=== PATIENT | male | born 1955 | race African-American/Black ===

== ENCOUNTER 2019-09-08 14:12 | Inpatient (IN) ==
--- NOTE | 2019-09-08 14:56 | PROVIDER DOCUMENTATION ---
HPI-Abdominal Pain/GI Problem - General Chief Complaint: Abdominal Pain Stated Complaint: STOMACH PAIN Time Seen by Provider: 09/08/19 14:37 Source: patient Allergies/Adverse Reactions: Patient Allergies Allergy/AdvReac Type Severity Reaction Status Date / Time morphine AdvReac Unknown Verified 09/02/19 05:43 Home Medications: Home Medication List Medication Instructions Recorded Confirmed Last Taken Type Amiodarone [Cordarone] 200 mg PO QHS 03/15/15 09/08/19 09/02/19 04:30 History 200 mg Famotidine 20 mg PO QHS 03/15/15 09/08/19 09/01/19 History 20 mg Hydralazine [Apresoline] 10 mg PO TID 03/15/15 09/08/19 09/02/19 04:30 History 50 mg Levothyroxine [Synthroid] 50 microgm PO QHS 03/15/15 09/08/19 09/01/19 History Furosemide [Lasix] 40 mg PO BID 07/04/16 09/08/19 09/01/19 History 40 mg Allopurinol 300 mg PO QHS 04/04/17 09/08/19 09/01/19 History 300 mg Calcitriol 0.25 mcg PO DIRECTED PRN 04/04/17 09/08/19 09/01/19 History Carvedilol 12.5 mg PO BID 04/04/17 09/08/19 09/02/19 04:30 History Metolazone 2.5 mg PO DIRECTED 04/04/17 09/08/19 09/01/19 History Apixaban [Eliquis] 5 mg PO BID 08/26/19 09/08/19 08/29/19 History Aspirin 81 mg PO QAM 08/26/19 09/08/19 08/29/19 History Exenatide Microspheres [Bydureon 2 mg SQ Q7D 08/26/19 09/08/19 08/30/19 History Bcise] Iron Fum,Ps Cmp/Vit C/Niacin 1 ea PO QHS 08/26/19 09/08/19 09/01/19 History [Integra Capsule] - History of Present Illness-ABD Nature of Presenting Problems: 63 YOM with PMH of CAD s/p bypass, HTN, Cholecystectomy on 09/02/19 presents with c/o worsening abdominal pain since surgery in the RLQ with associated n/v, weakness, single dark stool that occured today. Denies fever, chills, CP, SOB, diarrhea Abdominal Pain Onset Location: reports: RLQ Pain Radiation: reports: no radiation Quality of Pain: reports: aching, cramping Severity in ED: reports: severe Onset/Duration: reports: 2 days ago Timing: reports: still present Activities at Onset: reports: none, other (recent surgery) Exposure to sick contacts?: No Modifying Factors: improves with: nothing Associated Symptoms: reports: nausea, vomiting, weakness Last BM: this morning Dark Stools Present?: reports: black Rectal Bleeding: reports: none Rectal Pain: reports: none Emesis Description: reports: clear Bruising or Bleeding Gums?: No Similar Symptoms Previously?: No Recently seen or treated by another doctor?: Yes (recent castro by Dr. Bee) Review of Systems - Adult - REVIEW OF SYSTEMS - ADULT Constitutional: reports: no symptoms reported. denies: see HPI, chills, fever, fatique, night sweats, weight gain, weight loss, other Eyes: reports: no symptoms reported. denies: see HPI, discharge, dry eyes, decreased vision, blurred vision, double vision, eye pain, redness, other Ears, Nose, Mouth & Throat: reports: no symptoms reported. denies: see HPI, ear discharge, ear pain, hearing loss, tinnitus, epistaxis, sinus problem, nose pain, loose teeth, mouth/dental pain, mouth swelling, hoarseness, throat pain, throat swelling, other Cardiovascular: reports: no symptoms reported. denies: see HPI, chest pain, edema, heart murmur, irregular heart rate, orthopnea, palpitations, poor circulation, PND, syncope, other Respiratory: reports: no symptoms reported. denies: see HPI, chronic cough, cough, dyspnea on exertion, excessive sputum production, hemoptysis, pleurisy, shortness of breath, wheezing, other Gastrointestinal: reports: see HPI, abdominal pain, nausea, vomiting. denies: no symptoms reported, hematemesis, constipation, diarrhea, difficulty swallowing, frequent heartburn, poor appetite, rectal bleeding, other Genitourinary: reports: no symptoms reported. denies: see HPI, dysuria, discharge, frequency, flank pain, frequent UTI's, hematuria, hesitency, inc ontinence, urinary retention, urgency, other Musculoskeletal: reports: no symptoms reported. denies: see HPI, bone pain, back pain, frequent leg cramps, joint pain, joint swelling, muscle aches, muscle weakness, neck pain, other Integumentary: reports: no symptoms reported. denies: see HPI, hives, hair loss, itching, mole changes, nail changes, rash, skin sores/ulcer, skin thickening, other Neurological: reports: no symptoms reported. denies: see HPI, ataxia, dizziness/vertigo, headache/migraines, loss of balance, numbness, paresthesia, seizure, slurred speech, syncope, tremors, other Psychiatric: reports: no symptoms reported. denies: see HPI, anxiety, anti- depressant use, alcohol/drug dependence, depression, emotional problems, insomnia, panic attacks, suicidal thoughts, other Endocrine: reports: no symptoms reported. denies: see HPI, change in skin pigment, excessive sweating, goiter, cold intolerance, heat intolerance, increased hunger, increased thirst, polyuria, other Hematologic/Lymphatic: reports: no symptoms reported. denies: see HPI, blood clots, easy bruising, low blood count, lymphedema, prolonged bleeding, swollen lymph nodes, transfusions, other Allergic/Immunologic: reports: no symptoms reported. denies: see HPI, allergic reactions, allergic rhinitis, asthma, eczema, food allergy, frequent infections, hay fever, hives, positive PPD, urticaria, other Past History - Adult - PAST MEDICAL HISTORY-ADULT Review of Records: reports: Old Records Reviewed, Nursing Assessment Review, Social history reviewed & non-contributory. Major Childhood Illnesses: reports: denies history Cardiovascular: reports: CAD, HTN, hyperlipidemia Respiratory: reports: denies history Gastrointestinal: reports: denies history Obstetrical/Gynecological: reports: denies history Genitourinary: reports: kidney disease, prostate cancer Musculoskeletal: reports: denies history Neurological: reports: denies history Psychiatric: reports: denies history Endocrine/Immune: reports: Diabetes, thyroid disorder Other Conditions: reports: denies history - PRIOR SURGERIES/PROCEDURES Surgical/Procedure History: reports: cardiac stent, back/neck, other (thyroid, prostate) - IMMUNIZATION STATUS Childhood Immunizations: See Nurse Assessment Flu Vaccine: See Nurse Assessment - FAMILY HISTORY Family History: reviewed, not pertinent Physical Exam-General - PHYSICAL EXAM-ADULT Initial Vital Signs Reviewed: Yes - CONSTITUTIONAL General Appearance: alert, no apparent distress - EYES Eyes: PERRL/EOMI, pink conjunctivae - HEAD, EARS, NOSE, MOUTH & THROAT HENMT: normocephalic/atraumatic, moist mucous membranes, normal ENT inspection - NECK Neck: non-tender, full range of motion, supple - RESPIRATORY Respiratory: chest non-tender, lungs clear, normal breath sounds, no pleuratic chest pain, no respiratory distress, no accessory muscle use - CARDIOVASCULAR Cardiovascular: normal peripheral pulses, regular rate, rhythm, no edema, no gallop, no JVD, no murmur - GASTROINTESTINAL (ABDOMEN) Abdominal Exam: soft, tenderness - LYMPHATIC Lymphatic: no adenopathy - MUSCULOSKELETAL Back Exam: normal inspection Extremity: normal range of motion, non-tender, normal gait Peripheral Pulses: radial (R): 2+, radial (L): 2+ - SKIN Integumentary: normal color, normal turgor, warm/dry - NEUROLOGIC Neurologic: grossly normal - PSYCHIATRIC Psych/Mental Status: normal mood/affect, oriented x 3 Progress - PLAN OF CARE/RESULTS Progress/Plan/Lab Results: Vital Signs - 8 hr 09/08/19 14:28 Temperature 97.5 F L Pulse Rate 95 H Respiratory Rate 16 Blood Pressure 149/77 O2 Sat by Pulse Oximetry 99 Orders Category Date Time Status Saline Loc NOW Care 09/08/19 14:[address] ABD/PELVIS W/IV CONT ONLY [CT] Stat Exams 09/08/19 14:51 Ordered CBC WITH ELECTRONIC DIFF [HEME] Stat Lab 09/08/19 14:51 Uncollected COMPREHENSIVE METABOLIC PANEL [CHEM] Stat Lab 09/08/19 14:51 Uncollected PROTIME WITH INR [COAG] Stat Lab 09/08/19 14:51 Uncollected PTT [COAG] Stat Lab 09/08/19 14:51 Uncollected 1450: reviewed initial POC in triage room, pt and family are in agreement Result Diagrams: 09/15/19 06:55 09/14/19 08:15 - REASSESSMENT Reassessment #1 Time Reassessed: 16:30 (updated) Status: unchanged Reassessment #2 Time Reassessed: 17:45 Status: unchanged Reassessment #3 Time Reassessed: 18:18 Status: other (updated patient and family on labs) - EKG 1 Time of EKG reading by physician:: 16:04 EKG Read and Signed by:: Ilia Aguilera EKG Interpretation (*Must complete 3 of following elements*): Abnormal Rate: 96 Rhythm: NSR Antigo: normal QRS: LBB (incomplete), other (prolonged QTc) AR Interval: normal ST Wave: non-specific ST changes Prior EKG Comparison: changes noted (incomplete L BBB) - CT/MRI 1 CT Study: Abdomen, Pelvis Impression: See EMR Report (EXAM: CT ABDOMEN/PELVIS W/O CONTRAST 09/08/2019 HISTORY: RECENT CASTRO, NOW WITH PAIN WORSENING TECHNIQUE: This exam was performed using automated exposure control, adjustment of mA or kV according to patient size, and/or use of iterative reconstruction technique. COMMENT: There are no previous studies available for comparison. There is some apparent atelectasis or fibrosis in the posterior costophrenic sulci bilaterally. There is some fluid in the subphrenic space on the right. This has a CT density of over 73 Hounsfield units. There has been cholecystectomy. There is some dense material inferior to the danny hepatis and gallbladder fossa medial to the lower portion of the right hepatic lobe which may represent a hematoma. This measures over 6.7 cm in diameter. There is no evidence of biliary dilatation. There is no evidence of nephrolithiasis or hydronephrosis. There is a moderate amount of stool in the colon. The small bowel is not distended. There is hyperdense material present in the pelvis above the bladder and in the rectovesical pouch. This measures over 61 Hounsfield units in density. It is likely blood. There is ankylosis of the sacroiliac joints and severe degenerative disc and facet changes are present in the lumbar spine. There is no evidence of acute bony abnormality. IMPRESSION: Hematoma formation adjacent to the gallbladder fossa with free blood in the pelvis. Fluid in the right subphrenic space which is also likely blood. Electronically signed by Howard Valenzuela 09/08/2019 5:55 PM 09/08/19 [id number] Interpreting Physician: Howard Valenzuela MD Dictated Date/Time: 09/08/19 5480 cc: Aline Bee; Silvio So MD) - CONSULTS/PCP/HOSPITALIST Notification #1 *Consult/PCP/Hospitalist*: Dr. Dang Time Discussed: 18:09 Consult Disposition: Admit (will see in ED) Departure - Departure Date of Disposition Decision: 09/08/19 Time of Disposition Decision: 18:08 DIAGNOSIS: Elevated troponin, CHERRIE (acute kidney injury), Abdominal hematoma, Anticoagulant effect Disposition: ADMITTED INPATIENT 09 Certified Medical Emergency: Emergent Condition: Fair - Critical Care Note This patient required my direct & personal management of CC.: Yes Total Time (mins): 60 Critical Care Statement: This patient required my direct personal management to treat or rule out processes, the absence of which, could potentiallly result in sudden, clinically significant life or limb threatening deterioration. Attestation - Physician/ ALEJANDRA Attestation Patient care was provided by Advanced Practice Provider:: Yes Advanced Practice Provider:: Aline Bee Advanced Practice Provider documentation review:: The Mid-level provider documentation, treatment plan and medical decision making was reviewed by the vincenzo alonzo who agrees with all treatment and medical decision making by the MLP. The physician spent face to face time with patient:: Yes (Dr. Aguilera) Advanced Practice Provider documentation review:: Supervising physician onsite and consulted in the evaluation and care of this patient. The physician did have a face to face encounter with the patient.
[2019-09-08 15:46] LABS: URINE SOURCE CLEAN CATCH
[2019-09-08 15:51] LABS: BILIRUBIN URINE NEGATIVE (NEGATIVE); BLOOD URINE TRACE (NEGATIVE); COLOR YELLOW; GLUCOSE URINE 200 mg/dL (NEGATIVE); KETONE URINE NEGATIVE (NEGATIVE); LEUKOCYTES URINE NEGATIVE (NEGATIVE); NITRITE URINE NEGATIVE (NEGATIVE); PH URINE 5.5; PROTEIN URINE TRACE mg/dL (NEGATIVE); SP GRAVITY URINE 1.014; TURBIDITY URINE CLEAR (CLEAR); UROBILINOGEN URINE NORMAL (NORMAL)
[2019-09-08 15:57] LABS: UR EPITHELIAL CELLS <10 /HPF (<10); URINE BACTERIA NEGATIVE /HPF; URINE RBC <10 /HPF (<10); URINE WBC <10 /HPF (<10)
[2019-09-08 16:15] LABS: URINE CASTS NONE SEEN; URINE CRYSTALS NONE SEEN; URINE SMALL ROUND CELLS NONE SEEN; URINE YEAST NONE SEEN
[2019-09-08] MEDS ORDERED: ASPIRIN ONE (16:42)
[2019-09-08 17:01] LABS: INR 1.2; PROTIME 15.4 Seconds (11.0-16.0)
[2019-09-08 17:02] LABS: BASO# 0.01 X1000 (0.0-0.2); BASO% 0.1 % (0.0-0.8); HEMATOCRIT 20.5 % (42.0-52.0); HEMOGLOBIN 6.8 g/dL (14.0-18.0); IMM GRAN# 0.43 X1000 (0.0-0.04); IMM GRAN% 4.4 % (0.0-0.5); LYMPH# 1.03 X1000 (1.2-3.4); LYMPH% 10.6 % (20.5-51.1); MCHC 33.2 g/dL (33-37); MCV 81.3 FL (81-99); MONO# 1.07 X1000 (0.11-0.59); MPV 10.1 FL (7.4-10.4); NEUT# 7.19 X1000 (1.4-6.5); NEUT% 73.9 % (42.2-75.2); PLT 340 X1000 (130-400); PTT 34.9 Seconds (22.3-41.8); RBC 2.52 XMIL (4.7-6.1); RDW 14.6 % (11.5-14.5); WBC 9.73 X1000 (4.8-10.8)
--- NOTE | 2019-09-08 17:12 | EKG Report ---
Test Performed on : 09/08/2019 2:36:40 PM Test Reason : STOMACH PAIN Blood Pressure : / mmHG Vent. Rate : 096 BPM Atrial Rate : 096 BPM P-R Int : 174 ms QRS Dur : 118 ms QT Int : 396 ms P-R-T Axes : 067 014 063 degrees QTc Int : 500 ms Normal sinus rhythm. Incomplete left bundle branch block Nonspecific T wave abnormality Abnormal ECG When compared with ECG of 14-AUG-2019 13:05, (Unconfirmed) No significant change was found Unconfirmed Result
[2019-09-08 17:32] LABS: ALBUMIN 3.6 g/dL (3.5-5.0); CALCIUM 8.7 mg/dL (8.8-10.2); CREATININE 5.6 mg/dL (0.7-1.2); POTASSIUM 4.9 mmol/L (3.5-5.1); TOTAL BILIRUBIN 1.13 mg/dL (0.20-1.00); TOTAL PROTEIN 7.2 g/dL (6.3-8.3)
--- NOTE | 2019-09-08 17:57 | Diag Imaging Result Doc PS360 ---
EXAM: CT ABDOMEN/PELVIS W/O CONTRAST 09/08/2019 HISTORY: RECENT CASTRO, NOW WITH PAIN WORSENING TECHNIQUE: This exam was performed using automated exposure control, adjustment of mA or kV according to patient size, and/or use of iterative reconstruction technique. COMMENT: There are no previous studies available for comparison. There is some apparent atelectasis or fibrosis in the posterior costophrenic sulci bilaterally. There is some fluid in the subphrenic space on the right. This has a CT density of over 73 Hounsfield units. There has been cholecystectomy. There is some dense material inferior to the danny hepatis and gallbladder fossa medial to the lower portion of the right hepatic lobe which may represent a hematoma. This measures over 6.7 cm in diameter. There is no evidence of biliary dilatation. There is no evidence of nephrolithiasis or hydronephrosis. There is a moderate amount of stool in the colon. The small bowel is not distended. There is hyperdense material present in the pelvis above the bladder and in the rectovesical pouch. This measures over 61 Hounsfield units in density. It is likely blood. There is ankylosis of the sacroiliac joints and severe degenerative disc and facet changes are present in the lumbar spine. There is no evidence of acute bony abnormality. IMPRESSION: Hematoma formation adjacent to the gallbladder fossa with free blood in the pelvis. Fluid in the right subphrenic space which is also likely blood. Electronically signed by Howard Valenzuela 09/08/2019 5:55 PM
[2019-09-08] MEDS ORDERED: NS 1,000 ML IV ONE (18:00)
[2019-09-08] MEDS ORDERED: NS 500 ML IV ONE ×2 (18:17)
[2019-09-08] MEDS ORDERED: [UNRECOGNIZED DRUG - REMARK] MISC SCH (18:30)
[2019-09-08] MEDS ORDERED: DILUENT IV ONE (19:00)
[2019-09-08] MEDS ORDERED: KCENTRA IV ONE (19:00)
--- NOTE | 2019-09-08 19:59 | GENERAL SURGERY CONSULTATION ---
DATE: 09/08/2019 REASON FOR CONSULTATION: Hemoperitoneum. HISTORY OF PRESENT ILLNESS: This is a 63-year-old gentleman who underwent cholecystectomy by Dr. Bee laparoscopically on 09/02/2019. He is chronically anticoagulated for a bovine valve and atrial fibrillation, I believe. He also has a history of lower extremity venous ulcers. He is on Eliquis, which was resumed yesterday. Over the course of the day, he developed right-sided abdominal pain, came the ER where CT scan was obtained that showed fluid in the gallbladder fossa extending down along the pericolic gutter and the pelvis, consistent with blood. There is no free air. He was hemodynamically stable but was found to have a hemoglobin 6.8. His renal function has worsened acutely up to 5.6. Glucose is 304. MEDICAL HISTORY: As noted in his HPI. SURGICAL HISTORY: He has had RFA of bilateral lower extremities, recent cholecystectomy, spinal surgery, rotator cuff, prostatectomy, thyroidectomy and mitral bovine valve replacement. SOCIAL HISTORY: Denies any tobacco, alcohol or drugs currently. FAMILY HISTORY: Reviewed noncontributory. REVIEW OF SYSTEMS: Ten point negative otherwise. PHYSICAL EXAMINATION: He is afebrile. Pulse is in the 80s, blood pressure 149/77, oxygen saturation 99% on room air.General: He is alert, no acute distress. HEENT: There is no scleral icterus. Cardiovascular: Normal rate. Pulmonary: No increased work of breathing. Abdomen: Soft. There is no peritonitis. Incisions are intact. There is some bruising. There is tenderness along the right side of his abdomen but no rebound or guarding. There is no flank ecchymosis. White count is 9, hematocrit 20.5, platelets 340,000. INR is 1.20. Creatinine is 5.6. Sodium is low at 127, glucose is high at 304. I reviewed his CT scan, which is noncontrast. ASSESSMENT AND PLAN: A 63-year-old gentleman with bleeding on anticoagulation, status post laparoscopic cholecystectomy 6 days ago. He is hemodynamically stable. His abdominal exam is without peritonitis. As such, I would recommend correction of his anticoagulation. He has been given Kcentra and FFP in the emergency department. He will be transfused and will follow with serial hematocrits over the course of the night. He may ultimately require abdominal washout, but this would be ideal in the in a non-anticoagulated setting. If he were to deteriorate clinically, he will need more urgent operation. We did discuss the anticipated course of this. Also talked to Dr. Bee about it, and he is in agreement. He is being admitted to the hospitalist. Will follow along. cc: Daisy Dang MD MTDKaila
[2019-09-08] MEDS: DILAUDID IV PRN (23:39)
[2019-09-09] MEDS ORDERED: TYLENOL PR PRN (00:22)
[2019-09-09 02:02] LABS: CK INDEX 2.9 (0.0-2.5); CK-MB 9.46 ng/mL (0.0-5.0)
[2019-09-09] MEDS: DILAUDID IV PRN ×4 (03:51→17:05)
[2019-09-09 04:19] LABS: BASO# 0.02 X1000 (0.0-0.2); BASO% 0.3 % (0.0-0.8); EOS# 0.01 X1000 (0.0-0.7); EOS% 0.1 % (0.0-10.0); HEMATOCRIT 24.8 % (42.0-52.0); HEMOGLOBIN 8.4 g/dL (14.0-18.0); IMM GRAN# 0.27 X1000 (0.0-0.04); IMM GRAN% 3.6 % (0.0-0.5); LYMPH# 1.31 X1000 (1.2-3.4); LYMPH% 17.2 % (20.5-51.1); MCH 27.5 PG (27-31); MCHC 33.9 g/dL (33-37); MCV 81.3 FL (81-99); MONO# 0.81 X1000 (0.11-0.59); MONO% 10.7 % (1.7-9.3); MPV 9.7 FL (7.4-10.4); NEUT# 5.18 X1000 (1.4-6.5); NEUT% 68.1 % (42.2-75.2); PLT 327 X1000 (130-400); RBC 3.05 XMIL (4.7-6.1); RDW 14.1 % (11.5-14.5)
[2019-09-09 04:31] LABS: INR 1.15; PROTIME 14.9 Seconds (11.0-16.0)
[2019-09-09 04:32] LABS: PTT 36.1 Seconds (22.3-41.8)
[2019-09-09 04:35] LABS: ALB/GLOB RATIO 0.8; ALBUMIN 3.4 g/dL (3.5-5.0); CREATININE 4.9 mg/dL (0.7-1.2); MAGNESIUM 2.5 mg/dL (1.5-2.7); POTASSIUM 4.3 mmol/L (3.5-5.1); TOTAL BILIRUBIN 1.18 mg/dL (0.20-1.00); TOTAL PROTEIN 7.7 g/dL (6.3-8.3)
[2019-09-09 04:53] LABS: IRON SATURATION 8 %; TIBC 362 ug/dL; TOTAL IRON 29 ug/dL (53-167); UNBOUND IRON 333 ug/dL (112-346)
[2019-09-09 05:10] LABS: BANDS 8 % (0-1); LYMPHS 6 % (21-51); MONO 6 % (1-9); SEGS 68 % (42-75)
[2019-09-09 05:11] LABS: TSH 68.66 uIUmL (0.27-4.20)
[2019-09-09 05:33] LABS: CK INDEX 2.8 (0.0-2.5); CK-MB 9.37 ng/mL (0.0-5.0)
[2019-09-09] MEDS: PROTONIX IV SCH ×2 (06:03→20:58)
[2019-09-09] MEDS: HUMULIN R SUBQ SCH ×4 (06:28→20:58)
--- NOTE | 2019-09-09 07:05 | HISTORY AND PHYSICAL ---
PRIMARY CARE PROVIDER: Dr. Silvio So. ESTHETICIAN/OWNER: Dr. Orlando. DATE AND TIME: 09/08/2019 at 2000. CHIEF COMPLAINT: Abdominal pain. HISTORY OF PRESENT ILLNESS: Mr. Marx is a 63-year-old male who just recently did undergo a laparoscopic cholecystectomy with Dr. Bee on 09/02. From what I understand, this was performed as an outpatient surgery. The patient does take Eliquis secondary to a history of atrial fibrillation and a mitral bovine valve replacement. His Eliquis had been held for his surgery. He did start this back yesterday on 09/07. The patient has had some abdominal pain since his surgery, though he stated this became worse yesterday and did progressively get worse over the course of the day. He states this is in his right side though does radiate across his abdomen to the left, and around into his back as well. He describes it as an achy cramping type pain in nature. He has also reported that he has had some associated nausea and vomiting. He denies any diarrhea, though stated that he did have a melanotic stool this morning. He has reported that he has felt dizzy, weak, and fatigued as well. He denies any fever, body aches, or chills. He denies any chest pain, shortness of breath, or cough. He denies any dysuria or urinary frequency. The patient does report that he has some swelling in his bilateral lower extremities occasionally, though this does not appear to be worse at this time. His and niece were present at bedside during my examination. The patient's vital signs have been stable. Heart rate and blood pressure are within normal limits. He is 99 to 100 percent on room air. Upon further evaluation in the ER, I did note that he was anemic with a hemoglobin of 6.8, hematocrit 20.5, and platelet count is 340,000. PTT 15.4, INR 1.2, and PTT was 34.9. Also, noted that he does have chronic kidney disease though he does have acute kidney injury at this time. His creatinine has increased. It is currently 5.6 with GFR 13. Also, noted were his troponin TI sensitivity as well as his CK were both elevated. This could be secondary to his renal function. The patient is denying any chest pain at this time. EKG showed normal sinus rhythm with incomplete left bundle branch block and nonspecific T-wave abnormality at a rate of 96. His CT did show a hematoma formation adjacent to the gallbladder fossa with free blood in the pelvis. Fluid at the right subphrenic space, which is also likely blood. Dr. Dang with Surgery was notified. He has evaluated the patient as well as Dr. Bee. We did evaluate the patient at the time of my examination. The patient is going to be placed NPO. We are going to give blood products of packed red blood cells and FFP. He will also receive Kcentra. He will be placed in the PVC unit for close monitoring. REVIEW OF SYSTEMS: A 14 point review of systems was conducted with the patient. All were negative except for pertinent positives mentioned in the HPI. PAST MEDICAL HISTORY: 1. Atrial fibrillation, paroxysmal, proximal. The patient is currently in sinus rhythm. 2. Nonischemic cardiomyopathy. 3. Systolic congestive heart failure with a last known ejection fraction of 60 to 65 percent in February of 2018. 4. Hypertension. 5. Chronic kidney disease. 6. Hyperlipidemia with hypertriglyceridemia. 7. Diabetes mellitus type 2. 8. History of prostate cancer status post prostatectomy. 9. Coronary artery disease status post CABG and stents. 10. History of CVA. 11. Peripheral vascular disease. 12. Chronic venous stasis. 13. Hypothyroidism. 14. History of bovine mitral valve replacement. PAST SURGICAL HISTORY: 1. RFA of bilateral lower extremities. 2. Recent laparoscopic cholecystectomy with Dr. Bee on 09/02/2019. 3. Spinal surgery. 4. Rotator cuff repair. 5. Prostatectomy. 6. Thyroidectomy. 7. Mitral valve bovine valve replacement. 8. Coronary artery bypass graft. 9. Coronary stent. 10. Permanent pacemaker placement. SOCIAL HISTORY: The patient has no known history of tobacco, alcohol or illicit drug use. He does live at home with his . She was present at bedside during my examination. FAMILY HISTORY: Positive for his mother having a history of diabetes and hypertension. She secondary to a brain aneurysm. His father had a history of congestive heart failure. He did have a brother who at age 42 from myocardial infarction. ALLERGIES: Patient has allergy to morphine. It causes him to have hallucinations and confusion. HOME MEDICATIONS: 1. Allopurinol 300 mg p.o. at bedtime. 2. Amiodarone 200 mg p.o. at bedtime. 3. Eliquis 5 mg p.o. b.i.d. 4. Aspirin 81 mg p.o. daily. 5. Calcitriol 0.25 mg p.o. as directed. 6. Carvedilol 12.5 mg p.o. b.i.d. 7. Bydureon Bcise 2 mg subcu q.7 days. 8. Famotidine 20 mg p.o. at bedtime. 9. Lasix 40 mg p.o. b.i.d. 10. Apresoline 10 mg p.o. t.i.d. 11. Integra capsule 1 p.o. at bedtime. 12. Levothyroxine 50 mcg p.o. at bedtime. 13. The patient states he did previously take metolazone but he is not taking this at this time. DIAGNOSTIC DATA/LABORATORY RESULTS: White blood cell count is 9730, hemoglobin 6.8, hematocrit 20.5, and platelet count is 340,000. PT 15.4, INR 1.2, PTT is 34.9. Sodium 127, potassium 4.9, chloride 84, serum bicarb is 22, BUN 11, and creatinine 5.6, GFR 13, glucose 304, and calcium 8.7. Liver function tests within normal limits except for total bilirubin slightly elevated at 1.13. CK 328, CK index 2.9, CK-MB is 9.46. Troponin T sensitivity is 165 with a repeat of 164. Urinalysis was obtained via clean catch, and was positive for trace protein, glucose, and trace blood. This was negative for ketones, nitrites, leukocytes, white blood cells, or bacteria. EKG showed normal sinus rhythm with incomplete left bundle branch block and nonspecific T-wave abnormality at a rate of 96 with a QTc of 500. CT of the abdomen and pelvis did show a hematoma formation adjacent to the gallbladder fossa with free blood in the pelvis. There was fluid in the right subphrenic space which also is likely blood. PHYSICAL EXAMINATION: VITAL SIGNS: Temperature 97.7 degrees, heart rate 90, respirations 20, blood pressure is 133/71, and oxygen saturation is 96% on room air. GENERAL: Mr. Lim is a very pleasant 63-year-old male who was resting in the ER stretcher. He does not appear to feel well though is not in any distress. He was reporting some abdominal pain. He was awake, alert, and able to answer questions and follow commands appropriately. HEENT: Head is atraumatic, normocephalic. Pupils were equal, round, reactive to light, were 3 mm bilaterally and brisk. Sub-conjunctivae were pale. Oral mucosa is moist. Oropharynx is clear. NECK: Supple. Trachea midline. CARDIOVASCULAR: Patient has S1-S2 present. He does have a murmur noted as well. He has a regular rate and rhythm. PULMONARY: Patient has symmetrical chest expansion bilaterally. Lung sounds are clear to auscultation bilateral full bird. ABDOMEN: Soft, but is distended. He did have generalized abdominal tenderness noted. This was worse on the right. Bowel sounds were present in all 4 quadrants, and were slightly hyperactive. EXTREMITIES: No cyanosis or edema present. Pulse, motor and sensory were intact in all extremities. Radial pulses are 2+ bilaterally. Pedal pulses 1+ bilaterally. INTEGUMENTARY: The patient's skin color is slightly pale, though is dry and intact. NEUROLOGICAL: Patient is alert and oriented to person, place, time, and situation. He was able to move all extremities. There are no focal neurological deficits noted. ASSESSMENT AND PLAN: 1. Hemoperitoneum. The patient had been seen by Dr. Dang and Dr. Bee who did perform his surgery. The patient has been seen by the surgical team which included Dr. Dang and Dr. Bee who performed his surgery. He will remain NPO at this time. We are going to transfuse him with 1 unit of FFP, 1 unit of packed red blood cells. He did also already receive Kcentra 3318 units IV. The patient is Carla. The patient is hemodynamically stable at this time. We are going to provide some general IV fluid hydration as well. He will receive 1 L of normal saline at 120 mL/h. He also will receive volume with his blood products. The patient does have a history of congestive heart failure. We will monitor his fluid volume status in the morning and determine further IV hydration from there. We will await further recommendations from the surgical team. 2. Symptomatic anemia. This is likely secondary to his blood loss. Also of note, the patient did report melanotic stool today prior to arrival to the ER. He did have a positive Hemoccult stool as well. We will monitor this closely though this may likely indicate possible gastrointestinal bleeding as well. He will place the patient with IV Protonix q.24 hours. We will continue to monitor this closely. We have ordered an anemia profile. 3. Chronic anticoagulation related to history of paroxysmal atrial fibrillation and a mitral bovine valve replacement. We are holding his anticoagulation at this time given his hemoperitoneum and symptomatic anemia. The patient is in sinus rhythm at this time. 4. Coronary artery disease status post coronary artery bypass graft and stents. 5. History of mitral, bovine valve replacement. 6. Acute on chronic kidney disease. The patient does have a baseline creatinine that is anywhere from 2.5 to 3.3. Upon discharge after his surgery, his creatinine was 2.7. At this time, it has increased to 5.6. This is likely secondary to his blood loss. We are going to provide some IV hydration as well as he will receive volume with blood and FFP as well. We will avoid nephrotoxic medications and renally dose medicines as necessary. We will monitor this closely. We will recheck a CMP in the morning. 7. Diabetes mellitus type 2. We will do pattern fingerstick blood sugars, and place him with a sliding scale regular insulin with patient specific dosing due to the patient is NPO at this time. 8. Hypertension. The patient's blood pressures are within normal limits. He is NPO at this time. We will monitor closely and implement IV antihypertensives as necessary. 9. Hypothyroidism. The patient does take oral levothyroxine. He is NPO at this time. We are going to check a TSH in the morning. We will continue to follow. 10. DVT prophylaxis to be provided with sequential compression devices. The patient has been placed on the PVC unit for close monitoring. He will be on continuous cardiac telemetry. He will have vital signs q.4 hours. We will do strict intake and output, incentive spirometry. The patient's troponin and CK's are elevated though he is not reporting any chest pain at this time. This could be secondary to his acute kidney injury as well as he did have symptomatic anemia present also. We will continue to monitor this closely. We will continue with the series of cardiac enzymes. We will repeat EKG in the morning. Further orders and recommendations pending hospital course, diagnostic studies, and physician evaluation. Dictated by CECELIA Rosas for Manuel Curiel MD I have performed a face to face diagnostic evalulation. Labs/xrays- reviewed. Exam- chest- clear, CV- regular, Abd- diffuse tenderness. A/P- Hemoperitoneum, anemia- Admit, NPO, pain control, general surgery consult. Dr. Curiel cc: Manuel Curiel MD [facility]
--- NOTE | 2019-09-09 07:11 | GENERAL SURGERY PROGRESS NOTE ---
DATE: 09/09/2019 SUBJECTIVE: Mr. Marx is now a week after laparoscopic cholecystectomy that apparently has been complicated by some perioperative bleeding. He had received perioperative Lovenox due to his valve and atrial fibrillation. He is routinely on Eliquis. This morning, he is doing generally well. He is afebrile with a heart rate of 87, blood pressure 136/61. His hemoglobin is up to 8.4, hematocrit 24.8. His abdomen is mildly tender. His white count is 7600 with 68% neutrophils. His BUN yesterday upon admission was 111 with a creatinine of 5.6; that is in the setting of typical BUN around 40 and a creatinine in the mid 2s. ASSESSMENT: This gentleman no doubt had perioperative bleeding due to his anticoagulation. There is no evidence of ongoing bleeding. His hemodynamics are stable. His hemoglobin responded nicely to packed red blood cell infusion. He has suffered some intravascular volume depletion and acute kidney injury. I do recommend adequate intravenous hydration. I do not see any urgency of taking to the operating room in the setting of an absence of ongoing bleeding. I will rather feed him and allow him to recover. I will continue to follow along. cc: Lebron Bee MD
--- NOTE | 2019-09-09 08:18 | EKG Report ---
Test Performed on : 09/09/2019 05:47:23 AM Test Reason : Elevated Troponin Blood Pressure : / mmHG Vent. Rate : 085 BPM Atrial Rate : 085 BPM P-R Int : 182 ms QRS Dur : 130 ms QT Int : 460 ms P-R-T Axes : 045 -12 093 degrees QTc Int : 547 ms Normal sinus rhythm. Possible Left atrial enlargement Nonspecific intraventricular block Abnormal QRS-T angle, consider primary T wave abnormality Abnormal ECG When compared with ECG of 08-SEP-2019 14:36, (Unconfirmed) No significant change was found Confirmed by Morelia Young MD ([id number]) on 09/09/2019 8:41:26 AM
[2019-09-09] MEDS ORDERED: BLISTEX MEDICATED BERRY LIP BALM TOP PRN (10:04)
[2019-09-09] MEDS ORDERED: NON-FORMULARY MED (Exenatide Microspheres [Bydureon Bcise] 2 MG) SQ SCH (18:00)
--- NOTE | 2019-09-09 18:26 | PROGRESS NOTE ---
DATE: 09/09/2019 SUBJECTIVE: Patient has no major complaints. OBJECTIVE: Blood pressure is 156/61, heart rate of 88, respiratory rate of 18, temperature of 97.5 degrees. Cardiovascular: Regular rate and rhythm. Pulmonary: Bilateral breath sounds. Clear to auscultation. Gastrointestinal: Soft, nontender, nondistended. Bowel sounds are positive. Extremities: No clubbing or cyanosis. Lymphatic: No peripheral edema. Neurological: Nonfocal. LABORATORY DATA: White count 7, hemoglobin and hematocrit 8 and 24, platelets 327,000. Sodium is 129, creatinine 4.9, glucose 269. TSH 68.66. B12 is 897. PROBLEM LIST: 1. Hemoperitoneum after a laparoscopic cholecystectomy and patient had been on anticoagulants. His hemoglobin and hematocrit has stabilized after transfusion. His INR is normal. The only thing that concerns me a little bit is that he did report melena this week and 2 days ago he had black tarry stools, which would not be explained by the hemoperitoneum. He had a hematoma near the gallbladder wall fossa, so I am not entirely sure if possibly there is a gastrointestinal bleed issue. I will get an opinion from Gastroenterology and see if he needs endoscopy. Obviously, we are going to hold all his anticoagulants, continue his amiodarone, stop his aspirin. Patient is overall stable. We will continue to monitor closely. 2. Hypothyroidism. Does not seem to be controlled. We will continue. I will check a free T4 and then we will see what the numbers show. Adjust his Synthroid dose based on those results. DISPOSITION: Pending his clinical status. cc: Erich Carl MD
[2019-09-09] MEDS: NS 1,000 ML IV SCH (18:36)
[2019-09-09 19:35] LABS: HEMATOCRIT 22.9 % (42.0-52.0); HEMOGLOBIN 7.6 g/dL (14.0-18.0)
[2019-09-09] MEDS: SYNTHROID PO SCH (20:58)
[2019-09-09] MEDS: SODIUM CHLORIDE 0.9% INJ SCH (20:58)
[2019-09-09] MEDS: PEPCID PO SCH (20:58)
[2019-09-09] MEDS: CORDARONE PO SCH (20:58)
[2019-09-09] MEDS: COREG PO SCH (20:58)
[2019-09-10] MEDS: DILAUDID IV PRN ×4 (02:11→20:40)
[2019-09-10] MEDS: HUMULIN R SUBQ SCH ×4 (06:18→20:34)
[2019-09-10 06:22] LABS: BASO# 0.02 X1000 (0.0-0.2); BASO% 0.2 % (0.0-0.8); EOS# 0.02 X1000 (0.0-0.7); EOS% 0.2 % (0.0-10.0); HEMATOCRIT 22.6 % (42.0-52.0); HEMOGLOBIN 7.5 g/dL (14.0-18.0); IMM GRAN# 0.26 X1000 (0.0-0.04); IMM GRAN% 3.1 % (0.0-0.5); LYMPH% 9.6 % (20.5-51.1); MCH 28.1 PG (27-31); MCHC 33.2 g/dL (33-37); MCV 84.6 FL (81-99); MONO# 1.21 X1000 (0.11-0.59); MONO% 14.5 % (1.7-9.3); MPV 9.8 FL (7.4-10.4); NEUT# 6.05 X1000 (1.4-6.5); NEUT% 72.4 % (42.2-75.2); PLT 347 X1000 (130-400); RBC 2.67 XMIL (4.7-6.1); RDW 14.8 % (11.5-14.5); WBC 8.36 X1000 (4.8-10.8)
[2019-09-10 06:50] LABS: CALCIUM 8.8 mg/dL (8.8-10.2); CREATININE 4.2 mg/dL (0.7-1.2); POTASSIUM 4.5 mmol/L (3.5-5.1)
[2019-09-10] MEDS: NS 1,000 ML IV SCH ×2 (08:01→20:33)
[2019-09-10] MEDS: PROTONIX IV SCH (08:02)
[2019-09-10] MEDS: COREG PO SCH ×2 (08:02→20:34)
[2019-09-10] MEDS: SODIUM CHLORIDE 0.9% INJ SCH (08:02)
[2019-09-10] MEDS: ROCALTROL PO SCH (08:02)
[2019-09-10] MEDS: ZAROXOLYN PO SCH (08:02)
[2019-09-10] MEDS: ZOFRAN IV PRN (08:20)
[2019-09-10] MEDS ORDERED: DIPRIVAN 1% ONE (11:00)
[2019-09-10] MEDS ORDERED: BICITRA ONE (11:14)
[2019-09-10] MEDS ORDERED: PEPCID ONE (11:14)
[2019-09-10] MEDS ORDERED: REGLAN ONE (11:14)
[2019-09-10] MEDS ORDERED: AMIDATE ONE (11:22)
[2019-09-10] MEDS ORDERED: EPHEDRINE ONE (11:36)
--- NOTE | 2019-09-10 11:49 | ENDOSCOPY OPERATIVE NOTE ---
[facility] ENDOSCOPY OPERATIVE NOTE , EGD PROCEDURE REPORT PATIENT: Isaias Marx ADMISSION DATE: 09/10/2019 MR#: [id number] : 1955 PROCEDURE DATE: 09/10/2019 SURGEON: Benjamín Arthur MD STATUS: inpatient QUALITY ASSURANCE MONITOR BODY: Lissa Castaneda and Bernardo Bass PREOPERATIVE DIAGNOSIS: The patient is a 63 yr old male here for an EGD due to melena and acute post hemorrhagic anemia. PROCEDURE PERFORMED: EGD w/ snare technique MEDICATIONS: Per Anesthesia TOPICAL ANESTHETIC: none CONSENT: The patient understands the risks and benefits of the procedure and understands that these r isks include, but are not limited to: sedation, allergic reaction, infection, perforation and/or bleeding. Alternative means of evaluation and treatment include, among others: physical exam, x-rays, and/or surgical intervention. The patient elects to proceed with this endoscopic procedure. HISORY AND PHYSICAL: 09/10/2019 DESCRIPTION OF PROCEDURE: During intra-op preparation period all mechanical and medical equipment was checked for proper function. Hand hygiene and appropriate measures for infection prevention was taken. After the risks, benefits and alternatives of the procedure were thoroughly explained, Informed consent was verified, confirmed and timeout was successfully executed by the treatment team. The patient was anesthetized with topical anesthesia and the [id number] ([id number]) endoscope was introduced through the mouth and advanced to the second portion of the duoden um. Retroflexion was performed in the stomach and revealed no abnormalities. The gastroscope was then slowly withdraw n and removed. ESOPHAGUS: Mild reflux esophagitis was found in the distal esophagus. STOMACH: Two 12 mm semi-pedunculated polyps were found in the gastric body. Polypectomies were perfo rmed using snare cautery. The resection was complete, the polyp tissue was completely retrieved and sent to histology . The stomach otherwise appeared normal. DUODENUM: The duodenal mucosa showed no abnormalities. SPECIMENS REMOVED: No ADVERSE EVENTS: There were no complications. POSTOPERATIVE DIAGNOSIS: 1. Reflux esophagitis in the distal esophagus 2. Two 12 mm polyps were found in the gastric body; polypectomies were performed using snare cautery 3. The stomach otherwise appeared normal 4. The duodenal mucosa showed no abnormalities RECOMMENDATIONS: 1. Resume pre-procedure medications 2. Resume previous diet 3. Follow-up biopsy results in 2 weeks 4. Transfer to [facility] REPEAT EXAM: Benjamín Arthur MD eSigned: Benjamín Arthur MD 09/10/2019 11:48 AM cc: PATIENT NAME: Isaias Marx MR#: [id number]
--- NOTE | 2019-09-10 15:15 | PROGRESS NOTE ---
DATE: 09/10/2019 SUBJECTIVE: Patient has no major complaints. OBJECTIVE: Vital Signs: Blood pressure 120/59, heart rate 77, respiratory rate of 19, temperature 97.7 degrees. 100% on room air. Cardiovascular: Regular rate and rhythm. Pulmonary: Bilateral breath sounds clear to auscultation. Gastrointestinal: Abdomen soft, nontender, nondistended. Bowel sounds are positive. LABORATORY DATA: White count 8, hemoglobin and hematocrit 7.5 and 22, platelets 344,000. Creatinine is 4.2. Not really sure what his baseline is. This is much worse because it looks like he was 2.6, 2.7. He has been this high before but right now he is at stage 4. PROBLEM LIST: 1. Hemoperitoneum after laparoscopic cholecystectomy. The patient had been on anticoagulants which are being held. Fresh frozen plasma was given and improved overall. Hemoglobin and hematocrit has overall been stable. We will continue to monitor. 2. Potential gastrointestinal bleed. There was no gross bleeding, but he did have polypectomies. He reported melena. Dr. Arthur has graciously already done endoscopy on him and removed some polyps, but no active bleeding. 3. Atrial fibrillation. He is on amiodarone. Continue his regular medications. 4. Hypothyroidism. His TSH is 68. In any case patient is stable. We will continue to follow. I think he is probably okay to go to the floor at the discretion of surgery, but we will follow. We do need to work on bowel regimen and getting him up out of bed. I feel like he is kind of just lying in bed here with no anticoagulants at risk for deep venous thrombosis. cc: Erich Carl MD
--- NOTE | 2019-09-10 15:24 | GASTROENTEROLOGY CONSULTATION ---
DATE: 09/10/2019 REASON FOR CONSULTATION: Anemia, melena, Hemoccult-positive stool. HISTORY OF PRESENT ILLNESS: This is a 63-year-old male who was admitted on 09/08/2019 with abdominal pain. He had recent cholecystectomy on 09/02/[address] Lebron Bee. The patient had come into the emergency room for abdominal pain. CT scan had showed hematoma formation adjacent to the gallbladder fossa with free blood in the pelvis, fluid in the right subphrenic space also likely to be blood. The patient has had decrease in his hemoglobin and hematocrit. He had fresh frozen plasma on 09/08/2019 and a unit of packed red blood cells on 09/08/2019. He does have a history of mitral valve replacement, bovine. He had been on Eliquis and I believe the Eliquis was restarted the day before his admission. He had also been on Lovenox, from the records I believe all those anticoagulants have been held since admission. Today his hemoglobin and hematocrit was 7.5 and 22.6. He does have another unit of packed red blood cells ordered. PT/INR on 09/09/2019 showed PT of 14.9, INR 1.15, PTT 36.1. The patient does report continued abdominal pain. He reports weakness. He has not been able to get up much. He does report some dizziness. He had noticed a black stool about 2 days ago. He states he has not had a bowel movement over the last several days. He has not been able to eat much. A stool for Hemoccult done on 09/08 was positive. PAST MEDICAL HISTORY: History of recent cholecystectomy on 09/02/2019, history of atrial fibrillation, history of cardiomyopathy, systolic congestive heart failure, hypertension, chronic kidney disease, hyperlipidemia, hypertriglyceridemia, diabetes type 2, history of prostate cancer, coronary artery disease, history of CABG and cardiovascular stents, history of CVA, history of peripheral vascular disease, history of chronic venous stasis ulcers, hypothyroidism, history of bovine mitral valve replacement on chronic anticoagulation. PAST SURGICAL HISTORY: Recent laparoscopic cholecystectomy by Dr. Bee on 09/02/2019, bilateral lower extremity surgeries, vascular surgery, spinal surgery, rotator cuff repair, prostatectomy, thyroidectomy, mitral valve bovine valve replacement, coronary artery bypass graft, coronary artery stents, pacemaker placement. ALLERGIES: Morphine causing unknown reaction. HOME MEDICATIONS: Allopurinol 300 mg every night, Cordarone 200 mg every night, Eliquis 5 mg twice a day which has been held, aspirin 81 mg daily has been held, calcitriol 0.25 mcg as directed, carvedilol 12.5 mg twice a day, Bydureon 2 mg subcutaneous every 7 days, famotidine 20 mg every night, Lasix 40 mg twice a day, Apresoline 10 mg 3 times a day, iron plus multivitamin every night, levothyroxine 50 mcg every night, metolazone 2.5 mg as directed. SOCIAL HISTORY: No tobacco or alcohol use. He is . FAMILY HISTORY: For diabetes and hypertension in his mother of brain aneurysm. Father had congestive heart failure. Brother with myocardial infarction at age 42. REVIEW OF SYSTEMS: Per history of present illness. PHYSICAL EXAMINATION: Vital Signs: Temperature 97.8 degrees, pulse 79, respirations 12, blood pressure 100/55. General: Patient was awake and alert. His was at the bedside. He is complaining of some abdominal pain. He states he had a black tarry stool several days ago. He has had some dizziness. He is weak. HEENT: Normocephalic, atraumatic. Pupils equal, round, reactive to light. Sclerae nonicteric. Cardiovascular: Regular rate and rhythm. History of pacemaker. Respiratory: Lung sounds essentially clear. Abdomen: Healing laparoscopic incisions from cholecystectomy on 09/02/2019. Otherwise soft with some tenderness noted. Positive bowel sounds. Neurological: Cranial nerves 2-12 grossly intact. Patient is awake and alert. LABORATORY: Hematology. WBC 8.36, hemoglobin 7.5, hematocrit 22.6, MCV 84.6, platelet 347,000. Coagulation. Pro time 14.9, INR 1.15, PTT 36.1. Chemistry. Sodium 133, potassium 4.5, chloride 93, CO2 21, BUN 95, creatinine 4.2, glucose 190, calcium 8.8, magnesium 2.5. Iron 29, TIBC 362, percent saturation 8, ferritin 210, total bilirubin 1.18, AST 20, ALT 22, alkaline phosphatase 98, creatine kinase 33, creatine kinase index 2.8, MB 9.37, troponin 161, TSH 68.66, vitamin B12 897. IMAGING STUDY RESULTS: CT scan of the abdomen and pelvis on 09/08/2019 showed hematoma formation adjacent to the gallbladder fossa with free blood in the pelvis and fluid in the right subphrenic space likely blood. Patient had Hemoccult-positive stool. ASSESSMENT AND PLAN: 1. Recent cholecystectomy with hemoperitoneum after surgery. 2. Anemia. Patient has received packed red blood cells along with a unit of fresh frozen plasma. 3. Melena. 4. Hemoccult-positive stool. 5. Multiple medical problems including congestive heart failure, coronary artery disease, history of coronary artery bypass graft, mitral valve replacement with bovine valve, diabetes, hypothyroidism, history of prostate cancer, history of peripheral vascular disease, history of pacemaker placement. PLAN: Continue supportive care. Continue to monitor for active bleeding. Monitor hemoglobin and hematocrit. Transfuse packed red blood cells as needed. We will try to proceed with EGD today for GI evaluation for possible GI bleeding. The patient's anticoagulants have been held at this time. We will continue to follow and further plans to be made according to findings. I have discussed EGD procedure along with benefits and risks with the patient and his and they wish to proceed. I have discussed this case with Dr. Arthur. Thank you for this consultation. Dictated by CECELIA Serrato for Benjamín Arthur MD cc: CECELIA Pat MD
--- NOTE | 2019-09-10 15:31 | GENERAL SURGERY PROGRESS NOTE ---
DATE: 09/10/2019 SUBJECTIVE: Mr. Marx is doing generally well. OBJECTIVE: His heart rate is 75, blood pressure 118/67. LABORATORY DATA: His hemoglobin today was 7.5, hematocrit 22.6. BUN is down to 95, creatinine down to 4.2. PLAN: Transfuse 1 unit of blood. He is to undergo endoscopy today to evaluate for any possible intraluminal GI bleeding. The plan is to continue to observe him unless he shows evidence of ongoing bleeding. Also hydrate him in order to bring his BUN and creatinine back down to baseline. If at any point we feel that he is continuing to bleed intra-abdominally, we will plan laparoscopy, but this should not happen since his coagulopathy has been corrected. cc: Lebron Bee MD
[2019-09-10] MEDS: CORDARONE PO SCH (20:33)
[2019-09-10] MEDS: SYNTHROID PO SCH (20:33)
[2019-09-10] MEDS: APRESOLINE PO SCH (20:33)
[2019-09-10] MEDS: PEPCID PO SCH (20:34)
[2019-09-10] MEDS: PATIENT'S OWN MED PO SCH (20:34)
[2019-09-10] MEDS ORDERED: APRESOLINE PO SCH (21:00)
[2019-09-11] MEDS: DILAUDID IV PRN ×6 (00:43→22:49)
[2019-09-11] MEDS: APRESOLINE PO SCH ×3 (06:14→22:43)
[2019-09-11] MEDS: PRILOSEC PO SCH (06:14)
[2019-09-11] MEDS: HUMULIN R SUBQ SCH ×4 (06:15→22:39)
[2019-09-11 06:50] LABS: BASO# 0.02 X1000 (0.0-0.2); BASO% 0.2 % (0.0-0.8); EOS# 0.03 X1000 (0.0-0.7); EOS% 0.3 % (0.0-10.0); HEMATOCRIT 26.4 % (42.0-52.0); HEMOGLOBIN 8.6 g/dL (14.0-18.0); IMM GRAN# 0.16 X1000 (0.0-0.04); IMM GRAN% 1.6 % (0.0-0.5); LYMPH# 0.77 X1000 (1.2-3.4); LYMPH% 7.7 % (20.5-51.1); MCH 27.7 PG (27-31); MCHC 32.6 g/dL (33-37); MCV 84.9 FL (81-99); MONO# 0.86 X1000 (0.11-0.59); MONO% 8.6 % (1.7-9.3); MPV 9.8 FL (7.4-10.4); NEUT# 8.14 X1000 (1.4-6.5); NEUT% 81.6 % (42.2-75.2); PLT 376 X1000 (130-400); RBC 3.11 XMIL (4.7-6.1); RDW 14.7 % (11.5-14.5); WBC 9.98 X1000 (4.8-10.8)
[2019-09-11 07:24] LABS: CALCIUM 8.8 mg/dL (8.8-10.2); CREATININE 3.7 mg/dL (0.7-1.2); POTASSIUM 4.2 mmol/L (3.5-5.1)
[2019-09-11] MEDS: NS 1,000 ML IV SCH (08:19)
[2019-09-11] MEDS: COREG PO SCH ×2 (08:19→22:43)
--- NOTE | 2019-09-11 15:01 | PROGRESS NOTE ---
DATE: 09/11/2019 Mr. Isaias Marx is status post laparoscopic cholecystectomy per Dr. Bee. His postoperative convalescence has been complicated by bleeding and his anticoagulation medications have been stopped. Today he is awake. He is in bed. His abdomen is distended but not tightly so. He appears to be comfortable. His hematocrit is stable at 26%. BUN and creatinine are 86 and 3.7. That is down from 95 and 4.2. His heart rate 72, blood pressure 108/60, O2 saturation is 100%. Urine output is adequate. He is on a GI soft diet. Trocar site seems to be intact and healing well. cc: Luz Newby MD
--- NOTE | 2019-09-11 15:19 | PROGRESS NOTE ---
DATE: 09/11/2019 OBJECTIVE: Vital signs: Blood pressure is 108/60, heart rate of 72, respiratory rate of 18, 100% saturation on room air. Temperature 97.6 degrees. Cardiovascular: Regular rate and rhythm. Pulmonary: Bilateral breath sounds clear to auscultation. Gastrointestinal: Soft, nontender, nondistended. Bowel sounds are positive. LABORATORY DATA: White count 9, hemoglobin and hematocrit 8 and 26, platelets 376,000. BUN and creatinine 86 and 3.7, glucose of 226. PROBLEM LIST: 1. Hemoperitoneum due to anticoagulants after a laparoscopic cholecystectomy. That has corrected and seems better. Hemoglobin and hematocrit is stable. He has gotten 2 units of blood. 2. Coagulopathy. We have held all his anticoagulants. He is on Eliquis for atrial fibrillation, so I think it can be held for a little while. We will discuss with Cardiology about when it can be resumed. Holding aspirin. 3. Potential gastrointestinal bleed. He had some melena, heme-positive stools. Endoscopy just showed polyps but no active bleeding. 4. Atrial fibrillation is stable on amiodarone. 5. Hypothyroidism is still not controlled. His TSH is 68. I am going to repeat it with a free T4 tomorrow. May need to adjust his medications. DISPOSITION: I think he is stable for the floor postop and we will see how he does. cc: Erich Carl MD
[2019-09-11] MEDS: DULCOLAX PR SCH (15:47)
[2019-09-11] MEDS: CORDARONE PO SCH (22:43)
[2019-09-11] MEDS: SYNTHROID PO SCH (22:43)
[2019-09-11] MEDS: PEPCID PO SCH (22:43)
[2019-09-11] MEDS: PATIENT'S OWN MED PO SCH (22:46)
[2019-09-12] MEDS: NS 1,000 ML IV SCH ×2 (03:06→18:56)
[2019-09-12] MEDS: PRILOSEC PO SCH (06:10)
[2019-09-12] MEDS: APRESOLINE PO SCH ×3 (06:10→20:38)
[2019-09-12] MEDS: HUMULIN R SUBQ SCH ×4 (06:54→20:39)
[2019-09-12 07:34] LABS: CALCIUM 8.2 mg/dL (8.8-10.2); CREATININE 3.6 mg/dL (0.7-1.2); POTASSIUM 4.3 mmol/L (3.5-5.1)
[2019-09-12 07:37] LABS: BASO# 0.01 X1000 (0.0-0.2); BASO% 0.1 % (0.0-0.8); EOS# 0.02 X1000 (0.0-0.7); EOS% 0.2 % (0.0-10.0); HEMATOCRIT 27.3 % (42.0-52.0); HEMOGLOBIN 8.8 g/dL (14.0-18.0); IMM GRAN# 0.19 X1000 (0.0-0.04); IMM GRAN% 1.5 % (0.0-0.5); LYMPH# 0.74 X1000 (1.2-3.4); MCH 27.6 PG (27-31); MCHC 32.2 g/dL (33-37); MCV 85.6 FL (81-99); MONO# 1.03 X1000 (0.11-0.59); MONO% 8.3 % (1.7-9.3); MPV 9.4 FL (7.4-10.4); NEUT# 10.43 X1000 (1.4-6.5); NEUT% 83.9 % (42.2-75.2); PLT 490 X1000 (130-400); RBC 3.19 XMIL (4.7-6.1); RDW 15.2 % (11.5-14.5); WBC 12.42 X1000 (4.8-10.8)
[2019-09-12] MEDS: COREG PO SCH ×2 (10:16→20:38)
[2019-09-12] MEDS: DULCOLAX PR SCH (10:17)
--- NOTE | 2019-09-12 11:04 | PROGRESS NOTE ---
DATE: 09/12/2019 SUBJECTIVE: Mr. Marx is a 63-year-old black male, status post laparoscopic cholecystectomy per Dr. Bee, with complications of bleeding after surgery. He was on anticoagulation. His anticoagulation has been stopped. His hematocrit has been stable. He is on a GI soft diet which he is tolerating. OBJECTIVE: His heart rate is 82, blood pressure 112/54, O2 saturation 95%. He is afebrile. LABORATORY DATA: His white blood cell count is 12.4, hematocrit is 27% and stable. Electrolytes show a BUN of 78 and a creatinine of 3.6. PLAN: Continue supportive care. Dr. Bee returns tomorrow. cc: Luz Newby MD
[2019-09-12] MEDS: DILAUDID IV PRN (11:18)
--- NOTE | 2019-09-12 18:01 | PROGRESS NOTE ---
DATE: 09/12/2019 SUBJECTIVE: He looks a little better today. Pain is still present. OBJECTIVE: Vitals: Blood pressure 128/57, heart rate of 81, respiratory rate of 17. Temperature is 97.9 degrees, 96% on room air. Cardiovascular: Regular rate and rhythm. Pulmonary: Bilateral breath sounds, clear to auscultation. GI: Soft, nontender, nondistended. Bowel sounds are positive. LABORATORY DATA: White count 12, hemoglobin and hematocrit 8 and 27, platelets 490,000. BUN and creatinine of 78 and 3.6. PROBLEM LIST: 1. Hemoperitoneum after laparoscopic cholecystectomy. Seems to be doing better. He has gotten 2 units of blood. 2. Coagulopathy. He is off Eliquis and aspirin. We will discuss with Dr. Orlando tomorrow about when he would like them resumed or can we hold them for a week or two. 3. Gastrointestinal bleed. EGD has been accomplished. No gross bleeding. Hemoglobin and hematocrit are stable. 4. Atrial fibrillation. He is rate controlled on amiodarone. 5. Hypothyroidism is not controlled. His TSH is 68 now. He is also on amiodarone which may be affecting his thyroid function. I guess we will discuss with Dr. Orlando about that. 6. Disposition. He is on the floor and home per surgical recommendations. cc: Erich Carl MD [facility]ERKaila
[2019-09-12] MEDS: PEPCID PO SCH (20:38)
[2019-09-12] MEDS: CORDARONE PO SCH (20:38)
[2019-09-12] MEDS: SYNTHROID PO SCH (20:38)
[2019-09-12] MEDS: PATIENT'S OWN MED PO SCH (20:39)
[2019-09-13] MEDS: NS 1,000 ML IV SCH ×4 (04:51→23:03)
[2019-09-13] MEDS: APRESOLINE PO SCH ×3 (04:51→23:00)
[2019-09-13] MEDS: PRILOSEC PO SCH (06:02)
[2019-09-13] MEDS: HUMULIN R SUBQ SCH ×4 (06:42→22:59)
[2019-09-13 08:05] LABS: BASO# 0.01 X1000 (0.0-0.2); BASO% 0.1 % (0.0-0.8); EOS# 0.03 X1000 (0.0-0.7); EOS% 0.3 % (0.0-10.0); HEMATOCRIT 24.6 % (42.0-52.0); HEMOGLOBIN 7.9 g/dL (14.0-18.0); IMM GRAN# 0.17 X1000 (0.0-0.04); IMM GRAN% 1.4 % (0.0-0.5); LYMPH# 0.73 X1000 (1.2-3.4); LYMPH% 6.1 % (20.5-51.1); MCH 27.4 PG (27-31); MCHC 32.1 g/dL (33-37); MCV 85.4 FL (81-99); MONO# 1.14 X1000 (0.11-0.59); MONO% 9.6 % (1.7-9.3); MPV 9.2 FL (7.4-10.4); NEUT# 9.82 X1000 (1.4-6.5); NEUT% 82.5 % (42.2-75.2); PLT 484 X1000 (130-400); RBC 2.88 XMIL (4.7-6.1); RDW 15.1 % (11.5-14.5)
[2019-09-13 08:33] LABS: CALCIUM 8.5 mg/dL (8.8-10.2); CREATININE 3.7 mg/dL (0.7-1.2); MAGNESIUM 2.1 mg/dL (1.5-2.7)
[2019-09-13] MEDS: ROCALTROL PO SCH (08:49)
[2019-09-13] MEDS: ZAROXOLYN PO SCH (08:49)
[2019-09-13] MEDS: COREG PO SCH ×2 (08:49→22:59)
[2019-09-13] MEDS: DULCOLAX PR SCH (08:50)
--- NOTE | 2019-09-13 09:46 | GENERAL SURGERY PROGRESS NOTE ---
DATE: 09/13/2019 SUBJECTIVE: Mr. Marx is now 4 days after he was readmitted for intra-abdominal bleeding. He also had evidence of acute kidney injury. He remains afebrile with satisfactory hemodynamics. Heart rate 80, blood pressure 122/51. His abdomen is soft and nontender. His hemoglobin today is 7.9, hematocrit 24.6. His BUN is down to 73, creatinine is stable at 3.7. He is taking p.o. His bowels have moved. He is passing flatus. PLAN: Continued observation with hopefully complete resolution of his acute kidney injury. I do not think we should restart his anticoagulation as of yet. We will continue to monitor his hemoglobin. cc: Lebron Bee MD
--- NOTE | 2019-09-13 14:21 | GASTROENTEROLOGY PROGRESS NOTE ---
DATE: 09/13/2019 SUBJECTIVE: Patient was awake and alert. He was sitting up in a chair at the time of my visit. His family member was at the bedside. He had just gotten a bath. He had a bowel movement. Patient states he is slowly improving. He had an EGD on 09/10/2019. Findings showed reflux esophagitis in the distal esophagus, two 12 mm polyps in the gastric body with polypectomies performed. Biopsies are currently pending. Hemoglobin and hematocrit today is 7.9, 24.6. OBJECTIVE: Vital Signs: Temperature 97.9 degrees, pulse 79, respirations 18, blood pressure 105/53. General: Patient is awake and alert. He is a little winded after getting up and getting a bath. He is in a chair. Otherwise, he is in no acute distress. LABORATORY: Hematology: WBC 11.90, hemoglobin 7.9, hematocrit 24.6, MCV 85.4, platelets 484,000. Chemistry: Sodium 136, potassium 4.0, chloride 99, CO2 24, BUN 73, creatinine 3.7, glucose 251, calcium 8.5, magnesium 2.1, iron 29 on 09/09/2019. ASSESSMENT AND PLAN: 1. Status post laparoscopic cholecystectomy. 2. Hemoperitoneum status post surgery. He currently off Eliquis and aspirin. 3. Gastrointestinal bleed with esophagogastroduodenoscopy showing no evidence of active gastrointestinal bleeding. Two stomach polyps were removed and we are waiting on biopsy results. 4. Atrial fibrillation. Continue current medications. We will continue to follow with the patient while in the hospital and further plans to be made according to his progress. We will follow up on biopsy results. I have discussed this case with Dr. Arthur. Dictated by CECELIA Serrato for Benjamín Arthur MD cc: CECELIA Pat MD
--- NOTE | 2019-09-13 15:48 | CARDIOLOGY CONSULTATION ---
DATE: 09/13/2019 REASON FOR CONSULTATION: Cardiology was consulted for amiodarone related increasing TSH, paroxysmal atrial fibrillation, anemia, admitted with GI bleed and underwent laparoscopic cholecystectomy developed hemoperitoneum. 63-year-old gentleman who recently underwent a laparoscopic cholecystectomy with Dr. Bee 09/02, has been on Eliquis for paroxysmal atrial fibrillation. Had bioprosthetic mitral valve replacement as well. He started this back , patient has had abdominal pain since surgery. His CT scan showed adjacent hematoma formation adjacent to gallbladder with free blood in the pelvis and fluid at the right subphrenic place and his anticoagulation has been held. REVIEW OF SYSTEM: A 14 point review of systems was done. The patient complains of discomfort in his abdomen, no chest pain. There is no palpitations. There is no worsening shortness of breath. Genitourinary: There is no dysuria or hematuria. Respiratory: There is no history of cough, expectoration, hemoptysis. There is no history of fevers or chills. PAST MEDICAL HISTORY: 1. Paroxysmal atrial fibrillation. Non ST elevation myocardial infarction 03/09/2018. 2. Severe mitral regurgitation 02/01/2015, mitral valve replacement with 29 mm Patty- Estrada valve. 3. Nonischemic cardiomyopathy. 4. AICD placement. 5. Paroxysmal atrial fibrillation. Cardioversion 09/13/2014. 6. Anticoagulation therapy. 7. Chronic kidney disease. 8. Hypothyroidism. 9. CA prostate is status post prostatectomy 01/30/2013. 10. Last cardiac catheterization 03/09/2018, left main minor irregularities, LAD minor irregularities, diagonal patent stent with no stent in-stent stenosis. Circumflex luminal irregularities. Medical management recommended. 11. There is history of CVA. His other surgeries include laparoscopic cholecystectomy, spinal surgery, rotator cuff repair, thyroidectomy, mitral valve bovine replacement. HOME MEDICATIONS: Allopurinol 300, amiodarone 200, Eliquis 5 b.i.d., enteric- coated aspirin 81 mg a day, Coreg 12.5 mg p.o. b.i.d., Bydureon, famotidine, Apresoline 10 mg t.i.d., levothyroxine 50, patient takes metolazone as needed. PHYSICAL EXAMINATION: Blood pressure was 105/53. First and second heart sounds were heard. There was no S3 gallop. Respiratory: Normal air entry. No crepitations. Abdomen: Tender, bowel sounds heard. Central nervous system: Alert and was moving all 4 extremities. Examination of extremities revealed no pedal edema. HEENT: Atraumatic, normocephalic. Pupils were equal and reacting to light. LAB: WBC 11.9, hemoglobin 7.9 hematocrit 24.6, platelet count of 484,000. Laboratory examination BMP 136, potassium 4.0, BUN 73, creatinine 3.7. TSH was 68. ASSESSMENT AND PLAN: 1. Mr. Isaias Marx is a 63-year-old black gentleman with history of automated implantable cardioverter defibrillator placement status post mitral valve replacement with Patty- Estrada pericardial valve, history of heart failure, automated implantable cardioverter defibrillator placement, anticoagulation therapy, paroxysmal atrial fibrillation, thyroidectomy, hypothyroidism is admitted with laparoscopic cholecystectomy following which he developed abdominal hematoma, underwent an upper gastrointestinal endoscopy. He also has chronic renal insufficiency. This is likely to be acute. From a cardiac standpoint as far as his severe TSH elevation is concerned, he has also had thyroidectomy and is on thyroid supplements. He is on amiodarone currently in sinus rhythm. We will discontinue the amiodarone as it is likely to be the cause of worsening in his thyroid profile. 2. We will switch him off amiodarone to Multaq 200 mg p.o. b.i.d. when he can take p.o. medications. 3. As far as anticoagulation therapy is concerned, we will hold all anticoagulation therapy and I will see him back in the office, restart anticoagulation therapy when appropriate from all consultants. 4. He had an upper GI endoscopy. There is no bleeding in the gastrointestinal tract internally. 5. Hypo thyroxine. He is on levothyroxine, would recommend increasing the dosage of levothyroxine at the present time. 6. For left ventricular dysfunction he is on Coreg 12.5 mg p.o. b.i.d. Would recommend continuing with that. 7. He has chronic renal insufficiency. Will follow renal profiles as well. He has been taking metolazone 2.5 mg Friday, Friday and Friday. For the present I will hold that. Thank you for the consult. Will follow hospital course. cc: MD ALBA Vazquez
--- NOTE | 2019-09-13 18:49 | PROGRESS NOTE ---
DATE: 09/13/2019 SUBJECTIVE: Patient has no major complaints. He seems to be better, but he is still reporting a lot of dark stools. His hemoglobin and hematocrit though have dropped again, 8.8 to 7.9, and hematocrit is down from 27 to 24. Creatinine is up to 3.4. PROBLEM LIST: 1. Hemoperitoneum after laparoscopic cholecystectomy. Seems to be doing okay. 2. Coagulopathy. He is off Eliquis and aspirin. We are going to continue to monitor. Dr. Orlando says he is going to resume it when he follows up with him, so we are just holding everything for now. 3. Potential gastrointestinal bleed. He is still reporting melena. Hemoglobin and hematocrit have dropped a bit. I am going to check it again. 4. Atrial fibrillation. He has been changed to Multaq. If he is status post thyroidectomy, I am not sure if the amiodarone really can cause thyroid issues if he does not have a thyroid. 5. Hypothyroidism though. His TSH is still high and we have adjusted the Synthroid. DISCHARGE CONDITION: Pending multiple issues resolution. cc: Erich Carl MD
[2019-09-13] MEDS: TYLENOL PO PRN (18:53)
[2019-09-13 19:54] LABS: HEMATOCRIT 27.9 % (42.0-52.0)
[2019-09-13] MEDS ORDERED: SYNTHROID PO SCH (21:00)
[2019-09-13] MEDS: PATIENT'S OWN MED PO SCH (22:57)
[2019-09-13] MEDS: MULTAQ PO SCH (22:59)
[2019-09-13] MEDS: PEPCID PO SCH (23:00)
[2019-09-13] MEDS: SYNTHROID PO SCH (23:17)
[2019-09-14] MEDS: PRILOSEC PO SCH (06:07)
[2019-09-14] MEDS: APRESOLINE PO SCH ×4 (06:07→22:48)
[2019-09-14] MEDS: HUMULIN R SUBQ SCH ×4 (06:56→22:51)
[2019-09-14 08:50] LABS: BASO# 0.01 X1000 (0.0-0.2); BASO% 0.1 % (0.0-0.8); EOS# 0.02 X1000 (0.0-0.7); EOS% 0.1 % (0.0-10.0); HEMATOCRIT 27.1 % (42.0-52.0); HEMOGLOBIN 8.7 g/dL (14.0-18.0); IMM GRAN# 0.16 X1000 (0.0-0.04); LYMPH# 1.26 X1000 (1.2-3.4); LYMPH% 8.1 % (20.5-51.1); MCH 27.4 PG (27-31); MCHC 32.1 g/dL (33-37); MCV 85.2 FL (81-99); MONO# 0.71 X1000 (0.11-0.59); MONO% 4.6 % (1.7-9.3); MPV 8.8 FL (7.4-10.4); NEUT# 13.36 X1000 (1.4-6.5); NEUT% 86.1 % (42.2-75.2); PLT 510 X1000 (130-400); RBC 3.18 XMIL (4.7-6.1); RDW 15.2 % (11.5-14.5); WBC 15.52 X1000 (4.8-10.8)
[2019-09-14 09:07] LABS: CALCIUM 9.1 mg/dL (8.8-10.2); CREATININE 2.9 mg/dL (0.7-1.2)
[2019-09-14] MEDS: MULTAQ PO SCH ×2 (09:10→22:48)
[2019-09-14] MEDS: DULCOLAX PR SCH (09:10)
[2019-09-14] MEDS: COREG PO SCH ×2 (09:10→22:48)
[2019-09-14 09:14] LABS: ANISOCYTOSIS 1+; LYMPHS 8 % (21-51); MICROCYTOSIS 1+; MONO 5 % (1-9); POIKILOCYTOSIS 1+; SEGS 87 % (42-75)
[2019-09-14] MEDS: NS 1,000 ML IV SCH ×2 (12:17→17:12)
--- NOTE | 2019-09-14 12:30 | Diag Imaging Result Doc PS360 ---
EXAM: CHEST-2 VIEWS HISTORY: leukocytosis TECHNIQUE: Two views COMPARISON: 08/14/2019 FINDINGS: The lungs are well expanded. The heart is not enlarged. A heart valve has been replaced. There is a left-sided pacemaker. The vessels are not distended. There are no infiltrates. No pleural effusions. IMPRESSION: No pneumonia Electronically signed by Laz Caldwell 09/14/2019 12:27 PM
--- NOTE | 2019-09-14 14:59 | GASTROENTEROLOGY PROGRESS NOTE ---
DATE: 09/14/2019 SUBJECTIVE: The patient was awake and alert. He was sitting up in his chair. His brother and nephew were in the room. They were shaving him at the time of my visit. The patient does still report some abdominal pain. No evidence of active GI bleeding. The patient had an EGD on 09/10/2019, findings showing reflux esophagitis in the distal esophagus and two 12 mm polyps in the gastric body with polypectomy performed. Pathology is consistent with hyperplastic polyps. PHYSICAL EXAMINATION: Vital Signs: Temperature 98.1 degrees, pulse 79, respirations 18, blood pressure 110/67. General: Patient is awake and alert, sitting up in a chair, being shaven by his brother. LABORATORY: Hematology; WBC 15.52, hemoglobin 8.7, hematocrit 27.1, MCV 85.2, platelets 510,000. Chemistry; sodium 135, potassium 4.0, chloride 21, BUN 60, creatinine 2.9, glucose 169. ASSESSMENT AND PLAN: 1. Status post laparoscopic cholecystectomy. 2. Hemoperitoneum status post surgery. 3. Gastrointestinal bleeding with esophagogastroduodenoscopy showing evidence of esophagitis and polyps in the stomach. Biopsy is showing hyperplastic polyps. 4. Atrial fibrillation. Continue current medications. PLAN: Continue current management. EGD showed gastric polyps without evidence of bleeding. Polypectomies were performed. Biopsy showing hyperplastic polyps. Would recommend repeating EGD in 1 year. GI will sign off for now. Recommend follow up in the office. I have discussed this case with Dr. Arthur. Dictated by CECELIA Serrato for Benjamín Arthur MD cc: CECELIA Pat MD [facility]
--- NOTE | 2019-09-14 18:15 | GENERAL SURGERY PROGRESS NOTE ---
DATE: 09/14/2019 SUBJECTIVE: Mr. Marx is sitting up. He is eating some. His bowels are moving and he says they are dark. OBJECTIVE: Vital Signs: He is afebrile. Heart rate 79, blood pressure 110/67. LABS: His hematocrit has been stable at 27 over the past three days. His BUN has fallen down to 60, creatinine is down to 2.9. ASSESSMENT: He continues to improve, seems that his hemoglobin and hematocrit is stable. We will continue to monitor his stools. cc: Lebron Bee MD
--- NOTE | 2019-09-14 19:13 | PROGRESS NOTE ---
DATE: 09/14/2019 SUBJECTIVE: Patient has no major complaints. OBJECTIVE: Vital Signs: Blood pressure is 117/74, heart rate of 78, respiratory rate of 16, temperature 97.4 degrees, 100% on room air. Cardiovascular: Regular rate and rhythm. Pulmonary: Bilateral breath sounds diminished at bases. GI: Soft, nontender, nondistended. Bowel sounds were positive. LABORATORY: White count 15, hemoglobin 8 and hematocrit 27, platelets 510,000. Sodium 135, BUN 60 and creatinine 2.9. PROBLEM LIST: 1. Hemoperitoneum after laparoscopic cholecystectomy. Hemoglobin and hematocrit are stable. He is doing okay. 2. Coagulopathy related to Eliquis and aspirin which she uses for atrial fibrillation. Dr. Orlando will follow up with him and resume as an outpatient. 3. Gastrointestinal bleed. He still reports dark stools, but hemoglobin and hematocrit really have not budged. 4. Leukocytosis. Not really sure why his white count is rising. Clinically, he looks okay. He has no evidence of bleeding. We will continue to follow. GI has signed off, but he did report melena. I am not sure. We will see how he does. His hemoglobin and hematocrit are stable. cc: Erich Carl MD
[2019-09-14 21:17] LABS: URINE SOURCE CLEAN CATCH
[2019-09-14 21:26] LABS: BILIRUBIN URINE NEGATIVE (NEGATIVE); BLOOD URINE NEGATIVE (NEGATIVE); COLOR YELLOW; GLUCOSE URINE NEGATIVE (NEGATIVE); KETONE URINE NEGATIVE (NEGATIVE); LEUKOCYTES URINE NEGATIVE (NEGATIVE); NITRITE URINE NEGATIVE (NEGATIVE); PROTEIN URINE TRACE mg/dL (NEGATIVE); SP GRAVITY URINE 1.013; TURBIDITY URINE CLEAR (CLEAR); UROBILINOGEN URINE NORMAL (NORMAL)
[2019-09-14 21:27] LABS: UR EPITHELIAL CELLS <10 /HPF (<10); URINE BACTERIA NEGATIVE /HPF; URINE RBC <10 /HPF (<10); URINE WBC <10 /HPF (<10)
[2019-09-14] MEDS: SYNTHROID PO SCH (22:48)
[2019-09-14] MEDS: PEPCID PO SCH (22:48)
[2019-09-14] MEDS: PATIENT'S OWN MED PO SCH (22:51)
[2019-09-15] MEDS: PRILOSEC PO SCH (06:14)
[2019-09-15] MEDS: APRESOLINE PO SCH ×3 (06:14→21:09)
[2019-09-15] MEDS: HUMULIN R SUBQ SCH ×4 (07:02→21:11)
[2019-09-15 07:22] LABS: EOS# 0.03 X1000 (0.0-0.7); EOS% 0.2 % (0.0-10.0); HEMATOCRIT 24.1 % (42.0-52.0); HEMOGLOBIN 7.7 g/dL (14.0-18.0); IMM GRAN% 0.8 % (0.0-0.5); LYMPH# 1.46 X1000 (1.2-3.4); LYMPH% 11.3 % (20.5-51.1); MCH 27.2 PG (27-31); MCV 85.2 FL (81-99); MONO# 0.74 X1000 (0.11-0.59); MONO% 5.7 % (1.7-9.3); MPV 8.8 FL (7.4-10.4); NEUT# 10.63 X1000 (1.4-6.5); PLT 490 X1000 (130-400); RBC 2.83 XMIL (4.7-6.1); RDW 14.9 % (11.5-14.5); WBC 12.96 X1000 (4.8-10.8)
[2019-09-15] MEDS: NS 1,000 ML IV SCH ×2 (07:31→21:08)
--- NOTE | 2019-09-15 08:38 | GENERAL SURGERY PROGRESS NOTE ---
DATE: 09/15/2019 Mr. Marx feels about the same. Still has some right-sided abdominal pain. His hemoglobin today is 7.7, hematocrit 24.1. I will go ahead and get a CT scan of the abdomen with p.o. contrast only. cc: Lebron Bee MD
[2019-09-15] MEDS: DULCOLAX PR SCH (10:21)
[2019-09-15] MEDS: COREG PO SCH ×2 (10:22→21:09)
[2019-09-15] MEDS: MULTAQ PO SCH ×2 (10:22→21:09)
[2019-09-15] MEDS: ZAROXOLYN PO SCH (10:23)
[2019-09-15] MEDS: ROCALTROL PO SCH (10:23)
[2019-09-15] MEDS: ZOFRAN IV PRN (12:08)
[2019-09-15 13:22] LABS: HEMATOCRIT 25.5 % (42.0-52.0); HEMOGLOBIN 8.1 g/dL (14.0-18.0)
[2019-09-15] MEDS: DILAUDID IV PRN (13:32)
--- NOTE | 2019-09-15 15:05 | Diag Imaging Result Doc PS360 ---
EXAM: CT ABD/PELVIS W/ORAL CONT ONLY INDICATION: intra abdominal hematoma TECHNIQUE: This exam was performed using automated exposure control, adjustment of mA or kV according to patient size, and/or use of iterative reconstruction technique. COMPARISON: 09/08/2019 FINDINGS: There is minimal subsegmental atelectasis at the lung bases. There has been a prior cholecystectomy. The prominent hematoma adjacent to the gallbladder fossa seen on the previous study is again identified. It measures only slightly larger than the previous study at 14.6 x 9.7 cm (12.5 x 1.0 cm previously, remeasured). The small difference may be due to differences in slice registration. Three blood layering in the pelvis is again identified. However, the volume appears to have decreased somewhat during the interval. The liver, spleen, pancreas, adrenal glands, kidneys, and urinary bladder are essentially unremarkable and stable. There has been interval development of diffuse colonic and rectal wall thickening although some of this could be due to underdistention, it is suspicious for colitis/proctitis. Please correlate clinically. There is no evidence of bowel obstruction. The remainder of the GI tract is essentially unremarkable. IMPRESSION: 1.Persistent hematoma adjacent to the gallbladder fossa that has increased markedly in size during the interval. However, there appears to be a decrease in the volume of free blood in the pelvis. 2.Interval development of rectal and colonic wall diffuse thickening. Consider colitis. Electronically signed by William Leach 09/15/2019 3:03 PM
--- NOTE | 2019-09-15 19:44 | GENERAL SURGERY PROGRESS NOTE ---
DATE: 09/15/[address] showed increase in size of the hematoma in the abdomen, so we will plan a laparoscopy tomorrow to evacuate the hematoma. I have discussed this with him. He understands and agrees to proceed. cc: Lebron Bee MD
--- NOTE | 2019-09-15 20:40 | PROGRESS NOTE ---
DATE: 09/15/2019 SUBJECTIVE: The patient has no major complaints. OBJECTIVE: Blood pressure is 144/62, heart rate of 84, respiratory rate 18, temperature 98.3 degrees 100% on 3 L.Cardiovascular: Regular rate and rhythm. Pulmonary: Bilateral breath sounds clear to auscultation. GI: Was soft, nontender, nondistended. Bowel sounds are positive. Extremity: No clubbing or cyanosis. Lymphatic: No peripheral edema. Neurological: Nonfocal. LABORATORY DATA: was stable. CONSULTATIONS: White count is 12, hemoglobin 8 and hematocrit 25, platelets of 490,000. Sugar 219. PROBLEM LIST: 1. Hemoperitoneum after laparoscopic cholecystectomy. Hemoglobin and hematocrit is stable, but it has slowly drifted downwards. Dr. Bee has repeated and it went down to 7 and [address] scan which showed worsening hematoma, which had increased in size. It has gone from 12 x 1 to 14 x 10 almost, so I think his plan is to go in tomorrow and I guess evacuate the bleeding and there was also concern over colitis, although he technically does not have any diarrhea at this point. 2. Coagulopathy that has since resolved. 3. Gastrointestinal bleed. He still reports dark stools, but overall they are kind of lightening up so we will continue to monitor. In any case, plan will be to evacuate tomorrow and then go from there. cc: Erich Carl MD
[2019-09-15] MEDS: ZOSYN 3.375 GM in NS 50 ML IV SCH (21:08)
[2019-09-15] MEDS: PEPCID PO SCH (21:09)
[2019-09-15] MEDS: PATIENT'S OWN MED PO SCH (21:09)
[2019-09-15] MEDS: SYNTHROID PO SCH (21:09)
[2019-09-16] MEDS: ZOSYN 3.375 GM in NS 50 ML IV SCH ×4 (02:30→20:28)
[2019-09-16] MEDS: PRILOSEC PO SCH ×2 (05:14→07:28)
[2019-09-16] MEDS: APRESOLINE PO SCH ×3 (05:14→20:29)
[2019-09-16] MEDS: HUMULIN R SUBQ SCH ×3 (07:28→16:22)
[2019-09-16 08:01] LABS: BASO# 0.01 X1000 (0.0-0.2); BASO% 0.1 % (0.0-0.8); EOS# 0.04 X1000 (0.0-0.7); EOS% 0.3 % (0.0-10.0); HEMATOCRIT 24.7 % (42.0-52.0); HEMOGLOBIN 7.8 g/dL (14.0-18.0); IMM GRAN# 0.08 X1000 (0.0-0.04); IMM GRAN% 0.6 % (0.0-0.5); LYMPH# 0.42 X1000 (1.2-3.4); LYMPH% 3.2 % (20.5-51.1); MCH 26.9 PG (27-31); MCHC 31.6 g/dL (33-37); MCV 85.2 FL (81-99); MONO# 1.52 X1000 (0.11-0.59); MONO% 11.6 % (1.7-9.3); NEUT# 11.03 X1000 (1.4-6.5); NEUT% 84.2 % (42.2-75.2); PLT 497 X1000 (130-400); RDW 15.3 % (11.5-14.5)
[2019-09-16 08:25] LABS: CALCIUM 8.7 mg/dL (8.8-10.2); CREATININE 2.5 mg/dL (0.7-1.2); POTASSIUM 3.7 mmol/L (3.5-5.1)
[2019-09-16] MEDS: DULCOLAX PR SCH (09:02)
[2019-09-16] MEDS: MULTAQ PO SCH ×2 (09:03→20:29)
[2019-09-16] MEDS: COREG PO SCH ×2 (09:03→20:29)
[2019-09-16] MEDS: ZOFRAN IV PRN ×2 (09:48→23:36)
[2019-09-16] MEDS ORDERED: DIPRIVAN 1% ONE (12:27)
[2019-09-16] MEDS ORDERED: VERSED ONE (12:27)
[2019-09-16] MEDS ORDERED: FENTANYL ONE (12:27)
[2019-09-16] MEDS ORDERED: DECADRON ONE (12:28)
[2019-09-16] MEDS ORDERED: ZOFRAN ONE (12:28)
[2019-09-16] MEDS ORDERED: XYLOCAINE-MPF 2% ONE (12:28)
[2019-09-16] MEDS ORDERED: QUELICIN (DOSE) ONE (12:28)
[2019-09-16] MEDS ORDERED: SENSORCAINE-MPF 0.5%/EPI 1:200,000 ONE (13:02)
[2019-09-16] MEDS ORDERED: LR 1,000 ML ONE (13:02)
--- NOTE | 2019-09-16 13:11 | PROGRESS NOTE ---
DATE: 09/16/2019 SUBJECTIVE: The patient has no major complaints. He is kind of calm, I think a little tense prior to surgery. This will be his second surgery. OBJECTIVE: Vital Signs: Blood pressure is 129/62, heart rate of 81, respiratory rate of 16, temperature 98.7 degrees, satting 96% on room air. Cardiovascular: Regular rate and rhythm. Pulmonary: Bilateral breath sounds. Clear to auscultation. GI: Soft, nontender, nondistended. Bowel sounds are positive. LABORATORY DATA: White count 13, hemoglobin and hematocrit 7 and 24, platelets 497. Basic was normal. Creatinine 2.5. PROBLEM LIST: 1. Hemoperitoneum after lap zaina with his hemoglobin and hematocrit still continuing to trend downwards. Repeat CT showed an expanding hematoma, so Dr. Bee is going to go in today and evacuate hematoma, and we will continue to monitor. 2. Coagulopathy. We have stopped all his antiplatelet and anticoagulants, resume at a later date once his bleeding has been controlled. 3. Possible gastrointestinal bleed. He reports melena. CT shows proctitis and colon inflammation. I would like GI to re-evaluate, see if he needs anything else at this point. I have empirically put him on antibiotics. He is having normal bowel movements though, so I am not quite sure what this is potentially an issue for or if it is anything we need to worry about. He does have a little bit of leukocytosis, but he is not having diarrhea, so we will continue to monitor and see if he needs anything else. Briefly this is a 63-year-old male who had a lap zaina. He has atrial fibrillation. He has a prosthetic valve, so he is anticoagulated for atrial fibrillation, who had a laparoscopic cholecystectomy and developed hemoperitoneum afterwards. He was initially monitored. He reported melena, so we engaged GI to do endoscopy. They found several polyps, but no active bleeding. He has had a slow drift of his hemoglobin and hematocrit down. Repeat CT again showed the enlarged hematoma, which is going to be evacuated today per surgery. GI may still need to re-evaluate this melena if he has persistent melena and persistent drop in his hemoglobin and hematocrit. He may need an endoscopy from below at their discretion. cc: Erich Carl MD
--- NOTE | 2019-09-16 14:55 | OPERATIVE NOTE ---
PROCEDURE DATE: 09/16/2019 PROCEDURE: Laparoscopy with evacuation of intraabdominal hematoma. SURGEON: Lebron Bee MD. ASSISTANTS: Zina and Lissa. PREOPERATIVE DIAGNOSIS: Intraabdominal hematoma. POSTOPERATIVE DIAGNOSIS: Intraabdominal hematoma with ruptured subcapsular hematoma of the liver. INDICATIONS: This is a 63-year-old who is about 3 weeks after a laparoscopic cholecystectomy was admitted about a week ago with evidence of a hematoma on CT scan and anemia. His anticoagulants were stopped. CT yesterday showed some increase in size of the hematoma compared to his admission CT. DESCRIPTION OF PROCEDURE: Satisfactory general endotracheal anesthesia achieved. Abdomen is prepped and draped in a sterile fashion. We anesthetized the skin below in the subumbilical incision. We incised that old incision, carried our incision into the abdominal cavity, used 11 trocar to enter the abdominal cavity. We insufflated through this trocar under direct visualization and used 11 trocar in the midepigastrium in the area of the previous trocar. We then placed a 5 trocar in the right mid abdomen. We the capsule of the liver from the omentum, and then realized that there was a subcapsular hematoma that had bled. We then in fact did find the parenchyma of the right lobe posterior to this. We the omentum from the anterior and lateral abdominal wall. We entered the subhepatic space in the gallbladder fossa and then used an 11 mm cannula to suck out the whole clot. We did the best we could to evacuate the old hematoma. There was no active ongoing bleeding noted. After we had suctioned all the unattached clot, we then irrigated with saline and then aspirated that. Again, there was no active bleeding. The clot that was attached we chose not to separate from the undersurface of the liver or the gallbladder fossa. There did not appear to be any significant blood toward the pelvis. It seemed to be limited to the subhepatic space in the gallbladder fossa. I decided to leave a Malcolm drain in the subhepatic space. We brought it out through the right anterior abdominal wall trocar site and placed it in the subhepatic space, secured to the skin with 2-0 silk. No other abnormalities were identified. We then flattened the patient, desufflated, removed our trocars. We closed the fascia of the epigastrium under direct visualization with a 2- 0 Polysorb fascial stitch. We closed the fascia at the subumbilical incision with 2-0 Polysorb fascial stitch x2. The skin was then closed with 4-0 Polysorb subcuticular stitches. Sterile OpSites were applied. He tolerated it well. Sent to the recovery room in satisfactory condition. cc: Lebron Bee MD
[2019-09-16 15:15] LABS: HEMATOCRIT 27.2 % (42.0-52.0); HEMOGLOBIN 8.8 g/dL (14.0-18.0); MCH 28.3 PG (27-31); MCHC 32.4 g/dL (33-37); MCV 87.5 FL (81-99); MPV 8.6 FL (7.4-10.4); RBC 3.11 XMIL (4.7-6.1); RDW 15.6 % (11.5-14.5); WBC 17.77 X1000 (4.8-10.8)
[2019-09-16 18:12] LABS: BASO# 0.01 X1000 (0.0-0.2); BASO% 0.1 % (0.0-0.8); EOS# 0.02 X1000 (0.0-0.7); EOS% 0.1 % (0.0-10.0); HEMATOCRIT 26.9 % (42.0-52.0); HEMOGLOBIN 8.7 g/dL (14.0-18.0); IMM GRAN# 0.07 X1000 (0.0-0.04); IMM GRAN% 0.5 % (0.0-0.5); LYMPH% 2.9 % (20.5-51.1); MCH 27.9 PG (27-31); MCHC 32.3 g/dL (33-37); MCV 86.2 FL (81-99); MONO# 1.39 X1000 (0.11-0.59); MONO% 10.2 % (1.7-9.3); MPV 8.9 FL (7.4-10.4); NEUT# 11.71 X1000 (1.4-6.5); NEUT% 86.2 % (42.2-75.2); PLT 460 X1000 (130-400); RBC 3.12 XMIL (4.7-6.1); RDW 15.6 % (11.5-14.5)
--- NOTE | 2019-09-16 18:17 | EKG Report ---
Test Performed on : 09/16/2019 5:23:05 PM Test Reason : Decrease LOC Blood Pressure : / mmHG Vent. Rate : 082 BPM Atrial Rate : 082 BPM P-R Int : 204 ms QRS Dur : 126 ms QT Int : 448 ms P-R-T Axes : 022 -15 047 degrees QTc Int : 523 ms Normal sinus rhythm. Nonspecific intraventricular block Inferior infarct , age undetermined Abnormal ECG When compared with ECG of 09-SEP-2019 05:47, No significant change was found Confirmed by Osman Sanders MD ([id number]) on 09/16/2019 8:29:57 PM
[2019-09-16 18:21] LABS: CALCIUM 8.4 mg/dL (8.8-10.2); CREATININE 2.7 mg/dL (0.7-1.2); POTASSIUM 4.2 mmol/L (3.5-5.1)
[2019-09-16 19:06] LABS: LYMPHS 3 % (21-51); MONO 8 % (1-9); SEGS 89 % (42-75)
--- NOTE | 2019-09-16 20:06 | Diag Imaging Result Doc PS360 ---
EXAM: CT HEAD W/O CONTRAST - 09/16/2019 HISTORY: Decrease LOC TECHNIQUE: CT head without contrast COMPARISON: 03/09/2018 FINDINGS: There are areas of encephalomalacia compatible with old infarcts at the left superior frontal lobe and right parietal lobe similar to prior. There is no indication of recent infarct, although acute infarcts may not be immediately visible. There is no evidence of intracranial hemorrhage, mass effect, midline shift, or hydrocephalus. There is no evidence of skull fracture. Visualized portions of paranasal sinuses and mastoid air cells appear clear except for slight mucosal thickening in the bilateral maxillary sinuses. IMPRESSION: Chronic ischemic changes similar to prior. No visible acute intracranial abnormality. No hemorrhage or mass effect. This exam was performed using automated exposure control, adjustment of mA or kV according to patient size, and/or use of iterative reconstruction technique. Electronically signed by Josue Can 09/16/2019 8:04 PM
[2019-09-16] MEDS: SYNTHROID PO SCH (20:29)
[2019-09-16] MEDS: PEPCID PO SCH (20:29)
[2019-09-16] MEDS: NS 1,000 ML IV SCH (21:12)
[2019-09-16] MEDS: PATIENT'S OWN MED PO SCH (21:13)
[2019-09-16] MEDS: DILAUDID IV PRN (23:37)
[2019-09-17] MEDS: HUMULIN R SUBQ SCH ×5 (00:33→20:45)
[2019-09-17] MEDS: NS 1,000 ML IV SCH (00:33)
[2019-09-17] MEDS: ZOSYN 3.375 GM in NS 50 ML IV SCH ×3 (02:00→13:18)
[2019-09-17] MEDS: APRESOLINE PO SCH ×4 (05:59→20:53)
[2019-09-17] MEDS: PRILOSEC PO SCH (05:59)
[2019-09-17] MEDS: ZOFRAN IV PRN ×3 (05:59→16:25)
[2019-09-17] MEDS: DILAUDID IV PRN (05:59)
[2019-09-17] MEDS: ROCALTROL PO SCH (09:01)
[2019-09-17] MEDS: ZAROXOLYN PO SCH (09:01)
[2019-09-17] MEDS: DULCOLAX PR SCH ×2 (09:02→09:04)
[2019-09-17] MEDS: MULTAQ PO SCH ×2 (09:02→20:53)
[2019-09-17] MEDS: COREG PO SCH ×2 (09:06→20:53)
[2019-09-17] MEDS ORDERED: SALINE LOCK IV FLUID XX ONE (11:18)
[2019-09-17 12:20] LABS: HEMATOCRIT 28.3 % (42.0-52.0)
--- NOTE | 2019-09-17 16:31 | GENERAL SURGERY PROGRESS NOTE ---
DATE: 09/17/2019 SUBJECTIVE: Mr. Marx is afebrile. Heart rate 87, blood pressure 135/65. His bowels did move yesterday. He has taken some by mouth today. He has had only old blood in his drain. His hemoglobin today is pending. We will check it again tomorrow as well. cc: Lebron Bee MD
--- NOTE | 2019-09-17 18:19 | PROGRESS NOTE ---
DATE: 09/17/2019 INTERVAL HISTORY: No acute events overnight. The patient yesterday underwent laparoscopy with evacuation of intra-abdominal hematoma. SUBJECTIVE: Patient has been eating by mouth. Has not had a bowel movement. Has not been passing gas. Has been having some burping. The patient's family is currently at bedside. Mr. Marx denies any chest pain or shortness of breath. VITALS: Temperature 97.4, pulse 83, respiratory rate 20, blood pressure 125/60, saturating 95% on 2 L nasal cannula. PHYSICAL EXAMINATION: General: Not in acute distress. He is sitting at the side of the bed. Lungs: Air entry bilaterally equal. No wheeze, rhonchi, or crackles. Cardiovascular: S1, S2 normal. Bioprosthetic heart sounds. No rub or gallop. Abdomen: Distended, soft. Hypoactive bowel sounds. There is a laparoscopy port wound. Mild generalized tenderness, tympanic to percussion. Extremities: Mild lower extremity edema extending up to midshin level. LABORATORY: Hemoglobin is 9. He does not have any BUN and creatinine data. Microbiology: No new data. Head CT performed yesterday for decreased consciousness had chronic ischemic changes. ASSESSMENT AND PLAN: 1. Acute blood loss anemia due to likely GI bleed as well as hemoperitoneum after laparoscopic cholecystectomy, status post esophagogastroduodenoscopy with gastric polyp removal and laparoscopic evacuation of intra-abdominal hematoma. I will continue his home iron/multivitamin tablet and trend hemoglobin. I will continue him on Pepcid and omeprazole. Appreciate gastroenterology and surgical team's recommendations. 2. Postoperative ileus/Small bowel obstruction: The patient c/o abdominal distention. Does not have active bowel sounds. I will monitor him for signs of postoperative ileus. I will also get abdominal films, flat and erect. I warned him and cautioned him about signs of bowel obstruction/ileus and to watch out for vomiting. 3. Suspected acute proctocolitis: Switch antibiotics to ceftriaxone and metronidazole. Follow up CBC tomorrow. 3. 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 I will continue his home carvedilol and dronedarone. We are holding his aspirin and Eliquis as per cardiology team's recommendation, and the plan is to resume them outpatient. 4. History of congestive heart failure with preserved ejection fraction, as well as chronic kidney disease stage 4. Continue home metolazone Friday, Friday, Friday, which is his home dosing, hydralazine and calcitriol. 5. History of hypothyroidism and goiter causing dysphagia, status post thyroidectomy. Continue levothyroxine and follow up TSH as needed. DISPOSITION: Monitor patient inside the hospital. Plan of care discussed with the patient and family members at bedside. Their questions were satisfactorily answered. cc: Simba Mcneil MD MTDD
--- NOTE | 2019-09-17 19:14 | Diag Imaging Result Doc PS360 ---
EXAM: ABDOMEN FLAT/UPRIGHT 09/17/2019 HISTORY: R/o SBO TECHNIQUE: Flat and upright abdomen portable COMMENT: There is some colonic and small bowel gas with dilatation of both the right colon and several small bowel loops on the left side of the abdomen. The stomach does not appear to be distended. There is no definite evidence of organomegaly or mass. The possibility of ascites cannot be excluded. Compared to 12/09/2012 the dilatation of the small bowel is worse. IMPRESSION: Ileus versus partial small bowel obstruction. Electronically signed by Howard Valenzuela 09/17/2019 7:12 PM
[2019-09-17] MEDS: SYNTHROID PO SCH (20:53)
[2019-09-17] MEDS: PEPCID PO SCH (20:53)
[2019-09-18] MEDS: PATIENT'S OWN MED PO SCH ×2 (02:14→20:42)
[2019-09-18] MEDS: ZOFRAN IV PRN ×2 (02:58→20:48)
[2019-09-18] MEDS: ROCEPHIN 1 GM in NS 50 ML IV SCH (05:14)
[2019-09-18] MEDS: APRESOLINE PO SCH ×3 (05:15→20:41)
[2019-09-18] MEDS: FLAGYL 500 MG/NS 500 MG/100 ML IVPB IV SCH ×4 (05:51→23:09)
[2019-09-18] MEDS: HUMULIN R SUBQ SCH ×4 (06:27→20:42)
[2019-09-18] MEDS: PRILOSEC PO SCH (06:28)
--- NOTE | 2019-09-18 07:19 | Diag Imaging Result Doc PS360 ---
EXAM: CHEST/ABD TUBE PLACEMENT 09/18/2019 HISTORY: NG Tube Placement for SBO TECHNIQUE: AP portable at 0351 COMMENT: There is an NG tube which passes below the diaphragm. There are distended small bowel loops with some gas-filled colonic loops visible in the upper abdomen. There is some air under the right hemidiaphragm. This may be due to recent surgery. There are mild platelike atelectatic changes over both lung bases. IMPRESSION: NG tube below the diaphragm presumably in the stomach. Electronically signed by Howard Valenzuela 09/18/2019 7:16 AM
[2019-09-18 07:59] LABS: BASO# 0.01 X1000 (0.0-0.2); BASO% 0.1 % (0.0-0.8); EOS# 0.03 X1000 (0.0-0.7); EOS% 0.3 % (0.0-10.0); HEMATOCRIT 24.8 % (42.0-52.0); IMM GRAN# 0.04 X1000 (0.0-0.04); IMM GRAN% 0.4 % (0.0-0.5); LYMPH# 0.43 X1000 (1.2-3.4); LYMPH% 4.2 % (20.5-51.1); MCH 27.1 PG (27-31); MCHC 32.3 g/dL (33-37); MCV 84.1 FL (81-99); MONO# 1.18 X1000 (0.11-0.59); MONO% 11.5 % (1.7-9.3); MPV 8.9 FL (7.4-10.4); NEUT# 8.53 X1000 (1.4-6.5); NEUT% 83.5 % (42.2-75.2); PLT 487 X1000 (130-400); RBC 2.95 XMIL (4.7-6.1); RDW 15.9 % (11.5-14.5); WBC 10.22 X1000 (4.8-10.8)
[2019-09-18 08:24] LABS: CALCIUM 8.4 mg/dL (8.8-10.2); CREATININE 3.1 mg/dL (0.7-1.2)
[2019-09-18] MEDS ORDERED: NS 1,000 ML IV SCH (08:30)
[2019-09-18 08:36] LABS: FREE T4 0.82 ng/dL (0.93-1.70)
[2019-09-18 08:44] LABS: TSH 81.21 uIUmL (0.27-4.20)
[2019-09-18] MEDS: DULCOLAX PR SCH (08:58)
[2019-09-18] MEDS: COREG PO SCH ×4 (08:59→20:41)
[2019-09-18] MEDS: MULTAQ PO SCH ×4 (08:59→20:40)
[2019-09-18] MEDS ORDERED: ZOSYN 2.25 GM in NS 50 ML IV SCH (09:00)
--- NOTE | 2019-09-18 13:13 | GENERAL SURGERY PROGRESS NOTE ---
DATE: 09/18/2019 Mr. Marx is somewhat somnolent this morning is afebrile. Heart rate 86, blood pressure 138/62. He has an NG tube that was placed through the night some time. There is no record of how much came out. His abdomen is quiet. He said he has had some flatus. His white count today is 10,000, hemoglobin 8, hematocrit 24.8. His BUN has gone up to 45, creatinine up to 3.1. He will need IV hydration. I will start him back on saline at 100 mL an hour because his kidneys are quite sensitive. cc: Lebron Bee MD
[2019-09-18] MEDS ORDERED: SODIUM CHLORIDE 0.9% INJ ONE (15:37)
[2019-09-18] MEDS ORDERED: SYNTHROID IV ONE (15:37)
[2019-09-18] MEDS ORDERED: CYTOMEL PO ONE (15:39)
--- NOTE | 2019-09-18 16:06 | PROGRESS NOTE ---
DATE: 09/18/2019 INTERVAL HISTORY: Mr. Marx did develop episodes of nausea, vomiting, and retching yesterday evening time for which an abdominal x-ray was performed which had suggested partial small bowel obstruction, so an NG tube was placed and it had almost 100 mL of output. Since then patient has started feeling better. He has been passing gas. VITALS: Temperature 97.8 degrees, pulse 87, respiratory rate 20, blood pressure 143/64, saturating 97% room air. PHYSICAL EXAMINATION: Not in acute distress. Oral cavity is moist. He has a NG tube that is hooked up with suction.Lungs: Air entry bilaterally equal. No wheeze, rhonchi, or crackles. Cardiovascular: S1, S2 normal. No murmur or gallop. Abdomen: Soft. Mild tenderness in right quadrant. He has a right upper quadrant dressing with drain. LABS: Suggestive of hemoglobin of 8, platelet of 487,000. He does have increasing BUN, creatinine of 3.1. His TSH was elevated. Microbiology, no new data. IMAGING: NG tube placement. X-ray suggested NG tube was below diaphragm. ASSESSMENT AND PLAN: 1. Acute blood loss anemia due to gastrointestinal bleed as well as hemoperitoneum after laparoscopic cholecystectomy, status post esophagogastroduodenoscopy with gastric polyp removal and laparoscopic evacuation of intra-abdominal hematoma. I will continue home iron multivitamin tablet and trend hemoglobin. Continue Pepcid and omeprazole. GI and surgical team on board. 2. Postoperative ileus and partial small-bowel obstruction. NG tube has been placed. He has been passing gas. I would anticipate resumption of diet in the next 24 hours. Continue intravenous fluids as per surgical team's recommendation. 3. Suspected acute proctocolitis. The patient did have leukocytosis during hospital admission and the CAT scan performed on September 14 did detect suspected acute proctocolitis. I changed antibiotics to intravenous ceftriaxone and metronidazole from Zosyn. I will monitor his response. If he does not have recurrence of leukocytosis and he is able to tolerate diet, we could consider switching off antibiotics. 4. History of paroxysmal atrial fibrillation on home Eliquis, multiple CVA including left superior frontal and right parietal CVA in the past; status post bioprosthetic mitral valve replacement. Continue home carvedilol, dronedarone. His aspirin and Eliquis have been held due to anemia, GI bleed and hemoperitoneum. Cardiology team on board and the potential plan is to resume anticoagulants/ anti-platelets outpatient in future. 5. History of congestive heart failure with preserved ejection fraction and chronic kidney disease stage 4, currently stable. Considering his worsening creatinine, IV fluids have been resumed. I will follow up with urine output as well as electrolytes tomorrow. I am holding his home metolazone. 6. History of goiter with esophageal compressive symptoms status post thyroidectomy. His TSH continues to remain elevated and he does not have any adrenal insufficiency. I will start him on intravenous levothyroxine now and increase the dose starting tomorrow. Start Liothyronine. Follow up with repeat TSH. He does not have any clinical features of myxedema at the moment. I will monitor him for adrenal insufficiency and recurrence of Atrial fibrillation. DISPOSITION: Continue to monitor patient inside the hospital. Plan of care discussed with him. His questions have been answered. Physical therapy has been working with him. I will consider starting him on chemical DVT prophylaxis. cc: Simba Mcneil MD MTDD
[2019-09-18] MEDS: CYTOMEL PO SCH (20:41)
[2019-09-18] MEDS: PEPCID PO SCH (20:41)
[2019-09-19] MEDS: APRESOLINE PO SCH ×3 (04:50→21:11)
[2019-09-19] MEDS: ROCEPHIN 1 GM in NS 50 ML IV SCH ×2 (04:50→05:01)
[2019-09-19] MEDS: CYTOMEL PO SCH ×3 (04:51→21:11)
[2019-09-19] MEDS: PRILOSEC PO SCH (06:07)
[2019-09-19] MEDS: FLAGYL 500 MG/NS 500 MG/100 ML IVPB IV SCH ×3 (06:07→21:11)
[2019-09-19] MEDS: HUMULIN R SUBQ SCH ×4 (06:34→21:04)
[2019-09-19] MEDS: SYNTHROID IV SCH (06:42)
[2019-09-19 07:55] LABS: BASO# 0.01 X1000 (0.0-0.2); BASO% 0.1 % (0.0-0.8); EOS# 0.05 X1000 (0.0-0.7); EOS% 0.5 % (0.0-10.0); HEMATOCRIT 23.9 % (42.0-52.0); HEMOGLOBIN 7.7 g/dL (14.0-18.0); IMM GRAN# 0.04 X1000 (0.0-0.04); IMM GRAN% 0.4 % (0.0-0.5); LYMPH% 4.9 % (20.5-51.1); MCH 27.2 PG (27-31); MCHC 32.2 g/dL (33-37); MCV 84.5 FL (81-99); MONO# 1.26 X1000 (0.11-0.59); MONO% 12.3 % (1.7-9.3); MPV 9.2 FL (7.4-10.4); NEUT# 8.35 X1000 (1.4-6.5); NEUT% 81.8 % (42.2-75.2); PLT 474 X1000 (130-400); RBC 2.83 XMIL (4.7-6.1); RDW 16.1 % (11.5-14.5); WBC 10.21 X1000 (4.8-10.8)
[2019-09-19] MEDS: MULTAQ PO SCH ×2 (08:18→21:11)
[2019-09-19] MEDS: COREG PO SCH ×2 (08:18→21:11)
[2019-09-19] MEDS: DULCOLAX PR SCH (08:19)
[2019-09-19 08:25] LABS: CALCIUM 8.5 mg/dL (8.8-10.2); CREATININE 3.1 mg/dL (0.7-1.2); POTASSIUM 3.6 mmol/L (3.5-5.1)
--- NOTE | 2019-09-19 08:40 | GENERAL SURGERY PROGRESS NOTE ---
DATE: 09/19/2019 Mr. Marx is better today. He has passed some flatus, had a small bowel movement as well. He is afebrile, heart rate 79, blood pressure 123/60. He has had very little out his NG tube. He has had only 30 mL out his drain. White count is 10,200, hemoglobin 7.7, hematocrit 24. His chemistry today is pending. Plan is to remove his NG tube, remove his drain. We will start him on clear liquids and we will see what his BUN and creatinine are today. cc: Lebron Bee MD
--- NOTE | 2019-09-19 09:55 | PROGRESS NOTE ---
DATE: 09/19/2019 SUBJECTIVE: The patient reports feeling fine. They removed the NG tube this morning. He is not having a good appetite this morning, I think because they just removed the NG tube. He is passing gas. No other complaints at this time. OBJECTIVE: Vital Signs: Temperature 98.0 degrees, heart rate 79, respiratory rate 16, blood pressure 123/60, O2 saturation 100% on room air. General Examination: This is a 63-year-old, male, lying in bed, in no acute distress. Cardiovascular Examination: S1 and S2 heard. No murmurs, gallops, or rubs. Regular rate and rhythm. Respiratory Examination: Clear bilaterally to auscultation. No work of breathing or using accessory muscles. Abdomen: Soft. A little bit distended. Mild tenderness to palpation in the right upper quadrant. Drain has been removed. Bowel sounds present. No organomegaly. Extremities: No clubbing, cyanosis, or edema. Peripheral pulses present in both legs. Neurological Examination: The patient is alert and oriented x3. Moves 4 extremities. Laboratory Data: White cell count 10.21, hemoglobin 7.7, hematocrit 23.9, platelets 474,000. BMP reveals creatinine 3.1 with glucose 149. ASSESSMENT/PLAN: 1. Acute blood loss anemia due to gastrointestinal bleed as well as hemoperitoneum after laparoscopic cholecystectomy, status post esophagogastroduodenoscopy with gastric polyp removal and laparoscopic evacuation of the intra-abdominal hematoma. At this point, we will continue to check CBC daily. Hemoglobin had been yesterday 8.0, today 7.7, basically the same. No signs of overt bleeding. No abdominal pain. At this point, we will continue with omeprazole and Pepcid. General surgery is following this patient. Gastroenterology had signed off 3 days ago from the case. 2. Postoperative ileus and partial small bowel obstruction. That condition is resolved. Nasogastric tube has been removed, as well as the drain. The patient has been started on a clear liquid diet. We will see how this patient does. 3. Acute proctocolitis. We will continue with ceftriaxone and metronidazole. White cell count is normal. We will continue with the same management. 4. History of paroxysmal atrial fibrillation, on home Eliquis, with multiple cerebrovascular accidents including left superior and frontal, and right parietal cerebrovascular accident in the past. At this point, of course, the Eliquis has been held because of the bleeding. We will continue home carvedilol and dronedarone. Aspirin also has been held. Cardiology is following this patient. We will follow recommendations. We will see what day considering that we can restart anticoagulation and antiplatelets. 5. Chronic kidney disease stage 4. Actually, his renal function is stable. We will continue to monitor BMP daily. 6. History of goiter with esophageal compressive symptoms, status post thyroidectomy. The patient has been started on intravenous levothyroxine and Cytomel. Since there are no clinical features of myxedema, we will continue to monitor. 7. Disposition. At this point, the patient is getting better slowly. Patient's nasogastric tube has been removed as well as the surgical drain. Physical therapy has been consulted. Also, we will call occupational therapy. We will see how this patient does. cc: Daniel Martinez MD
[2019-09-19] MEDS: PEPCID PO SCH (21:11)
[2019-09-19] MEDS: ZOFRAN IV PRN (21:16)
[2019-09-19] MEDS: TYLENOL PO PRN (21:17)
[2019-09-20] MEDS: PATIENT'S OWN MED PO SCH ×2 (02:27→21:00)
[2019-09-20] MEDS: ROCEPHIN 1 GM in NS 50 ML IV SCH (05:05)
[2019-09-20] MEDS: PRILOSEC PO SCH ×2 (05:07→06:01)
[2019-09-20] MEDS: CYTOMEL PO SCH ×2 (05:07→16:00)
[2019-09-20] MEDS: APRESOLINE PO SCH ×3 (05:07→22:47)
[2019-09-20] MEDS: SYNTHROID IV SCH ×2 (05:42→06:01)
[2019-09-20] MEDS: FLAGYL 500 MG/NS 500 MG/100 ML IVPB IV SCH ×3 (05:42→22:46)
[2019-09-20] MEDS: HUMULIN R SUBQ SCH ×4 (06:21→22:45)
[2019-09-20 07:04] LABS: BASO# 0.01 X1000 (0.0-0.2); BASO% 0.1 % (0.0-0.8); EOS# 0.07 X1000 (0.0-0.7); EOS% 0.8 % (0.0-10.0); HEMATOCRIT 24.3 % (42.0-52.0); HEMOGLOBIN 7.8 g/dL (14.0-18.0); IMM GRAN# 0.05 X1000 (0.0-0.04); IMM GRAN% 0.6 % (0.0-0.5); LYMPH# 0.44 X1000 (1.2-3.4); LYMPH% 5.3 % (20.5-51.1); MCH 26.9 PG (27-31); MCHC 32.1 g/dL (33-37); MCV 83.8 FL (81-99); MONO# 1.04 X1000 (0.11-0.59); MONO% 12.6 % (1.7-9.3); MPV 8.9 FL (7.4-10.4); NEUT# 6.66 X1000 (1.4-6.5); NEUT% 80.6 % (42.2-75.2); PLT 451 X1000 (130-400); WBC 8.27 X1000 (4.8-10.8)
[2019-09-20 07:20] LABS: ALBUMIN 2.6 g/dL (3.5-5.0); CALCIUM 8.6 mg/dL (8.8-10.2); CREATININE 3.1 mg/dL (0.7-1.2); PHOSPHORUS 2.7 mg/dL (2.7-4.5); POTASSIUM 3.6 mmol/L (3.5-5.1)
[2019-09-20 07:30] LABS: FREE T4 1.28 ng/dL (0.93-1.70); TSH 19.55 uIUmL (0.27-4.20)
--- NOTE | 2019-09-20 07:54 | GENERAL SURGERY PROGRESS NOTE ---
DATE: 09/20/2019 SUBJECTIVE: Mr. Marx is afebrile. Heart rate 83, blood pressure 135/62. He has tolerated liquids satisfactorily. His bowels have moved. LABORATORY DATA: White count 8000, hemoglobin 7.8, hematocrit 24, stable from yesterday. BUN is 42, creatinine 3.1, which remains stable. His TSH has fallen to 19.5. His free T4 is up to 1.28, which is much improved. PLAN: To advance his diet to solids today. cc: Lebron Bee MD
[2019-09-20] MEDS: MULTAQ PO SCH ×2 (08:14→22:45)
[2019-09-20] MEDS: ROCALTROL PO SCH (08:14)
[2019-09-20] MEDS: COREG PO SCH ×2 (08:15→22:46)
[2019-09-20] MEDS: DULCOLAX PR SCH (09:00)
--- NOTE | 2019-09-20 11:16 | PROGRESS NOTE ---
DATE: 09/20/2019 SUBJECTIVE: The patient reports feeling better. The patient has been walking with the help of brother this morning, and he reports feeling okay. He was tolerating food well, and today his diet has been advanced to diabetic diet. OBJECTIVE: Vital Signs: Temperature 98.4 degrees, heart rate 83, respiratory rate 20, blood pressure 135/62, O2 saturation 97% on room air. General: This is a 63-year-old, male, lying in bed in no acute distress. Cardiovascular: S1, S2 heard. No murmurs, gallops, or rubs. Regular rate and rhythm. Respiratory: Clear bilaterally to auscultation. No work of breathing or using accessory muscles. Abdomen: Soft, a little bit distended, nontender to palpation in the right upper quadrant today. Bowel sounds present. No organomegaly. Extremities: No clubbing, cyanosis, or edema. Peripheral pulses present in both legs. Neurological: The patient is alert and oriented. Moves all 4 extremities. His speech is a little bit slow, but no other issues noted. LABORATORY DATA: White cell count 8.27, hemoglobin 7.8, hematocrit 24.3, platelets 451,000. The BMP reveals creatinine 3.1, with glucose 166, TSH 1955, and TSH from 2 days ago was 18.21. ASSESSMENT AND PLAN: 1. Acute blood loss anemia due to gastrointestinal bleeding as well as hemoperitoneum after laparoscopic cholecystectomy, status post esophagogastroduodenoscopy with gastric polyp removal and laparoscopic evaluation of the intraabdominal hematoma. Clinically, this patient is doing fine. He is not having any more symptoms of gastrointestinal bleeding. Surgery is following this patient, and they are going to let this patient have diabetic diet. Gastroenterology has signed off on this case almost 4 to 5 days ago. At this point, the patient is stable from this condition. 2. Postoperative ileus and partial small-bowel obstruction. That condition is completely resolved. The patient is going to be back to diet, in this case, diabetic diet today. 3. Acute proctocolitis. Will continue with ceftriaxone and metronidazole. His white cell count is completely normal. Will continue with the same management, and at discharge, we can switch to Levaquin and metronidazole by mouth. 4. History of paroxysmal atrial fibrillation, on home Eliquis and aspirin. At this point, the patient's heart rate is stable. The patient has been held of course because of this gastrointestinal bleeding. The patient is on carvedilol, and because of elevation of TSH, the patient has been changed from amiodarone to dronedarone. Cardiology has been following this patient. I think at this point, we are not going to restart any anticoagulation or antiplatelet agents yet. 5. Chronic kidney disease stage 4. Creatinine continues to be stable. Will continue to monitor. 6. History of goiter with esophageal compressive symptoms, status post thyroidectomy. The patient is on Cytomel and levothyroxine, and the TSH is improving tremendously. Will continue to monitor. 7. Disposition. At this point, the patient is getting much better. He is working with Physical Therapy and also with family, and he is able to walk around some. I think this patient is getting much better, so whenever this patient is cleared by General Surgery, I think this patient can be discharged. cc: Daniel Martinez MD
[2019-09-20] MEDS: ZOFRAN IV PRN ×2 (12:27→20:44)
[2019-09-20] MEDS ORDERED: PHENERGAN IM ONE (16:02)
[2019-09-20] MEDS: NORCO-7.5 PO PRN (22:44)
[2019-09-20] MEDS: PEPCID PO SCH (22:45)
[2019-09-20] MEDS: PHENERGAN IV PRN (22:50)
[2019-09-21] MEDS: CYTOMEL PO SCH ×4 (01:45→22:16)
[2019-09-21] MEDS: NORCO-7.5 PO PRN (02:52)
[2019-09-21] MEDS: PHENERGAN IV PRN (05:02)
[2019-09-21] MEDS: SODIUM CHLORIDE 0.9% INJ PRN ×2 (05:03→06:35)
[2019-09-21] MEDS: APRESOLINE PO SCH ×3 (06:34→22:16)
[2019-09-21] MEDS: PRILOSEC PO SCH (06:35)
[2019-09-21] MEDS: SYNTHROID IV SCH (06:35)
[2019-09-21] MEDS: FLAGYL 500 MG/NS 500 MG/100 ML IVPB IV SCH ×3 (06:35→22:17)
[2019-09-21] MEDS: HUMULIN R SUBQ SCH ×4 (06:37→22:15)
[2019-09-21 07:13] LABS: BASO# 0.01 X1000 (0.0-0.2); BASO% 0.1 % (0.0-0.8); EOS# 0.06 X1000 (0.0-0.7); EOS% 0.7 % (0.0-10.0); HEMATOCRIT 23.2 % (42.0-52.0); HEMOGLOBIN 7.4 g/dL (14.0-18.0); IMM GRAN# 0.03 X1000 (0.0-0.04); IMM GRAN% 0.4 % (0.0-0.5); LYMPH# 0.61 X1000 (1.2-3.4); LYMPH% 7.5 % (20.5-51.1); MCH 26.8 PG (27-31); MCHC 31.9 g/dL (33-37); MCV 84.1 FL (81-99); MONO# 0.98 X1000 (0.11-0.59); MONO% 12.1 % (1.7-9.3); MPV 9.2 FL (7.4-10.4); NEUT# 6.43 X1000 (1.4-6.5); NEUT% 79.2 % (42.2-75.2); PLT 422 X1000 (130-400); RBC 2.76 XMIL (4.7-6.1); RDW 16.4 % (11.5-14.5); WBC 8.12 X1000 (4.8-10.8)
[2019-09-21 07:32] LABS: ALBUMIN 2.5 g/dL (3.5-5.0); CALCIUM 8.4 mg/dL (8.8-10.2); CREATININE 3.4 mg/dL (0.7-1.2); PHOSPHORUS 3.2 mg/dL (2.7-4.5); POTASSIUM 3.7 mmol/L (3.5-5.1)
[2019-09-21] MEDS: ROCEPHIN 1 GM in NS 50 ML IV SCH (09:00)
[2019-09-21] MEDS: MULTAQ PO SCH ×2 (10:03→22:17)
[2019-09-21] MEDS: DULCOLAX PR SCH (10:04)
[2019-09-21] MEDS: COREG PO SCH ×2 (10:04→22:16)
[2019-09-21] MEDS: ZOFRAN IV PRN ×2 (10:08→14:08)
[2019-09-21] MEDS ORDERED: NS 500 ML IV ONE (10:20)
[2019-09-21 11:08] LABS: INR 1.32; PROTIME 16.6 Seconds (11.0-16.0)
--- NOTE | 2019-09-21 11:29 | PROGRESS NOTE ---
DATE: 09/21/2019 SUBJECTIVE: The patient has been vomiting since we advanced his diet to a diabetic diet. He has been placed on clear liquid diet again, and since then, he reports that he is feeling better. Denies any fever or chills. No other complaints noted. OBJECTIVE: Vital Signs: Temperature 98.3 degrees, heart rate 85, respiratory rate 20, blood pressure 130/62, O2 saturation 97% on room air. General: This is a chronically ill-looking, 63- year-old, male, lying in bed in no acute distress. Cardiovascular: S1, S2 heard. No murmurs, gallops, or rubs. Regular rate and rhythm. Respiratory: Clear bilaterally to auscultation. No work of breathing or using accessory muscles. Abdomen: Soft, a little bit distended, nontender to palpation in the right upper quadrant. Bowel sounds present. No organomegaly. Extremities: No clubbing, cyanosis, or edema. Peripheral pulses present in both legs. Neurological: The patient is alert and oriented. His speech is a little bit slow. Moves all 4 extremities. LABORATORY DATA: White cell count 8.12, hemoglobin 7.4, hematocrit 23.2, platelets 422,000. BMP reveals creatinine 3.4. ASSESSMENT AND PLAN: 1. Acute blood loss anemia due to gastrointestinal bleeding as well as hemoperitoneum after laparoscopic cholecystectomy, status post esophagogastroduodenoscopy with gastric polyp removal and laparoscopic evaluation of the intra-abdominal hematoma. Clinically, this patient is doing fine. We have noted that hemoglobin has dropped from 7.8 to 7.4, so considering his history of bleeding, I prefer to go ahead and transfuse 1 unit of blood. 2. Postoperative ileus and partial small-bowel obstruction. The patient started vomiting after we advanced his diet to diabetic diet, so at this point, the patient has been placed back on clear liquid diet. Will advance his diet this time really slow. 3. Acute proctocolitis. Will continue with ceftriaxone and metronidazole, and at discharge, will change to Levaquin and Flagyl by mouth. 4. History of paroxysmal atrial fibrillation, on home Eliquis and aspirin. At this point, those medications have been held. The patient is on dronedarone. 5. Chronic kidney disease stage 4. Creatinine has gotten worse a little bit, probably because this patient was vomiting. Will continue to monitor this patient closely. Will provide some intravenous fluids. 6. History of goiter with esophageal compressive symptoms, status post thyroidectomy. Will continue with levothyroxine and Cytomel. TSH improving tremendously when we checked it from 2 days ago. Will continue to monitor. 7. Disposition. At this point, will continue to monitor this patient closely. Will advance his diet slowly. cc: Daniel Martinez MD
[2019-09-21] MEDS ORDERED: NS 250 ML ONE (13:41)
--- NOTE | 2019-09-21 14:00 | Diag Imaging Result Doc PS360 ---
EXAM: ABDOMEN FLAT/UPRIGHT HISTORY: sbo TECHNIQUE: Three views COMPARISON: 09/18/2019 FINDINGS: No free air beneath the diaphragm. There are air distended loops of small bowel which persists. There is air in the proximal colon. The gallbladder has been removed. No organomegaly. IMPRESSION: Persistent ileus or partial small bowel obstruction Electronically signed by Laz Caldwell 09/21/2019 1:57 PM
--- NOTE | 2019-09-21 15:13 | GENERAL SURGERY PROGRESS NOTE ---
DATE: 09/21/2019 Mr. Marx is very somnolent today. He did arouse upon touching him and talking to him. He is placed back on clear liquids. I will stop his [place]. I suspect his Phenergan has made him extremely sleepy. cc: Lebron Bee MD
[2019-09-21] MEDS: PATIENT'S OWN MED PO SCH (22:17)
[2019-09-21] MEDS: PEPCID PO SCH (22:17)
[2019-09-22] MEDS: PHENERGAN IV PRN (03:21)
[2019-09-22] MEDS: SODIUM CHLORIDE 0.9% INJ PRN ×2 (03:21→06:54)
[2019-09-22] MEDS: FLAGYL 500 MG/NS 500 MG/100 ML IVPB IV SCH ×4 (06:54→20:59)
[2019-09-22] MEDS: SYNTHROID IV SCH (06:54)
[2019-09-22] MEDS: CYTOMEL PO SCH ×3 (06:58→20:57)
[2019-09-22] MEDS: APRESOLINE PO SCH ×3 (06:58→20:57)
[2019-09-22 07:47] LABS: BASO# 0.01 X1000 (0.0-0.2); BASO% 0.1 % (0.0-0.8); EOS# 0.03 X1000 (0.0-0.7); EOS% 0.4 % (0.0-10.0); HEMATOCRIT 26.8 % (42.0-52.0); HEMOGLOBIN 8.5 g/dL (14.0-18.0); IMM GRAN# 0.04 X1000 (0.0-0.04); IMM GRAN% 0.5 % (0.0-0.5); LYMPH# 0.59 X1000 (1.2-3.4); LYMPH% 7.1 % (20.5-51.1); MCH 26.5 PG (27-31); MCHC 31.7 g/dL (33-37); MCV 83.5 FL (81-99); MONO# 1.01 X1000 (0.11-0.59); MONO% 12.1 % (1.7-9.3); MPV 9.2 FL (7.4-10.4); NEUT# 6.68 X1000 (1.4-6.5); NEUT% 79.8 % (42.2-75.2); PLT 378 X1000 (130-400); RBC 3.21 XMIL (4.7-6.1); RDW 16.3 % (11.5-14.5); WBC 8.36 X1000 (4.8-10.8)
[2019-09-22 07:58] LABS: ALBUMIN 2.4 g/dL (3.5-5.0); CALCIUM 8.4 mg/dL (8.8-10.2); CREATININE 3.3 mg/dL (0.7-1.2); PHOSPHORUS 3.1 mg/dL (2.7-4.5); POTASSIUM 3.6 mmol/L (3.5-5.1)
[2019-09-22] MEDS: ROCEPHIN 1 GM in NS 50 ML IV SCH (08:46)
[2019-09-22] MEDS: ROCALTROL PO SCH (08:54)
[2019-09-22] MEDS: PRILOSEC PO SCH (08:54)
[2019-09-22] MEDS: COREG PO SCH ×2 (08:54→20:57)
[2019-09-22] MEDS: MULTAQ PO SCH ×2 (08:54→20:58)
[2019-09-22] MEDS: DULCOLAX PR SCH (08:56)
[2019-09-22] MEDS: HUMULIN R SUBQ SCH ×4 (10:38→20:11)
--- NOTE | 2019-09-22 11:43 | PROGRESS NOTE ---
DATE: 09/22/2019 SUBJECTIVE: I was called yesterday to inform that this patient, even though he was placed on clear liquids, he continued to vomit many times, and an x-ray that we repeated yesterday showed persistent ileus or partial small bowel obstruction. He has been vomiting and today the patient is more confused with more abdominal distention and of course no appetite. OBJECTIVE: Vital Signs: Temperature 98.2 degrees, heart rate 81, respiratory 16, blood pressure 136/62, O2 saturation 95% on room air. General examination: This is a chronically ill-looking, 63-year-old male, looking older than his stated age, lying in bed in no acute distress. Cardiovascular exam: S1, S2 heard. No murmurs, gallops, or rubs. Regular rate and rhythm. Respiratory exam: Clear bilaterally to auscultation. No work of breathing or using accessory muscles. Abdomen: Soft. Definitely much more distended in comparing with yesterday. Apparently nontender to palpation. Bowel sounds present. No organomegaly. Extremities: No clubbing, cyanosis, or edema. Peripheral pulses present in the legs. Neurological: Patient is definitely more sleepy. He does not follow commands. Today moves 4 extremities spontaneously. LABORATORY DATA: White cell count 8.36, hemoglobin 8.5, hematocrit 26.8, platelets 378. Creatinine 2.3, phosphorus is. 3.1, albumin 2.4. ASSESSMENT AND PLAN: 1. Acute blood loss anemia due to gastrointestinal bleeding, as well as hemoperitoneum after laparoscopic cholecystectomy. 2. Status post esophagogastroduodenoscopy with gastric polyp removal. 3. Laparoscopic evaluation of the intra-abdominal hematoma. Clinically, this patient is getting worse. His abdominal distention is getting worse. He received 1 unit of blood yesterday, and his hemoglobin is much more stable at 8.5. Considering this worsening abdominal distention, partial small bowel obstruction partial small bowel obstruction on the x-ray of the abdomen, we will order a CT of the abdomen and pelvis without contrast. We will see what it shows. 4. Postoperative ileus and partial small bowel obstruction is what the x-rays show. So, we will repeat the CAT scan and will go from there. 5. Acute proctocolitis. Will continue with ceftriaxone and metronidazole. 6. History of paroxysmal atrial fibrillation. We will place patient on aspirin. Heart rate is well controlled. The patient is on dronabinol. 7. Chronic kidney disease stage IV. Creatinine continues to be at baseline. We will continue to monitor. 8. History of goiter with esophageal compressive symptoms status post thyroidectomy. We will continue to provide levothyroxine and Cytomel. We will continue to monitor. We will check thyroid stimulating hormone probably tomorrow. 9. Disposition: We will continue to monitor this patient closely. We will transfer this patient to progressive care unit. cc: Daniel Martinez MD
[2019-09-22] MEDS: PROTONIX IV SCH ×2 (12:14→20:57)
[2019-09-22] MEDS: SODIUM CHLORIDE 0.9% INJ SCH (12:15)
--- NOTE | 2019-09-22 12:39 | Diag Imaging Result Doc PS360 ---
EXAM: CT THORAX/ABD/PELVIS W/O CON 09/22/2019 HISTORY: worsening abd distension, sob, asp pna TECHNIQUE: This exam was performed using automated exposure control, adjustment of mA or kV according to patient size, and/or use of iterative reconstruction technique. COMMENT: Thorax: There is an NG tube in the esophagus with its tip in the gastric body. There is some minimal atelectatic opacity in the lung bases particularly in the right posterior costophrenic sulcus. There is a small right pleural effusion. There is no evidence of significant adenopathy. There is no evidence of acute bony abnormality. Compared to the previous abdominal study of 09/15/2019 the basilar atelectatic change in right pleural effusion were not present previously. ABDOMEN/pelvis: There is fluid in the right subphrenic space and paracolic gutter. The CT density of the fluid in the right subphrenic space is over 30 Hounsfield units as is the fluid in the paracolic gutter. This is likely blood. This was also present at the time the previous study of 09/15/2019. There has been cholecystectomy and there is an apparent hematoma inferior to the gallbladder fossa measuring up to 6.8 cm in axial dimension. This measured over 7 cm previously. There are some distended small bowel loops in the anterior and left abdomen. The distal ileum is not distended and there is an apparent transition just to the right of the midline on image 110. There is diverticulosis in the colon. There is some free fluid in the pelvis which is also likely blood. The urinary bladder is not distended. There are degenerative changes in the hips and sacroiliac ankylosis. There is severe facet and disc arthropathy in the lumbar spine. IMPRESSION: 1. Right pleural effusion and bibasilar atelectasis. 2. Subphrenic and intraperitoneal hematoma with blood in the pelvis as well. These findings were also present on 09/15/2019. 3. Partial small bowel obstruction. Electronically signed by Howard Valenzuela 09/22/2019 12:37 PM
[2019-09-22] MEDS: ZOFRAN IV PRN (15:47)
[2019-09-22] MEDS: PATIENT'S OWN MED PO SCH (20:58)
[2019-09-23] MEDS: APRESOLINE PO SCH ×3 (05:27→22:02)
[2019-09-23] MEDS: CYTOMEL PO SCH ×3 (05:27→22:03)
[2019-09-23] MEDS: SYNTHROID IV SCH ×2 (05:27→06:34)
[2019-09-23] MEDS: FLAGYL 500 MG/NS 500 MG/100 ML IVPB IV SCH ×2 (05:27→17:00)
[2019-09-23] MEDS: HUMULIN R SUBQ SCH ×4 (06:34→21:14)
[2019-09-23 06:40] LABS: EOS# 0.06 X1000 (0.0-0.7); EOS% 0.8 % (0.0-10.0); HEMATOCRIT 27.2 % (42.0-52.0); HEMOGLOBIN 8.7 g/dL (14.0-18.0); IMM GRAN# 0.04 X1000 (0.0-0.04); IMM GRAN% 0.5 % (0.0-0.5); LYMPH# 0.38 X1000 (1.2-3.4); LYMPH% 4.8 % (20.5-51.1); MCH 26.7 PG (27-31); MCV 83.4 FL (81-99); MONO# 1.24 X1000 (0.11-0.59); MONO% 15.5 % (1.7-9.3); MPV 9.3 FL (7.4-10.4); NEUT# 6.26 X1000 (1.4-6.5); NEUT% 78.4 % (42.2-75.2); PLT 361 X1000 (130-400); RBC 3.26 XMIL (4.7-6.1); RDW 16.7 % (11.5-14.5); WBC 7.98 X1000 (4.8-10.8)
[2019-09-23 07:20] LABS: ALBUMIN 2.4 g/dL (3.5-5.0); CALCIUM 8.7 mg/dL (8.8-10.2); CREATININE 3.3 mg/dL (0.7-1.2); PHOSPHORUS 3.2 mg/dL (2.7-4.5); POTASSIUM 3.6 mmol/L (3.5-5.1)
--- NOTE | 2019-09-23 09:18 | EKG Report ---
Test Performed on : 09/23/2019 09:00:52 AM Test Reason : CODE STROKE Blood Pressure : / mmHG Vent. Rate : 086 BPM Atrial Rate : 086 BPM P-R Int : 182 ms QRS Dur : 116 ms QT Int : 424 ms P-R-T Axes : 041 -09 068 degrees QTc Int : 507 ms Normal sinus rhythm. Anterior infarct , age undetermined Prolonged QT Abnormal ECG When compared with ECG of 16-SEP-2019 17:23, No significant change was found Confirmed by Osman Sanders MD ([id number]) on 09/23/2019 9:37:12 PM
--- NOTE | 2019-09-23 09:33 | Diag Imaging Result Doc PS360 ---
CT HEAD W/O CONTRAST - 09/23/2019 INDICATION: left sided weakness COMPARISON: 09/16/2019 FINDINGS: Stable areas of old encephalomalacia at the left frontal and right parietal lobes. No intracranial mass or hemorrhage. No atrophy or new abnormalities. There is a nasogastric tube. The skull is intact. The sinuses are clear. IMPRESSION: No acute disease or change from prior. This exam was performed using automated exposure control, adjustment of mA or kV according to patient size, and/or use of iterative reconstruction technique Electronically signed by Casey Gamino 09/23/2019 9:31 AM
[2019-09-23] MEDS ORDERED: ASPIRIN PR ONE (09:46)
[2019-09-23] MEDS: DULCOLAX PR SCH (11:18)
[2019-09-23] MEDS: ROCEPHIN 1 GM in NS 50 ML IV SCH (12:11)
[2019-09-23] MEDS: MULTAQ PO SCH ×2 (12:11→22:04)
[2019-09-23] MEDS: PROTONIX IV SCH ×2 (12:11→22:03)
[2019-09-23] MEDS: COREG PO SCH ×2 (12:11→22:03)
[2019-09-23] MEDS: ZOFRAN IV PRN ×2 (12:23→22:08)
--- NOTE | 2019-09-23 13:08 | NEUROLOGY CONSULTATION ---
DATE: 09/23/2019 HISTORY: Mr. Marx is [id number], and he had an episode this morning raising the question of an acute neurologic event. History from the patient is he does not have clear memory of this. He thinks he remembers a little bit of the time staff was checking on him, and asking him questions. He feels tired now, but otherwise recovered. Family member reports coming in this morning and noticing the patient had a crooked face, flatter on the left, and pulled towards the right. The patient seemed awake and alert. When he attempted to speak, Mr. Marx's speech was unintelligible. Urgent noncontrast CT of the head shows areas of encephalomalacia in the left frontal and right parietal lobes which had been noted on previous scans. There was no evidence of anything new, no evidence of bleeding, no new focal lesion, no evidence of edema. Lab shows BUN 111 earlier this admission, stable in the 40s recently. Sodium had been 127 earlier and normal now. Calcium has been stable at 8.7. Blood sugars were initially 300, recently stable in the mid 100s. There was no urine drug screen this admission. Last lipid profile reported in this computer was unremarkable in 2018. He had temperature recorded 100.4 on 09/21/2019, and he has been afebrile since then. Recent systolic blood pressures have ranged 140s-150s. He was initially admitted with abdominal pain, and developed ileus and hemoperitoneum following laparoscopic cholecystectomy. He has had a stable course in recent days. There is a report that he had an episode of generalized shaking earlier, but family at the bedside who witnessed that spell reports he seemed to be awake during a portion of that. He had reported that he felt odd, like he was floating, and that he could not see immediately prior to that episode. Shaking was generalized for 15 minutes, and resolved spontaneously. There has been no recurrence of that type of episode. There is no prior history of clinical stroke. I discussed the CT findings with the patient and family, and they do not recall any previous neurologic event. He has never had seizure, serious head injury, alcohol abuse, or illicit drug use. PHYSICAL EXAMINATION: On exam now, Mr. Marx is awake, alert, and attentive. He seems appropriate. Speech is slow, slightly dysarthric, but easily understood. Voice is weak. Language function is intact on bedside testing of repeating, naming, comprehension, fluency, right/left distinction, and digit distinction. He is completely oriented to all parameters. He discussed recent news with accurate detail. I did not test his cognitive function further. Head and neck are unremarkable. There is no meningismus. Visual bird are full to confrontational finger counting. Extraocular movements are full. Facial motility is symmetric. Tongue is midline. Palate elevates weakly but midline. Shoulder shrug is equal. Strength is normal in the arms and legs, except that I can overcome the right arm at the shoulder in a pattern more typical of shoulder joint problem. He has trouble with rapid alternating movements using the left arm more typical of restrictions caused by the blood pressure cuff and IV lines. There was no cerebellar deficit. He reports good sensation across the face. He initially reported diminished pinprick appreciation over the left hand compared to the right, but that was inconsistent on repeat testing. Plantar response is silent bilaterally. Reflexes are absent at the ankles and 1+ symmetrically at the wrists. I did not test his gait. IMPRESSION: 1. Episode earlier today of uncertain etiology. This sounds like a transient focal neurologic deficit, possibly right hemisphere since left face was flattened. He is right handed, and there should not be associated language deficit, so I suspect the speech problem was anarthria and not dysphasia. He seems to be recovered now. Negative CT is reassuring, but would not exclude acute ischemic infarct. Unfortunately, MRI is not an option. We might repeat CT with contrast later. 2. There was an episode of shaking with possible transient altered awareness earlier this admission. Altered awareness was not certain with episode today, but he did report incomplete memory of that. I will order EEG to make sure there is no evidence of tendency to seizure. 3. CT evidence of encephalomalacia, bilateral cerebral hemispheres. This is statistically most likely related to prior infarction, but he has no recollection of that. These areas of encephalomalacia might be associated with other remote neurologic event. I do not think we need urgent workup, but might consider echocardiogram electively. Thanks for asking Neurology to see Mr. Marx. cc: MD ALBA Villanueva III
[2019-09-23] MEDS ORDERED: CALMOSEPTINE OINTMENT TOP PRN (14:27)
--- NOTE | 2019-09-23 16:43 | PROGRESS NOTE ---
DATE: 09/23/2019 INTERVAL HISTORY: Patient with episode this morning where he had almost complete aphasia. Left facial droop and left-sided weakness. On exam he had fairly subtle left facial droop. The patient occasionally attempted to talk but had difficulty getting any words out. Pupils are equal, round, reactive to light but had difficulty getting him to attempt to track to any quadrant so not entirely sure about that. He did appear to have some left foot drop at the time. Left upper extremity was very subtly weaker than the right. There was concern for stroke so a stat CT head was obtained which showed old encephalomalacia but no acute process. Patient was not a tPA candidate because of recent intraabdominal bleed. We cannot obtain MRI because the patient pacemaker. We could not obtain CTA because of patient's kidney function. However patient's symptoms spontaneously resolved and he is back to baseline, speaking normally and without any significant left-sided weakness. No tonic-clonic activity or eye deviation was noted. REVIEW OF SYSTEMS: Unable to obtain secondary to patient mental status . LABS: WBC 7.9, hemoglobin 8.7, hematocrit 27.2, platelets 361,000. Sodium 145, potassium 3.6, BUN 47, creatinine 2.3, glucose 134 to 168 . VITALS: T-max 98.4 degrees, pulse 83, respirations 16, blood pressure 155/77, O2 saturation 96% on room air. PHYSICAL EXAMINATION: General: No acute distress, chronically ill appearing. Vitals as above. HEENT: Normocephalic, atraumatic. No cervical adenopathy. Cardiovascular: Regular rate and rhythm. No murmurs noted. Pulmonary: Clear to auscultation bilaterally. No wheezing, rales or rhonchi. Abdomen: Soft, minimal diffuse tenderness. Bowel sounds decreased but present. Extremities: Peripheral pulses intact. No clubbing or cyanosis. Neurologic: Pupils equal, round, reactive to light. Eyes both straight ahead. Patient not really tracking during my initial exam. Patient did squeeze with both hands with the left being slightly weaker than the right. A little bit of left footdrop with some weakness of left dorsiflexion compared to the right but plantar flexion relatively intact. Patient following commands fairly well but difficulty getting the words out. Psychiatric: Awake, alert, following commands but nonverbal. ASSESSMENT AND PLAN: 1. Peritoneal hematoma slightly decreased on most recent CT. Blood counts stable. Appears to be resolving slowly. 2. Likely transient ischemic attack. Patient with symptoms this morning concerning for stroke but resolved spontaneously so likely transient ischemic attack. Neurology involved and also planning on EEG to rule out seizure disorder. As the hematoma does appear to be improving and blood counts have been stable for a couple days now will put him on low-dose aspirin and statin and monitor closely. 3. Small bowel obstruction still present on most recent CT yesterday afternoon. No nausea or vomiting today although he did have some yesterday. Surgery following. Continue patient NPO for now and monitor closely. 4. Acute blood loss anemia, patient status post transfusion of 4 units of blood. Blood counts pretty stable over the last couple days and on last CT hematoma appeared to be improving. Monitor closely. 5. Paroxysmal atrial fibrillation, regular rhythm at the time of my exam. 6. Chronic kidney disease stage 4 creatinine function stable. 7. Hypothyroidism, continue Synthroid. 8. Coronary artery disease, restarting aspirin as above. Continue to hold Eliquis given recent bleed. 9. Peripheral vascular disease. stable. restarting aspirin as above. 10. Diabetes, acceptable control currently. 11. Bovine mitral valve noted. MTDD
--- NOTE | 2019-09-23 18:29 | EEG REPORT ---
DATE: 09/23/2019 COMMENT: This is a digitally recorded EEG on a 63-year-old patient with recent possible altered awareness, possible TIA. There is question of seizure. FINDINGS: During waking, low amplitude 9-9.5 Hz posterior rhythm is present bilaterally with uncertain reactivity to eye opening. Background contains polymorphic and rhythmic theta frequencies over the frontal and central regions symmetrically. There is occasional muscle contraction artifact which did not hinder interpretation. Photic stimulation produced some symmetric entrainment at mid flash frequencies. Drowsing occurred with appearance of more generalized slowing. Stage 2 sleep was not recorded. No definite epileptiform discharge was identified. INTERPRETATION: Normal EEG. CORRELATION: The absence of epileptiform discharges on a single EEG does not exclude a clinical diagnosis of seizures, but there is nothing on this record to suggest a tendency to seizure. There is no focal slowing to correlate with ongoing cortical ischemia. cc: Willem Thompson III, MD MTDD
--- NOTE | 2019-09-23 18:57 | GENERAL SURGERY PROGRESS NOTE ---
DATE: 09/23/2019 SUBJECTIVE: Mr. Marx has had his NG tube replaced and there was 500 mL recorded as output. He has bowel sounds. He continues to have some liquid brown stool. Afebrile. Heart rate 84. Blood pressure 175/81. Hemoglobin 8.7, hematocrit 27.2, BUN 47, creatinine 3.3. ASSESSMENT: Apparently he has an ileus. We will recheck x-ray of his abdomen tomorrow to see if he has some resolution of his abdominal distention. He will need some peripheral nutrition. cc: Lebron Bee MD
[2019-09-23] MEDS: SODIUM CHLORIDE 0.9% INJ SCH (22:03)
[2019-09-23] MEDS: LIPITOR PO SCH (22:03)
[2019-09-23] MEDS: PATIENT'S OWN MED PO SCH (22:05)
[2019-09-24] MEDS: FLAGYL 500 MG/NS 500 MG/100 ML IVPB IV SCH ×3 (00:23→15:04)
[2019-09-24] MEDS: HUMULIN R SUBQ SCH ×4 (06:32→21:24)
[2019-09-24] MEDS: APRESOLINE PO SCH ×3 (06:37→22:30)
[2019-09-24] MEDS: CYTOMEL PO SCH ×3 (06:37→22:30)
[2019-09-24] MEDS: SYNTHROID IV SCH (06:37)
[2019-09-24 07:09] LABS: BASO# 0.01 X1000 (0.0-0.2); BASO% 0.1 % (0.0-0.8); EOS# 0.04 X1000 (0.0-0.7); EOS% 0.6 % (0.0-10.0); HEMATOCRIT 28.4 % (42.0-52.0); LYMPH# 0.97 X1000 (1.2-3.4); LYMPH% 14.1 % (20.5-51.1); MCH 26.7 PG (27-31); MCHC 31.7 g/dL (33-37); MCV 84.3 FL (81-99); MONO# 0.68 X1000 (0.11-0.59); MONO% 9.9 % (1.7-9.3); MPV 9.3 FL (7.4-10.4); NEUT# 5.18 X1000 (1.4-6.5); NEUT% 75.3 % (42.2-75.2); PLT 365 X1000 (130-400); RBC 3.37 XMIL (4.7-6.1); RDW 17.1 % (11.5-14.5); WBC 6.88 X1000 (4.8-10.8)
[2019-09-24 07:28] LABS: ALBUMIN 2.2 g/dL (3.5-5.0); CALCIUM 8.2 mg/dL (8.8-10.2); CREATININE 2.8 mg/dL (0.7-1.2); PHOSPHORUS 3.1 mg/dL (2.7-4.5); POTASSIUM 3.6 mmol/L (3.5-5.1)
--- NOTE | 2019-09-24 07:35 | Diag Imaging Result Doc PS360 ---
KUB ABDOMEN - 09/24/2019 INDICATION: ileus COMPARISON: 09/21/2019 FINDINGS: There has been significant improvement in the diffuse gas-distended loops of small bowel. There are still some abnormally gas-distended small bowel in the left side of the abdomen. These measure up to 4.3 cm. No free air. No significant rectal gas. IMPRESSION: Improvement in the diffusely abnormal distended small bowel. Electronically signed by Casey Gamino 09/24/2019 7:33 AM
[2019-09-24 07:41] LABS: EOS 2 % (1-10); LYMPHS 8 % (21-51); MONO 8 % (1-9); SEGS 76 % (42-75)
[2019-09-24] MEDS: DULCOLAX PR SCH (08:24)
[2019-09-24] MEDS: COREG PO SCH ×2 (08:27→22:10)
[2019-09-24] MEDS: ZAROXOLYN PO SCH (08:27)
[2019-09-24] MEDS: PROTONIX IV SCH ×2 (08:28→22:31)
[2019-09-24] MEDS: ROCALTROL PO SCH (08:28)
[2019-09-24] MEDS: ROCEPHIN 1 GM in NS 50 ML IV SCH ×2 (08:28→11:34)
[2019-09-24] MEDS: ASPIRIN PO SCH (08:28)
[2019-09-24] MEDS: MULTAQ PO SCH ×2 (08:28→22:31)
[2019-09-24] MEDS: SODIUM CHLORIDE 0.9% INJ SCH ×2 (08:28→22:31)
[2019-09-24] MEDS: 1/2 NS 1,000 ML IV SCH (10:43)
--- NOTE | 2019-09-24 11:38 | GENERAL SURGERY PROGRESS NOTE ---
DATE: 09/24/2019 SUBJECTIVE/OBJECTIVE: Mr. Marx says he feels better. He is afebrile. Heart rate 87, blood pressure 151/73. He says he has passed flatus and had a bowel movement as well. LABORATORY DATA: Reveals a white count of 6900, hemoglobin 9, hematocrit 28, BUN 41, creatinine 2.8. ASSESSMENT AND PLAN: I believe his ileus is resolving. We will clamp his nasogastric tube. His creatinine is started to fall again too. Peripheral nutrition may still be in order. cc: Lebron Bee MD
--- NOTE | 2019-09-24 15:13 | PROGRESS NOTE ---
DATE: 09/24/2019 INTERVAL HISTORY: Patient with no further nausea or vomiting. No further stroke-like symptoms. Speech now clear. No further left-sided deficits. No new complaints. REVIEW OF SYSTEMS: A 12-point review of systems negative except as per interval history. LABORATORY: WBC 6.8, hemoglobin 9, hematocrit 28.4, platelets 365,000. Sodium 150, potassium 3.6, BUN 41, creatinine 2.8, glucose 117 to 134. IMAGING: Abdominal x-ray with some improvement in distended small bowel. VITAL SIGNS: T-max 98.4 degrees, pulse 82, respirations 16, blood pressure 115/73, O2 saturation 98% on room air. PHYSICAL EXAMINATION: General: No acute distress. Vital signs: As above. HEENT: Normocephalic, atraumatic. Moist mucous membranes. No cervical adenopathy. Cardiovascular: Regular rate and rhythm. No murmurs noted. Pulmonary: Clear to auscultation bilaterally. No wheezing, rales, or rhonchi. Abdomen: Soft, nontender at this point. Bowel sounds improved from previous. Extremities: Peripheral pulses intact. No clubbing or cyanosis. Neurologic: Cranial nerves now grossly intact. Speech clear. No further left-sided weakness. Extraocular muscles intact. Following commands well. Psychiatric: Awake, alert, oriented x3. ASSESSMENT AND PLAN: 1. Peritoneal hematoma. Hematoma slightly decreased on most recent computed tomography. Blood counts remain stable despite restarting of aspirin. Doing fairly well. 2. Small bowel obstruction. Still present on most recent computed tomography, but does appear to be improving on most recent abdominal x-ray. No nausea and vomiting over the last couple days. Clamping nasogastric tube today. Hopefully, we will be able to start him on clears in the near future. 3. Likely transient ischemic attack. Patient with sudden onset of aphasia and some left-sided weakness yesterday. Concern for stroke. Computed tomography was obtained and was unremarkable. Patient was not a candidate for tPA because of recent peritoneal hematoma. Patient could not get an MRI because of his pacemaker. However, patient's symptoms resolved spontaneously with no residual deficits. The patient's aspirin was restarted. He was also placed on a statin. His symptoms remain resolved currently. 4. Acute blood loss anemia. Patient is status post transfusion of 4 units of blood. Blood counts pretty stable over the last 2 or 3 days. 5. Paroxysmal atrial fibrillation, regular rhythm at the time of my exam. Holding home Eliquis. 6. Chronic kidney disease 4. Creatinine down a hair today but overall creatinine has been pretty stable over the course of this hospitalization. 7. Hypothyroidism. Continue Synthroid. 8. Coronary artery disease back on aspirin as above. 9. Peripheral vascular disease, stable. 10. Diabetes, acceptable control. Monitor labs. 11. Bovine mitral valve. Noted.
--- NOTE | 2019-09-24 15:16 | NEUROLOGY PROGRESS NOTE ---
DATE: 09/24/2019 Mr. Marx reports he feels better today, a little bit stronger. He has not had any further episodes or altered awareness, memory gap, facial asymmetry or other neurologic event. Family at the bedside confirms no witnessed episodes in the last 24 hours. EEG yesterday was normal. There was no epileptiform discharge or other evidence of seizure. On exam, he is awake, alert, attentive. Speech is stronger than yesterday and not dysarthric. There is good facial motility bilaterally. I can overcome the right arm at the deltoid as before consistent with shoulder joint problems and I do not find any definite focal neurologic deficit. IMPRESSION: Recent neurologic event, uncertain etiology, TIA seems most likely. Normal EEG does not exclude a clinical diagnosis of seizure, but makes that at least a little bit less likely. Aspirin has been added and he continues statin and blood pressure medicine. MRI/MRA (pacemaker) and CTA (elevated creatinine) are not options. I do not have any urgent suggestions. We might check elective carotid ultrasound and echocardiogram, but these are not urgent. Thanks for asking Neurology to see Mr. Marx. cc: MD ALBA Villanueva III
[2019-09-24] MEDS: LIPITOR PO SCH (22:30)
[2019-09-25] MEDS: FLAGYL 500 MG/NS 500 MG/100 ML IVPB IV SCH ×4 (00:21→23:05)
[2019-09-25] MEDS: PATIENT'S OWN MED PO SCH ×2 (00:26→21:20)
[2019-09-25] MEDS: 1/2 NS 1,000 ML IV SCH (00:27)
[2019-09-25] MEDS: SYNTHROID IV SCH (06:12)
[2019-09-25] MEDS: APRESOLINE PO SCH ×3 (06:12→23:05)
[2019-09-25] MEDS: CYTOMEL PO SCH ×3 (06:12→23:05)
[2019-09-25 06:27] LABS: BASO# 0.01 X1000 (0.0-0.2); BASO% 0.2 % (0.0-0.8); EOS# 0.06 X1000 (0.0-0.7); EOS% 1.1 % (0.0-10.0); HEMATOCRIT 26.9 % (42.0-52.0); HEMOGLOBIN 8.6 g/dL (14.0-18.0); IMM GRAN# 0.02 X1000 (0.0-0.04); IMM GRAN% 0.4 % (0.0-0.5); LYMPH# 0.51 X1000 (1.2-3.4); LYMPH% 9.7 % (20.5-51.1); MCH 26.7 PG (27-31); MCV 83.5 FL (81-99); MONO# 0.86 X1000 (0.11-0.59); MONO% 16.3 % (1.7-9.3); MPV 9.2 FL (7.4-10.4); NEUT# 3.81 X1000 (1.4-6.5); NEUT% 72.3 % (42.2-75.2); PLT 347 X1000 (130-400); RBC 3.22 XMIL (4.7-6.1); RDW 16.9 % (11.5-14.5); WBC 5.27 X1000 (4.8-10.8)
[2019-09-25 06:50] LABS: ALBUMIN 2.4 g/dL (3.5-5.0); CALCIUM 8.2 mg/dL (8.8-10.2); CREATININE 2.5 mg/dL (0.7-1.2); PHOSPHORUS 2.6 mg/dL (2.7-4.5); POTASSIUM 3.3 mmol/L (3.5-5.1)
[2019-09-25] MEDS: HUMULIN R SUBQ SCH ×4 (06:55→20:46)
[2019-09-25] MEDS: MULTAQ PO SCH ×2 (08:55→21:06)
[2019-09-25] MEDS: PROTONIX IV SCH ×2 (08:56→21:05)
[2019-09-25] MEDS: COREG PO SCH ×2 (08:56→21:06)
[2019-09-25] MEDS: ASPIRIN PO SCH (08:56)
[2019-09-25] MEDS: DULCOLAX PR SCH (08:56)
[2019-09-25] MEDS: SODIUM CHLORIDE 0.9% INJ SCH (08:56)
[2019-09-25] MEDS: ROCEPHIN 1 GM in NS 50 ML IV SCH (12:33)
--- NOTE | 2019-09-25 12:55 | CARDIOLOGY PROGRESS NOTE ---
DATE: 09/25/2019 CHIEF COMPLAINT: Irregular heartbeat, weakness. On admission, the chief complaint was abdominal pain post surgery. SUBJECTIVE: The patient is not having a whole lot of pain anywhere. His hands are swollen. He is very thirsty. He does not feel weak. He is not having chest pain. OBJECTIVE: Vital signs: Blood pressure is 124/66, temperature 97.7 degrees, pulse 78, respirations 18. General: He is a well-developed male sitting upright with an NG tube in place. The tube has been clamped. He is not in any distress. HEENT: Unremarkable. Chest: Sounds clear to auscultation and percussion. Heart: Sounds are regular and rhythmic, question of a systolic click on the left side of the sternum. There is also apical systolic murmur. Abdomen: Slightly distended, tender. Extremities: Showed no edema in the legs. The upper extremities actually show edema especially in the left hand. Neurologic exam: There is subtle weakness of the left upper extremity. BLOOD WORK: Today, sodium 149, potassium 3.3, BUN 41, creatinine 2.5. Albumin is 2.4. Hemoglobin 8.6. IMPRESSION: 1. Patient who presented with abdominal pain and a hematoma in the peritoneum. He is status post laparoscopic cholecystectomy. 2. Question of a right hemispheric transient ischemic attack. 3. History of paroxysmal atrial fibrillation. 4. History of mitral valve replacement for severe mitral regurgitation. 5. Nonischemic cardiomyopathy. No significant coronary heart disease per heart catheterization dated 03/09/2018. 6. Chronic kidney disease. 7. Hypernatremia with hypokalemia. RECOMMENDATIONS: At this time, I would suggest to withhold anticoagulation. He may need some free fluids to optimize his sodium. Cardiac-carrillo, I do not suggest any specific intervention. We will discuss with the Hospitalist team. cc: Tray Perez MD
--- NOTE | 2019-09-25 15:10 | PROGRESS NOTE ---
DATE: 09/25/2019 SUBJECTIVE: The patient seems to be stable. He is sitting up at the bed. His sodium level is high, so I will go ahead and put her on D5W. I will replace the potassium as well. OBJECTIVE: Vital Signs: Temperature 97.7 degrees, pulse 78, respiratory rate 18, blood pressure 124/66, oxygen saturation 100% on room air. HEENT: Head normocephalic, no trauma. PERRLA. Neck: Supple. No JVD. No masses. Central trachea. Chest: Decreased breath sounds at the bases, probably some rhonchi at the bases as well. Abdomen: Soft, is not tender. Positive bowel sounds but decreased. Extremities: No clubbing, no cyanosis. He does have some edema. Neurological: The patient is awake, alert. No weakness. LABORATORY: WBC 5.2, hemoglobin 8.6, hematocrit 26.9, platelets 347,000. Sodium 149, potassium 3.9, chloride 113, bicarbonate 22, BUN 41, creatinine 2.5, glucose 134, calcium 8.2, albumin 2.4. ASSESSMENT AND PLAN: 1. Acute blood loss anemia due to gastrointestinal bleed and hemoperitoneum after laparoscopic cholecystectomy. This patient has been monitored by Surgery Department. He has an intra- abdominal hematoma with ruptured subcapsular hematoma of the liver. On 09/16/2019 a laparoscopic with evacuation of intra-abdominal hematoma was performed. We will continue to monitor this patient closely. He has an NG tube that probably is going to be removed. We will continue to monitor. 2. Postoperative ileus and partial small bowel obstruction based on imaging and exam, seems to be resolving. Surgery Department on board. We will continue with the same management. 3. History of paroxysmal atrial fibrillation. At this moment, we are holding any kind of anticoagulation and will monitor. Cardiology Department on board. 4. History of nonischemic cardiomyopathy. Apparently this patient has no significant heart disease per heart catheterization on 03/09/2018. He does have a history of mitral valve replacement for severe mitral regurgitation. 5. Chronic kidney disease, stable. I do believe this is around his baseline. 6. Hypernatremia. I will give him some D5W and I will observe. 7. Hypothyroidism. Continue with Synthroid. 8. Peripheral vascular disease, stable. 9. Diabetes, seems to be stable as well. We will continue to monitor this patient closely. I will ask for a hemoglobin A1c in the morning. 10. Suspected acute proctitis. This patient had a leukocytosis during hospital admission and the CT scan done on September 14 showed the possibility of proctitis. He has been getting antibiotics since, I believe, 09/18/2019. We will just monitor for now, probably that resolved. cc: Isael Persaud MD
[2019-09-25] MEDS: POTASSIUM CHLORIDE 20 MEQ in D5W 1,000 ML IV SCH (16:49)
[2019-09-25] MEDS: LIPITOR PO SCH (21:06)
--- NOTE | 2019-09-25 21:18 | GENERAL SURGERY PROGRESS NOTE ---
DATE: 09/25/2019 SUBJECTIVE: The patient is feeling better. No severe pain. No nausea or vomiting. He has passed gas. His NG tube inadvertently came out. OBJECTIVE: He is afebrile. Vital signs are stable.General: He is awake, alert, no acute distress. Gastrointestinal: Soft, nontender, nondistended. ASSESSMENT AND PLAN: A 63-year-old male status post laparoscopic cholecystectomy with postoperative ileus. He seems to be improved. We will let him try a liquid diet tonight. cc: Adams Smith MD
[2019-09-26] MEDS: APRESOLINE PO SCH ×3 (05:52→21:11)
[2019-09-26] MEDS: CYTOMEL PO SCH ×3 (05:52→21:11)
[2019-09-26 06:06] LABS: CREATININE 2.1 mg/dL (0.7-1.2); POTASSIUM 3.3 mmol/L (3.5-5.1)
[2019-09-26] MEDS: SYNTHROID IV SCH (06:16)
[2019-09-26] MEDS: HUMULIN R SUBQ SCH ×4 (06:19→21:11)
[2019-09-26] MEDS: POTASSIUM CHLORIDE 20 MEQ in D5W 1,000 ML IV SCH ×3 (06:37→16:39)
[2019-09-26] MEDS ORDERED: POTASSIUM PHOSPHATE 15 MMOL in NS 250 ML IV ONE (08:21)
--- NOTE | 2019-09-26 08:46 | PROGRESS NOTE ---
DATE: 09/26/2019 SUBJECTIVE: The patient seems to be stable. His sodium level is much better after putting him on D5-W. His kidney function is getting better as well. BUN and creatinine are trending down. I will replace the potassium and the phosphorus today. Since now he is tolerating some liquid, I will decrease the rate of the D5-W and I reordered physical therapy and occupational therapy to evaluate this patient. OBJECTIVE: Vital Signs: Temperature 97.4 degrees, pulse 78, respiratory rate 18, blood pressure 131/64, oxygen saturation 99 on room air. HEENT: Head normocephalic. No trauma. PERRLA. Neck: Supple. No JVD. No masses. Central trachea. Chest: Decreased breath sounds at the bases. Probably some rhonchi at the bases as well. Abdomen: Soft and protuberant. Positive bowel sounds but decreased. Extremities: No edema, no clubbing, no cyanosis. Neurological Examination: The patient is awake. He is alert. No focal weakness. Laboratory: Sodium 144, potassium 3.3, chloride 110, bicarbonate 23, BUN 37, creatinine 2.1, glucose 172, calcium 8. ASSESSMENT AND PLAN: 1. Acute blood loss anemia due to gastrointestinal bleed and hemoperitoneum after laparoscopic cholecystectomy. This patient has been followed closely by the surgery department. The nasogastric tube had been removed yesterday. He is now on a liquid diet. He is having bowel movements. He had an intra-abdominal hematoma with rupture, subcapsular hematoma of the liver. On 09/16/2019, a laparoscopic with evacuation of intra-abdominal hematoma was performed. We will continue to monitor. 2. Postoperative ileus and partial small bowel obstruction, seems to be resolving. 3. History of paroxysmal atrial fibrillation. At this moment, we are holding any kind of anticoagulation per cardiology department. 4. History of nonischemic cardiomyopathy. Apparently, this patient has no significant heart disease per heart catheterization on 03/09/2019. He has a history of mitral valve replacement for severe mitral regurgitation. 5. Chronic kidney disease, stable. I think this is getting better, probably back to his baseline. 6. Hypernatremia, resolve. I will continue with a little bit of D5-W. He is tolerating liquids now. 7. Hypothyroidism. Continue with Synthroid. 8. Peripheral vascular disease, stable. 9. Diabetes, stable. Hemoglobin A1c is good at 7. 10. Suspected acute proctitis. He had a CT scan done on September 14 that showed the possibility of proctitis. He has been getting antibiotics seen 09/18/2019. I will just monitor and continue with the same management for now. Probably that is much better and/or resolved. cc: Isael Persaud MD
[2019-09-26] MEDS: FLAGYL 500 MG/NS 500 MG/100 ML IVPB IV SCH ×2 (08:56→16:38)
[2019-09-26] MEDS: SODIUM CHLORIDE 0.9% INJ SCH ×2 (08:56→21:11)
[2019-09-26] MEDS: MULTAQ PO SCH ×2 (08:56→21:11)
[2019-09-26] MEDS: COREG PO SCH ×2 (08:56→21:11)
[2019-09-26] MEDS: ASPIRIN PO SCH (08:56)
[2019-09-26] MEDS: PROTONIX IV SCH ×2 (08:56→21:11)
[2019-09-26] MEDS: DULCOLAX PR SCH (08:57)
[2019-09-26] MEDS: ROCEPHIN 1 GM in NS 50 ML IV SCH (12:10)
[2019-09-26] MEDS: PATIENT'S OWN MED PO SCH (21:11)
[2019-09-26] MEDS: LIPITOR PO SCH (21:11)
[2019-09-26] MEDS: ZOFRAN IV PRN (21:46)
[2019-09-27] MEDS: FLAGYL 500 MG/NS 500 MG/100 ML IVPB IV SCH ×3 (01:31→16:02)
[2019-09-27] MEDS: TYLENOL PO PRN (02:18)
--- NOTE | 2019-09-27 03:51 | GENERAL SURGERY PROGRESS NOTE ---
DATE: 09/26/2019 SUBJECTIVE: The patient is doing well today. No nausea, vomiting, fever or chills. He denies abdominal pain. He is tolerating a liquid diet and is passing gas. OBJECTIVE: Vital Signs: He is afebrile. Vital signs are stable. General: He is awake and alert. No acute distress. Gastrointestinal: Soft, nontender, nondistended. ASSESSMENT AND PLAN: A 63-year-old male with an ileus after a laparoscopic cholecystectomy. This appears to be resolving. We will advance his diet. cc: Adams Smith MD
[2019-09-27] MEDS: APRESOLINE PO SCH ×3 (05:59→21:29)
[2019-09-27] MEDS: CYTOMEL PO SCH ×3 (05:59→21:29)
[2019-09-27] MEDS: SYNTHROID IV SCH (05:59)
[2019-09-27] MEDS: HUMULIN R SUBQ SCH ×4 (06:35→21:26)
--- NOTE | 2019-09-27 06:41 | Diag Imaging Result Doc PS360 ---
CHEST-PORTABLE - 09/27/2019 INDICATION: dyspnea COMPARISON: 09/18/2019 FINDINGS: Stable pacemaker, valve replacement, and sternotomy wires. There is a right-sided PICC line in good position with the catheter tip at the cavoatrial junction. Lung volumes are low. No infiltrates or edema. No pneumothorax or pleural effusion. IMPRESSION: No acute disease or complication. Electronically signed by Casey Gamino 09/27/2019 6:39 AM
[2019-09-27 06:51] LABS: BASO# 0.01 X1000 (0.0-0.2); BASO% 0.2 % (0.0-0.8); EOS# 0.04 X1000 (0.0-0.7); EOS% 0.9 % (0.0-10.0); HEMATOCRIT 26.9 % (42.0-52.0); HEMOGLOBIN 8.6 g/dL (14.0-18.0); IMM GRAN# 0.04 X1000 (0.0-0.04); IMM GRAN% 0.9 % (0.0-0.5); LYMPH% 8.7 % (20.5-51.1); MCH 26.6 PG (27-31); MCV 83.3 FL (81-99); MONO# 0.94 X1000 (0.11-0.59); MONO% 20.4 % (1.7-9.3); MPV 9.6 FL (7.4-10.4); NEUT# 3.18 X1000 (1.4-6.5); NEUT% 68.9 % (42.2-75.2); PLT 321 X1000 (130-400); RBC 3.23 XMIL (4.7-6.1); RDW 17.1 % (11.5-14.5); WBC 4.61 X1000 (4.8-10.8)
[2019-09-27 07:20] LABS: CALCIUM 7.7 mg/dL (8.8-10.2); MAGNESIUM 1.8 mg/dL (1.5-2.7); PHOSPHORUS 2.3 mg/dL (2.7-4.5); POTASSIUM 3.8 mmol/L (3.5-5.1)
[2019-09-27] MEDS: SODIUM CHLORIDE 0.9% INJ SCH ×2 (08:22→21:29)
[2019-09-27] MEDS: PROTONIX IV SCH ×2 (08:22→21:29)
[2019-09-27] MEDS: ZAROXOLYN PO SCH (08:23)
[2019-09-27] MEDS: ASPIRIN PO SCH (08:23)
[2019-09-27] MEDS: MULTAQ PO SCH ×2 (08:23→21:29)
[2019-09-27] MEDS: ROCALTROL PO SCH (08:23)
[2019-09-27] MEDS: COREG PO SCH ×2 (08:23→21:29)
[2019-09-27] MEDS: DULCOLAX PR SCH (08:29)
--- NOTE | 2019-09-27 08:35 | PROGRESS NOTE ---
DATE: 09/27/2019 SUBJECTIVE: As per the patient, he was vomiting during the night at least 2 or 3 times. The is at the bedside. They state that he is not tolerating diet. My plan was to advance the diet today, but because of this, I will hold for now. I will continue with clear liquid diet. I did an x-ray that showed no acute disease or complication, no infiltrates or edema. OBJECTIVE: Vital Signs: Temperature 97.7 degrees, pulse 78, respiratory rate 15, blood pressure 135/62, oxygen saturation 98 on room air. HEENT: Head normocephalic. No trauma. PERRLA. Neck: Supple. No JVD. No masses. Central trachea. Chest: Decreased breath sounds at the bases with some crepitus bilaterally. Abdomen: Soft, protuberant. Positive bowel sounds. No signs of peritoneal irritation. Extremities: No edema, no clubbing, no cyanosis. Neurological: The patient is awake. He is alert. No focal weakness. LABORATORY DATA: WBC 4.6, hemoglobin 8.6, hematocrit 26.9, platelets 321,000. Sodium 143, potassium 3.8, chloride 112, bicarbonate 23, BUN 28, creatinine 2, glucose 286, calcium 7.7. Phosphorus 2.3, magnesium 1.8. ASSESSMENT AND PLAN: 1. Acute blood loss anemia due to gastrointestinal bleed and hemoperitoneum after laparoscopic cholecystectomy. He seems to be having problems keeping down the liquid diet. I will continue with that. He does have good bowel sounds, and he has been having bowel movements and passing gas. He had an intra-abdominal hematoma with rupture of the subcapsular hematoma of the liver on 09/16/2019. He had a laparoscopic evaluation with evacuation of intra- abdominal hematoma. 2. Postoperative ileus and partial small-bowel obstruction. Seems to be resolving. He is passing gas and having bowel movement, but he is having also vomiting. I will not advance the diet for now. I will continue with clear liquid diet. Surgery Department on board. 3. History of paroxysmal atrial fibrillation. At this moment, we are holding any kind of anticoagulation per Cardiology Department and recent bleed. 4. History of nonischemic cardiomyopathy. Apparently, he does not have any significant heart disease per heart catheterization on 03/09/2019. He has a history of mitral valve replacement for severe mitral regurgitation. 5. Chronic kidney disease, stable. BUN and creatinine are getting better, actually around his baseline. 6. Hypernatremia, resolved. 7. Hypothyroidism. Continue with Synthroid. 8. Peripheral vascular disease, stable. 9. Diabetes with a good hemoglobin A1c at 7. 10. Suspected acute proctitis. CT scan done on 09/15/2019 showed the possibility of proctitis. He has been getting antibiotics, I believe since 09/18/2019. Today is going to be day #10, so if that is the case, probably I will give him antibiotics today, and stop it tomorrow. cc: Isael Persaud MD
--- NOTE | 2019-09-27 08:44 | GENERAL SURGERY PROGRESS NOTE ---
DATE: 09/27/2019 SUBJECTIVE: Today he is afebrile, heart rate 78, blood pressure 135/62. He does report having some nausea and vomiting last night. His bowels have continued to move daily, however. DIAGNOSTICS: White count is 4600, hemoglobin 8.6, hematocrit 27, BUN is down to 28, creatinine is down to 2.0. ASSESSMENT: We will give him some Reglan; schedule Reglan to see if we can help his stomach empty so he can tolerate oral intake better. cc: Lebron Bee MD
[2019-09-27] MEDS: POTASSIUM CHLORIDE 20 MEQ in D5W 1,000 ML IV SCH (08:49)
[2019-09-27] MEDS: REGLAN IV SCH ×2 (08:49→16:02)
[2019-09-27] MEDS: ROCEPHIN 1 GM in NS 50 ML IV SCH (11:45)
[2019-09-27] MEDS: PATIENT'S OWN MED PO SCH (21:29)
[2019-09-27] MEDS: LIPITOR PO SCH (21:29)
[2019-09-28] MEDS: REGLAN IV SCH ×3 (00:18→15:48)
[2019-09-28] MEDS: FLAGYL 500 MG/NS 500 MG/100 ML IVPB IV SCH ×2 (00:18→08:31)
[2019-09-28] MEDS: POTASSIUM CHLORIDE 20 MEQ in D5W 1,000 ML IV SCH ×2 (00:18→11:29)
[2019-09-28] MEDS: SYNTHROID IV SCH ×2 (05:28→06:20)
[2019-09-28] MEDS: SODIUM CHLORIDE 0.9% INJ PRN (05:28)
[2019-09-28] MEDS: APRESOLINE PO SCH ×3 (05:28→21:08)
[2019-09-28] MEDS: CYTOMEL PO SCH ×3 (05:28→21:08)
[2019-09-28 06:26] LABS: CALCIUM 7.6 mg/dL (8.8-10.2); POTASSIUM 3.9 mmol/L (3.5-5.1)
[2019-09-28] MEDS: HUMULIN R SUBQ SCH ×4 (06:39→21:13)
--- NOTE | 2019-09-28 06:52 | GENERAL SURGERY PROGRESS NOTE ---
DATE: 09/28/2019 Mr. Marx says he slept well last night. His nausea is not an issue this morning. He is afebrile, heart rate 86, blood pressure 132/58. His labs continue to look okay with a BUN of 24, creatinine 2.0. He is receiving scheduled Reglan now, and will see if that will help his stomach emptying. cc: Lebron Bee MD
[2019-09-28] MEDS: ASPIRIN PO SCH (08:32)
[2019-09-28] MEDS: COREG PO SCH ×2 (08:32→21:09)
[2019-09-28] MEDS: MULTAQ PO SCH ×2 (08:32→21:08)
[2019-09-28] MEDS: PROTONIX IV SCH ×2 (08:32→21:09)
--- NOTE | 2019-09-28 10:02 | PROGRESS NOTE ---
DATE: 09/28/2019 SUBJECTIVE: No nausea or vomiting during the night. He seems to be tolerating liquid diet. Apparently he spent a good night. He is being evaluated by the surgery department. We will continue with same management for now. OBJECTIVE: Vital Signs: Temperature 97.8 degrees, pulse 78, respiratory rate 18, blood pressure 124/62, oxygen saturation 99 on room air. HEENT: Head normocephalic. No trauma. PERRLA. Neck: Supple. No JVD. No masses. Central trachea. Chest: Decreased breath sounds at the bases with some crepitus bilaterally. Abdomen: Soft, protuberant. Positive bowel sounds. No signs of peritoneal irritation. Extremities: No clubbing. No cyanosis. Trace edema. Neurological: The patient is awake. He is alert. No focal deficits. LABORATORY: Sodium 138, potassium 3.9, chloride 106, bicarbonate 24, BUN 24, creatinine 2, glucose 292, calcium 7.6. ASSESSMENT AND PLAN: 1. Acute blood loss anemia due to gastrointestinal bleed and hemoperitoneum after laparoscopic cholecystectomy. The patient had an intra-abdominal hematoma with rupture of the subcapsular hematoma of the liver on 09/16/2019 and he had a laparoscopic evaluation with evacuation of the intra-abdominal hematoma. 2. Postoperative ileus and partial small bowel obstruction, seems to be resolving. He is tolerating p.o. No nausea, no vomiting. He apparently spent a good night. 3. History of paroxysmal atrial fibrillation. At this moment, we are holding any kind of anticoagulation per Cardiology Department. 4. History of nonischemic cardiomyopathy. Apparently he does not have any significant heart disease per heart catheterization on 03/09/2019. He has a history of mitral valve replacement for severe mitral valve regurgitation. 5. Chronic kidney disease, stable. BUN and creatinine around baseline. 6. Hypernatremia, resolved. 7. Hypothyroidism. Continue with Synthroid. 8. Peripheral vascular disease, stable. 9. Diabetes with a good hemoglobin A1c at 7. 10. Suspected proctitis. CT scan done on 09/15/2019 showed the possibility of proctitis. He has been getting antibiotics since 09/18/2019. He received antibiotics yesterday. Since he received already 10 days of treatment, I will stop it today. cc: Isael Persaud MD
[2019-09-28] MEDS: DULCOLAX PR SCH (11:57)
[2019-09-28] MEDS: ZOFRAN IV PRN (18:51)
[2019-09-28] MEDS: LIPITOR PO SCH (21:08)
[2019-09-28] MEDS: SODIUM CHLORIDE 0.9% INJ SCH (21:09)
[2019-09-28] MEDS: PATIENT'S OWN MED PO SCH (21:09)
[2019-09-29] MEDS: REGLAN IV SCH ×4 (00:59→23:50)
[2019-09-29] MEDS: CYTOMEL PO SCH ×3 (05:26→21:01)
[2019-09-29] MEDS: APRESOLINE PO SCH ×3 (05:26→21:01)
[2019-09-29] MEDS: SODIUM CHLORIDE 0.9% INJ PRN (05:27)
[2019-09-29] MEDS: SYNTHROID IV SCH ×2 (05:27→06:20)
[2019-09-29] MEDS: HUMULIN R SUBQ SCH ×4 (06:20→21:11)
[2019-09-29 07:01] LABS: CALCIUM 7.5 mg/dL (8.8-10.2); CREATININE 2.2 mg/dL (0.7-1.2); POTASSIUM 3.9 mmol/L (3.5-5.1)
[2019-09-29] MEDS: ZOFRAN IV PRN ×2 (07:05→20:55)
[2019-09-29] MEDS: COREG PO SCH ×2 (09:02→20:54)
[2019-09-29] MEDS: ROCALTROL PO SCH (09:02)
[2019-09-29] MEDS: DULCOLAX PR SCH (09:02)
[2019-09-29] MEDS: PROTONIX IV SCH ×2 (09:03→20:55)
[2019-09-29] MEDS: MULTAQ PO SCH ×2 (09:03→20:57)
[2019-09-29] MEDS: ASPIRIN PO SCH (09:03)
--- NOTE | 2019-09-29 09:17 | PROGRESS NOTE ---
DATE: 09/29/2019 SUBJECTIVE: This patient has been having some nausea this morning. He is still on a liquid diet. He is still getting Reglan scheduled. He received a dose of Zofran today. He does have generalized weakness but he refused to go to a rehab center. He wants to go to home with home health. I will follow the recommendations of the surgery department. OBJECTIVE: Vital Signs: Temperature 98.3 degrees, pulse 79, respiratory rate 18, blood pressure 156/67 oxygen saturation 100% on room air. HEENT: Head normocephalic. No trauma. PERRLA. Neck: Supple. No JVD. No masses. Central trachea. Chest: Decreased breath sounds at the bases with some crepitus bilaterally. Abdomen: Soft, protuberant. Positive bowel sounds. No signs of peritoneal irritation. Extremities: No edema, no clubbing, no cyanosis. Neurological Examination: The patient is awake and alert. He is oriented x3. No focal deficits. Laboratory: Sodium 141, potassium 3.9, chloride 108, bicarbonate 23, BUN 22, creatinine 2.2, glucose 266, calcium 7.5. ASSESSMENT AND PLAN: 1. Acute blood loss anemia due to gastrointestinal bleed and hemoperitoneum after laparoscopic cholecystectomy. The patient had an intra-abdominal hematoma with rupture of the subcapsular hematoma of the liver. On 09/16/2019, he had a laparoscopic evaluation with evacuation of the intra-abdominal hematoma, complicated with postoperative ileus. Surgery on board. 2. Postoperative ileus and partial small bowel obstruction, seems to be resolving. He is complaining of some nausea today. He has been placed on a liquid diet. I will follow the recommendations of cardiology department. 3. History of paroxysmal atrial fibrillation. At this moment, we are holding any kind of anticoagulation. He is on aspirin. 4. History of nonischemic cardiomyopathy. Apparently, this patient does not have any significant heart disease per cardiac catheterization on 03/09/2019. He has a history of mitral valve replacement for severe mitral valve regurgitation. 5. History of mitral valve replacement, as above. 6. Chronic kidney disease, stable. This is his baseline. 7. Hypernatremia, resolved. 8. Hypothyroidism. Continue with Synthroid. 9. Peripheral vascular disease, stable. 10. Diabetes with good hemoglobin A1c at 7. Continue with the same management. 11. Suspected proctitis. He already received antibiotics for this and he is having bowel movements. cc: Isael Persaud MD
--- NOTE | 2019-09-29 09:34 | GENERAL SURGERY PROGRESS NOTE ---
DATE: 09/29/2019 Mr. Marx seems to be tolerating his liquids satisfactorily. He has had a little bit of nausea. He continues to pass flatus and have bowel movements. Hopefully, we can advance his diet within the next 24 hours if he tolerates it. cc: Lebron Bee MD
[2019-09-29] MEDS: CLINIMIX E 4.25%-5% SOLUTION 1,000 ML IV SCH (11:30)
[2019-09-29] MEDS: POTASSIUM CHLORIDE 20 MEQ in D5W 1,000 ML IV SCH (11:31)
[2019-09-29] MEDS: LIPITOR PO SCH (20:54)
[2019-09-29] MEDS: SODIUM CHLORIDE 0.9% INJ SCH (20:55)
[2019-09-29] MEDS: PATIENT'S OWN MED PO SCH (20:57)
[2019-09-30] MEDS: APRESOLINE PO SCH ×3 (05:37→21:38)
[2019-09-30] MEDS: CYTOMEL PO SCH (05:37)
[2019-09-30] MEDS: CLINIMIX E 4.25%-5% SOLUTION 1,000 ML IV SCH (05:39)
[2019-09-30] MEDS: SODIUM CHLORIDE 0.9% INJ PRN (05:43)
[2019-09-30] MEDS: SYNTHROID IV SCH ×2 (05:52→06:00)
[2019-09-30 06:10] LABS: BASO# 0.02 X1000 (0.0-0.2); BASO% 0.4 % (0.0-0.8); EOS# 0.04 X1000 (0.0-0.7); EOS% 0.7 % (0.0-10.0); HEMATOCRIT 25.4 % (42.0-52.0); HEMOGLOBIN 8.1 g/dL (14.0-18.0); IMM GRAN# 0.04 X1000 (0.0-0.04); IMM GRAN% 0.7 % (0.0-0.5); LYMPH# 0.53 X1000 (1.2-3.4); LYMPH% 9.3 % (20.5-51.1); MCH 26.5 PG (27-31); MCHC 31.9 g/dL (33-37); MONO# 0.96 X1000 (0.11-0.59); MONO% 16.9 % (1.7-9.3); MPV 9.4 FL (7.4-10.4); PLT 370 X1000 (130-400); RBC 3.06 XMIL (4.7-6.1); RDW 16.5 % (11.5-14.5); WBC 5.69 X1000 (4.8-10.8)
[2019-09-30] MEDS: HUMULIN R SUBQ SCH ×4 (06:17→21:31)
[2019-09-30 06:27] LABS: CALCIUM 7.8 mg/dL (8.8-10.2); CREATININE 2.2 mg/dL (0.7-1.2); POTASSIUM 3.9 mmol/L (3.5-5.1)
[2019-09-30] MEDS: ASPIRIN PO SCH (09:08)
[2019-09-30] MEDS: REGLAN IV SCH ×2 (09:08→16:12)
[2019-09-30] MEDS: LASIX PO SCH (09:08)
[2019-09-30] MEDS: SODIUM CHLORIDE 0.9% INJ SCH (09:08)
[2019-09-30] MEDS: MULTAQ PO SCH ×2 (09:08→21:29)
[2019-09-30] MEDS: PROTONIX IV SCH ×2 (09:08→21:28)
[2019-09-30] MEDS: COREG PO SCH ×2 (09:08→21:29)
[2019-09-30] MEDS: DULCOLAX PR SCH (09:19)
--- NOTE | 2019-09-30 11:34 | PROGRESS NOTE ---
DATE: 09/30/2019 SUBJECTIVE: It looks like this patient had a little bit of nausea during the night but today, he is feeling better. We will continue with the same management. I will transfer this patient to the floor since he seems to be stable. I will keep an eye on him. I will stop the IV levothyroxine and I will put him on p.o. treatment. I will start with Synthroid 150 mcg daily. OBJECTIVE: Vital Signs: Temperature 98 degrees, pulse 86, respiratory rate 18, blood pressure 169/74, oxygen saturation 97% on room air. HEENT: Head normocephalic. No trauma. PERRLA. Neck: Supple. No JVD. No masses. Central trachea. Chest: Decreased breath sounds at the bases with some crepitus bilaterally. Abdomen: Soft, protuberant. Positive bowel sounds. No signs of peritoneal irritation. Extremities: No edema, no clubbing no cyanosis. Neurological Examination: The patient is awake and alert. He is oriented x3. No focal neurological deficit but generalized weakness. Laboratory: WBC 5.6, hemoglobin 8.1, hematocrit 25.4, platelets 370,000. Sodium 136, potassium 3.9, chloride 104, bicarbonate 25, BUN 22, creatinine 2.2, glucose 213, calcium 7.8. ASSESSMENT AND PLAN: 1. Acute blood loss anemia due to gastrointestinal bleed and hemoperitoneum after laparoscopic cholecystectomy. The patient had an intra-abdominal hematoma with rupture of the subcapsular hematoma of the liver. On 09/16/2019, he had a laparoscopic evaluation with evacuation of the hematoma, complicated with postoperative ileus. This seems to be getting better. He been tolerating a little bit of fluids by mouth with some nausea yesterday night. 2. Postoperative ileus and partial small bowel obstruction, seems to be resolving slowly. He is tolerating some liquids today. 3. History of paroxysmal atrial fibrillation. At this moment, we are holding any kind of anticoagulation. He is on aspirin. 4. History of nonischemic cardiomyopathy. Apparently, this patient does not have any significant heart disease per cardiac catheterization on 03/09/2019. 5. History of mitral valve replacement, as above. 6. Chronic kidney disease, stable. This is his baseline. 7. Hypernatremia, resolved. 8. Hypothyroidism. He has been on intravenous levothyroxine which I switched to oral since he has been tolerating more treatment by mouth. 9. Peripheral vascular disease, stable. 10. Diabetes with good hemoglobin A1c at 7. Continue with the same management. 11. Suspected proctitis, already treated. cc: Isael Persaud MD
--- NOTE | 2019-09-30 17:12 | GENERAL SURGERY PROGRESS NOTE ---
DATE: 09/30/2019 Mr. Marx seems fine. He is afebrile with stable hemodynamics. His abdomen is soft and nontender. He continues to pass flatus and bowel movements. I will advance his diet tomorrow to solids. cc: Lebron Bee MD
[2019-09-30] MEDS: ZOFRAN IV PRN (21:28)
[2019-09-30] MEDS: LIPITOR PO SCH (21:28)
[2019-09-30] MEDS: PATIENT'S OWN MED PO SCH (21:29)
[2019-10-01] MEDS: REGLAN IV SCH ×3 (01:50→16:55)
[2019-10-01] MEDS: CLINIMIX E 4.25%-5% SOLUTION 1,000 ML IV SCH ×2 (01:50→19:44)
[2019-10-01] MEDS: APRESOLINE PO SCH ×3 (06:20→22:16)
[2019-10-01] MEDS: SYNTHROID PO SCH (06:20)
[2019-10-01] MEDS: HUMULIN R SUBQ SCH ×4 (06:28→22:14)
[2019-10-01 07:36] LABS: CALCIUM 8.4 mg/dL (8.8-10.2); CREATININE 1.9 mg/dL (0.7-1.2); POTASSIUM 4.4 mmol/L (3.5-5.1)
[2019-10-01] MEDS: ZOFRAN IV PRN ×3 (07:50→22:14)
[2019-10-01] MEDS: ASPIRIN PO SCH (08:24)
[2019-10-01] MEDS: LASIX PO SCH (08:24)
[2019-10-01] MEDS: ROCALTROL PO SCH (08:24)
[2019-10-01] MEDS: COREG PO SCH ×2 (08:25→22:16)
[2019-10-01] MEDS: DULCOLAX PR SCH ×2 (08:25→08:37)
[2019-10-01] MEDS: MULTAQ PO SCH ×2 (08:25→22:16)
[2019-10-01] MEDS: PROTONIX IV SCH ×2 (08:25→22:15)
[2019-10-01] MEDS: LANTUS INSULIN SUBQ SCH (08:45)
--- NOTE | 2019-10-01 12:49 | PROGRESS NOTE ---
DATE: 10/01/2019 SUBJECTIVE: The patient seems to be more stable. I evaluated this patient in the morning and he tolerated his food. I recommended more physical activity. I will continue with the same management. I will put him on Lantus 15 because his blood sugar has been high and monitor, but I want this patient to go home with his home medications because it seems to be working fine for him. TSH is trending down. Initially was around 81 and now is 24, we will monitor, and he needs to follow this up as an outpatient. OBJECTIVE: Vital signs: Temperature 97.6 degrees, pulse 81, respiratory rate 24, blood pressure 152/76, oxygen saturation 98 on room air. HEENT: Head normocephalic, no trauma. PERRLA. Neck: Supple. No JVD. No masses. Central trachea. Chest: Decreased breath sounds at the bases with some crepitus bilaterally. Abdomen: Soft, protuberant. Positive bowel sounds. No signs of peritoneal irritation. Extremities: No edema, no clubbing, no cyanosis. Neurological: The patient is awake, alert. He does have generalized weakness. No focal deficits. LABORATORY DATA: Sodium 134, potassium 4.4, chloride 99, bicarbonate 24, BUN 21, creatinine 1.9, glucose in the morning 335, now 219, calcium 8.4. TSH 24.5. ASSESSMENT AND PLAN: 1. Acute blood loss anemia due to gastrointestinal bleed and hemoperitoneum after laparoscopic cholecystectomy. Patient had an intra-abdominal hematoma with rupture of the subcapsular hematoma of the liver on 09/16/2019. He had a laparoscopic evaluation with evacuation of the hematoma. 2. Postoperative ileus and partial small-bowel obstruction, seems to be much better. He is tolerating diet today. Let us see how he does. 3. History of paroxysmal atrial fibrillation. At this moment, we are holding any kind of anticoagulation. He is on aspirin. 4. History of nonischemic cardiomyopathy. Apparently the patient does not have any significant heart disease per cardiac catheterization on 03/09/2019. 5. History of mitral valve replacement, aware. 6. Chronic kidney disease, stable. This is his baseline. 7. Hypernatremia, resolved. 8. Hypothyroidism. Continue with p.o. treatment. He needs to monitor the TSH in a few weeks, at least 6. 9. Peripheral vascular disease, stable. 10. Diabetes with a good hemoglobin A1c. At this moment, he is on Lantus but upon discharge, he will need to be back on his home medications. 11. Suspected proctitis, already treated with antibiotics. cc: Isael Persaud MD
--- NOTE | 2019-10-01 13:58 | GENERAL SURGERY PROGRESS NOTE ---
DATE: 10/01/2019 Mr. Marx seems to be better. He is afebrile with satisfactory hemodynamics. He tolerated his food today, denies any nausea. His lab work continues to improve with his BUN and creatinine down to even baseline or better. Sugars remain a little high. He is already on a diabetic diet. cc: Lebron Bee MD
[2019-10-01] MEDS: SODIUM CHLORIDE 0.9% INJ SCH (22:15)
[2019-10-01] MEDS: PATIENT'S OWN MED PO SCH (22:16)
[2019-10-01] MEDS: TYLENOL PO PRN (22:17)
[2019-10-01] MEDS: LIPITOR PO SCH (22:17)
[2019-10-02] MEDS: ZOFRAN IV PRN ×3 (03:13→20:57)
[2019-10-02] MEDS: REGLAN IV SCH ×3 (06:16→23:50)
[2019-10-02] MEDS: SYNTHROID PO SCH (06:16)
[2019-10-02] MEDS: APRESOLINE PO SCH ×3 (06:22→23:50)
[2019-10-02] MEDS: HUMULIN R SUBQ SCH ×4 (06:53→23:22)
[2019-10-02 07:23] LABS: CALCIUM 8.3 mg/dL (8.8-10.2); CREATININE 1.9 mg/dL (0.7-1.2); POTASSIUM 3.6 mmol/L (3.5-5.1)
[2019-10-02] MEDS: SODIUM CHLORIDE 0.9% INJ SCH ×2 (10:47→23:49)
[2019-10-02] MEDS: ASPIRIN PO SCH (10:47)
[2019-10-02] MEDS: PROTONIX IV SCH ×2 (10:47→23:49)
[2019-10-02] MEDS: MULTAQ PO SCH ×2 (10:47→23:50)
[2019-10-02] MEDS: COREG PO SCH ×2 (10:48→23:50)
[2019-10-02] MEDS: DULCOLAX PR SCH (10:48)
[2019-10-02] MEDS: LASIX PO SCH (10:48)
[2019-10-02] MEDS: LANTUS INSULIN SUBQ SCH (10:49)
--- NOTE | 2019-10-02 11:40 | PROGRESS NOTE ---
DATE: 10/02/2019 SUBJECTIVE: The patient seems to be stable. I will continue with insulin. Some nausea yesterday night. Surgery Department on board. I will wait for final recommendations. OBJECTIVE: Vital Signs: Temperature 98.7 degrees, pulse 83, respiratory rate 16, blood pressure 164/71, oxygen saturation 98 on room air. HEENT: Head normocephalic, no trauma. PERRLA. Neck: Supple. No JVD. No masses. Central trachea. Chest: Decreased breath sounds at the bases with some crepitus bilaterally. Abdomen: Soft, protuberant. Positive bowel sounds. No signs of peritoneal irritation. Extremities: No edema, no clubbing, no cyanosis. Neurological: Patient is awake, alert. He does have generalized weakness but no focal deficits. LABORATORY DATA: Sodium 136, potassium 3.6, chloride 101, bicarbonate 26, BUN 24, creatinine 1.9, glucose 178, calcium 8.3. ASSESSMENT AND PLAN: 1. Acute blood loss anemia due to gastrointestinal bleed and hemoperitoneum after laparoscopic cholecystectomy. He had an intra-abdominal hematoma with rupture of the subcapsular hematoma of the liver. On 09/16/2019, he had a laparoscopic evaluation with evacuation of the hematoma. 2. Postoperative ileus and partial small-bowel obstruction, seems to be resolved. He is still having some nausea though. 3. Nausea and vomiting. He is still having some nausea, especially yesterday night. 4. History of paroxysmal atrial fibrillation. At this moment, we are holding any kind of anticoagulation due to his previous bleeding. He is on aspirin though. 5. History of nonischemic cardiomyopathy. Apparently, this patient does not have any significant heart disease per cardiac catheterization on 03/09/2019. 6. History of mitral valve replacement, aware. 7. Chronic kidney disease, stable. This is his baseline. 8. Hypernatremia, resolved. 9. Hypothyroidism. Continue with p.o. treatment. 10. Peripheral vascular disease, stable. 11. Diabetes with a good hemoglobin A1c. At this moment he is on Lantus but upon discharge, he will go back to his home medications. 12. Suspected prox proctitis, already treated with antibiotics. Overall, this patient is doing much better. He is still complaining of some nausea. I will wait for Surgery Department to evaluate this patient. Probably this patient can be discharged in the next 24 to 48 hours. cc: Isael Persaud MD
--- NOTE | 2019-10-02 15:58 | GENERAL SURGERY PROGRESS NOTE ---
DATE: 10/02/2019 SUBJECTIVE: He is having some bowel function. He was given a suppository. No fevers. No tachycardia. Blood pressure 164/71. General, he is alert. Cardiovascular normal rate. Abdomen is soft. Incisions are intact. I reviewed his labs. Creatinine is 1.9. His potassium is 3.6, glucose will fluctuate but remained occasionally in 300s. ASSESSMENT/PLAN: 63-year-old gentleman with ileus. He had a bleed after cholecystectomy related to anticoagulation. This was evacuated, but he has had a protracted ileus that seems to be resolving. We will continue to follow along. He is on nutritional support peripherally. cc: Daisy Dang MD
[2019-10-02] MEDS: CLINIMIX E 4.25%-5% SOLUTION 1,000 ML IV SCH (17:10)
[2019-10-02] MEDS: PATIENT'S OWN MED PO SCH (21:00)
[2019-10-02] MEDS: LIPITOR PO SCH (23:50)
[2019-10-03] MEDS: ZOFRAN IV PRN ×3 (04:30→19:34)
[2019-10-03] MEDS: APRESOLINE PO SCH ×3 (06:24→21:28)
[2019-10-03] MEDS: SYNTHROID PO SCH (06:24)
[2019-10-03] MEDS: HUMULIN R SUBQ SCH ×4 (06:25→20:59)
[2019-10-03 06:57] LABS: HEMATOCRIT 24.5 % (42.0-52.0)
[2019-10-03 07:25] LABS: CALCIUM 8.3 mg/dL (8.8-10.2); CREATININE 2.2 mg/dL (0.7-1.2); POTASSIUM 3.7 mmol/L (3.5-5.1)
[2019-10-03] MEDS: REGLAN IV SCH ×3 (07:31→21:28)
[2019-10-03] MEDS: PROTONIX IV SCH ×2 (10:37→21:28)
[2019-10-03] MEDS: COREG PO SCH ×2 (10:37→21:28)
[2019-10-03] MEDS: SODIUM CHLORIDE 0.9% INJ SCH ×2 (10:37→21:28)
[2019-10-03] MEDS: MULTAQ PO SCH ×2 (10:37→21:29)
[2019-10-03] MEDS: LASIX PO SCH (10:37)
[2019-10-03] MEDS: ASPIRIN PO SCH (10:37)
[2019-10-03] MEDS: DULCOLAX PR SCH (10:38)
[2019-10-03] MEDS: LANTUS INSULIN SUBQ SCH (10:38)
--- NOTE | 2019-10-03 12:00 | PROGRESS NOTE ---
DATE: 10/03/2019 SUBJECTIVE: The patient seems to be stable. He is still having nausea, positive bowel movements. He is tolerating a little bit of food on and off. PHYSICAL EXAMINATION: Vital Signs: Temperature 97.9 degrees, pulse 85, respiratory rate 16, blood pressure 142/67, oxygen saturation 96 on room air. HEENT: Head normocephalic. No trauma. PERRLA. Neck: Supple. No JVD. No masses. Central trachea. Chest: Decreased breath sounds at the bases, with some crepitus bilaterally. Abdomen: Soft, protuberant. Positive bowel sounds. No signs of peritoneal irritation. Extremities: No edema, no clubbing, no cyanosis. Neurological: Awake, alert. He does have generalized weakness. LABORATORY DATA: Hemoglobin 8, hematocrit 24.5. Sodium 137, potassium 3.7, chloride 97, bicarbonate 26, BUN 24, creatinine 2.2, glucose 160, calcium 8.3. ASSESSMENT AND PLAN: 1. Acute blood loss anemia due to gastrointestinal bleed and hemoperitoneum after laparoscopic cholecystectomy. He had an intra-abdominal hematoma with rupture of the subcapsular hematoma of the liver. On 09/16/2019, he had a laparoscopic evaluation with evacuation of the hematoma. 2. Postoperative ileus and partial small-bowel obstruction. He seems to be much better. 3. Nausea, but no vomiting. He is still having nausea, mostly in the afternoon. Continue with the same management. 4. History of paroxysmal atrial fibrillation. At this moment, we are holding any kind of anticoagulation due to his previous bleeding. 5. History of nonischemic cardiomyopathy. Apparently, he does not have any significant heart disease per cardiac catheterization on 03/09/2019. 6. History of mitral valve replacement, aware. 7. Chronic kidney disease, stable. 8. Hyponatremia, resolved. 9. Hypothyroidism. Continue with oral treatment. 10. Peripheral vascular disease, stable. 11. Diabetes with a good hemoglobin A1c. At this moment, he is on Lantus, but upon discharge, he will go back to his home medications. 12. Suspected proctitis, already treated with intravenous antibiotics. Overall, he is doing better. He is still complaining of nausea on and off, mostly in the afternoon. Will continue with the same management. Once Surgery Department states that he is good to go home, I will discharge the patient. cc: Isael Persaud MD
--- NOTE | 2019-10-03 12:30 | GENERAL SURGERY PROGRESS NOTE ---
DATE: 10/03/2019 SUBJECTIVE: He had a bowel movement yesterday. He is tolerating p.o. No abdominal pain. No fevers. No tachycardia. His abdomen is soft, nontender, nondistended. Incisions are intact. LABORATORY DATA: I have reviewed his labs. Hematocrit is 24. His creatinine is 3.7. ASSESSMENT AND PLAN: A 63-year-old gentleman with ileus, prolonged hospital course. I think he is doing well clinically, and I suspect he will be ready to go home in the near future. Will defer final disposition to Dr. Bee when he returns tomorrow. cc: Daisy Dang MD
[2019-10-03] MEDS: CLINIMIX E 4.25%-5% SOLUTION 1,000 ML IV SCH (19:08)
[2019-10-03] MEDS: LIPITOR PO SCH (21:28)
[2019-10-03] MEDS: PATIENT'S OWN MED PO SCH (21:28)
[2019-10-04] MEDS: REGLAN IV SCH (06:03)
[2019-10-04] MEDS: SYNTHROID PO SCH (06:03)
[2019-10-04] MEDS: HUMULIN R SUBQ SCH ×4 (06:03→20:36)
[2019-10-04] MEDS: APRESOLINE PO SCH ×3 (06:03→23:42)
[2019-10-04 07:06] LABS: HEMATOCRIT 24.1 % (42.0-52.0); HEMOGLOBIN 7.7 g/dL (14.0-18.0)
--- NOTE | 2019-10-04 07:09 | GENERAL SURGERY PROGRESS NOTE ---
DATE: 10/04/2019 Mr. Marx is tolerating solid food. His bowels continue to move. I will switch him to Reglan by mouth. We will get an upper GI with small-bowel follow-through to show his gut transit. cc: Lebron Bee MD
[2019-10-04 07:26] LABS: CREATININE 2.3 mg/dL (0.7-1.2); POTASSIUM 3.8 mmol/L (3.5-5.1)
--- NOTE | 2019-10-04 13:18 | Diag Imaging Result Doc PS360 ---
EXAM: GI/SW/SM BOWEL 10/04/2019 HISTORY: post prandial nausea TECHNIQUE: Air contrast upper GI series and small bowel follow-through, 24 images, 4531.6 cGy, three minutes 18 seconds fluoroscopy time. COMMENT: The patient is able to swallow barium without difficulty. There is some tertiary contractions in the distal two thirds of the esophagus and there is a small sliding hiatal hernia with reflux to the upper thoracic esophagus. The stomach is grossly normal in appearance although the study is somewhat suboptimal due to the patient's clinical condition and difficulty in positioning. Stomach empties promptly. The duodenal bulb and the remainder of the duodenum are normal in appearance. There is some barium in the ascending colon at three hours. There is no evidence of tenderness to palpation and the terminal ileum is normal in appearance. IMPRESSION: Presbyesophagus, hiatal hernia, and reflux. No evidence of small bowel obstruction. Electronically signed by Howard Valenzuela 10/04/2019 1:15 PM
[2019-10-04] MEDS: CLINIMIX E 4.25%-5% SOLUTION 1,000 ML IV SCH ×2 (13:25→20:34)
[2019-10-04] MEDS: LANTUS INSULIN SUBQ SCH (13:33)
[2019-10-04] MEDS: DULCOLAX PR SCH (13:33)
[2019-10-04] MEDS: PROTONIX IV SCH ×2 (13:34→20:35)
[2019-10-04] MEDS: SODIUM CHLORIDE 0.9% INJ SCH ×2 (13:34→20:35)
[2019-10-04] MEDS: REGLAN PO SCH ×2 (14:18→15:59)
[2019-10-04] MEDS: COREG PO SCH ×2 (14:18→20:34)
[2019-10-04] MEDS: LASIX PO SCH (14:18)
[2019-10-04] MEDS: ROCALTROL PO SCH (14:18)
[2019-10-04] MEDS: MULTAQ PO SCH ×2 (14:19→23:42)
[2019-10-04] MEDS: ASPIRIN PO SCH (14:19)
[2019-10-04] MEDS ORDERED: LIORESAL PO PRN (15:00)
[2019-10-04] MEDS ORDERED: NS 500 ML IV SCH (15:15)
--- NOTE | 2019-10-04 15:27 | PROGRESS NOTE ---
DATE: 10/04/2019 SUBJECTIVE: Patient is lying comfortably in bed. He is not complaining of any specific pain, he is complaining of hiccups, even though he has been getting Reglan. I will add a little bit of baclofen to see if that can help. Vital signs are stable. We did an upper GI small bowel study with no evidence of obstruction. PHYSICAL EXAMINATION: Vital Signs: Temperature 98.1 degrees, pulse 80, respiratory rate 20, blood pressure 165/77, oxygen saturation 97% on room air. HEENT: Head normocephalic. No trauma. PERRLA. Neck: Supple. No JVD. No masses. Central trachea. Chest: Decreased breath sounds at the bases with some crepitus. Abdomen: Soft, nontender, nondistended. Positive bowel sounds. No signs of peritoneal irritation. Extremities: No edema, no clubbing, no cyanosis. Neurological: The patient is awake, alert. He does have generalized weakness. LABORATORY: Hemoglobin 7.7, hematocrit 24.1. Sodium 129, potassium 3.8, chloride 93, bicarbonate 25, BUN 27, creatinine 2.3, glucose 180, calcium 8. ASSESSMENT AND PLAN: 1. Acute blood loss anemia due to gastrointestinal bleeding and hemoperitoneum after laparoscopic cholecystectomy where an intra-abdominal hematoma with rupture of the subcapsular hematoma of the liver. On 09/16/2019, he had a laparoscopic evaluation with evacuation of the hematoma. 2. Postoperative ileus and partial small bowel obstruction, likely resolved. 3. Diarrhea/loose stools. I will ask for Clostridium difficile to rule out colitis. 4. History of paroxysmal atrial fibrillation. At this moment, we are holding any kind of anticoagulation due to bleeding. 5. Nausea, but no vomiting, continue with Reglan. 6. History of mitral valve replacement, aware. 7. Chronic kidney disease, stable. 8. Hyponatremia, he is slightly hyponatremic today. I will give him a little bit of normal saline x1. 9. Hypothyroidism. Continue with oral treatment. 10. Peripheral vascular disease, stable. 11. Diabetes with a good hemoglobin A1c at 7. At this moment, he is on Lantus but upon discharge, I want this patient to go back to his home medications. 12. Suspected proctitis upon admission, status post antibiotics. 13. Hiccups. I will try baclofen to try to help him out. PLAN: Overall this patient is doing better. He will receive a bit of fluids. We did a bowel study that did not show any obstruction. I will wait for Surgery department. Probably, this patient will be discharged in the next 24 to 48 hours. cc: Isael Persaud MD
[2019-10-04] MEDS ORDERED: NS 500 ML ONE (15:56)
--- NOTE | 2019-10-04 17:47 | GENERAL SURGERY PROGRESS NOTE ---
DATE: 10/04/2019 Mr. Marx is doing generally well. His small bowel follow-through today was normal with no evidence of obstruction. He does have some reflux which probably contributes to his nausea and vomiting. From my perspective he could be discharged tomorrow, the , if he continues satisfactory. cc: Lebron Bee MD
[2019-10-04] MEDS: LIPITOR PO SCH (20:34)
[2019-10-04] MEDS: PATIENT'S OWN MED PO SCH (23:43)
[2019-10-05 06:24] LABS: HEMATOCRIT 23.7 % (42.0-52.0); HEMOGLOBIN 7.5 g/dL (14.0-18.0)
[2019-10-05] MEDS: CLINIMIX E 4.25%-5% SOLUTION 1,000 ML IV SCH (06:34)
[2019-10-05] MEDS: HUMULIN R SUBQ SCH (06:34)
[2019-10-05] MEDS: APRESOLINE PO SCH (06:34)
[2019-10-05] MEDS: SYNTHROID PO SCH (06:34)
[2019-10-05] MEDS: REGLAN PO SCH (06:34)
[2019-10-05 06:40] LABS: CALCIUM 8.2 mg/dL (8.8-10.2); CREATININE 2.2 mg/dL (0.7-1.2); POTASSIUM 3.9 mmol/L (3.5-5.1)
[2019-10-05 07:39] VITALS: BP 137/64
[2019-10-05] MEDS: COREG PO SCH (08:23)
[2019-10-05] MEDS: ASPIRIN PO SCH (08:23)
[2019-10-05] MEDS: SODIUM CHLORIDE 0.9% INJ SCH (08:24)
[2019-10-05] MEDS: MULTAQ PO SCH (08:24)
[2019-10-05] MEDS: LANTUS INSULIN SUBQ SCH (08:24)
[2019-10-05] MEDS: LASIX PO SCH (08:25)
[2019-10-05] MEDS: PROTONIX IV SCH (08:25)
[2019-10-05] MEDS: DULCOLAX PR SCH (08:25)
--- NOTE | 2019-10-05 13:00 | DISCHARGE SUMMARY ---
ADMISSION DATE: 09/08/2019 DISCHARGE DATE: 10/05/2019 ADMISSION DIAGNOSES: 1. Hemoperitoneum. 2. Symptomatic anemia. 3. Chronic anticoagulation related to history of paroxysmal atrial fibrillation, and mitral valve replacement. 4. Coronary artery disease with history of coronary artery bypass grafting and stents. 5. Acute on chronic kidney disease. 6. Diabetes mellitus type 2. 7. Hypertension. 8. Hypothyroidism. DISCHARGE DIAGNOSES: 1. Acute blood loss anemia secondary to gastrointestinal bleeding and hemoperitoneum after laparoscopic cholecystectomy where an intra-abdominal hematoma and rupture of subscapular hematoma of the liver on 09/16/2019. He had to have a laparoscopic evaluation with evacuation of the hematoma. 2. Postoperative ileus, and partial small bowel obstruction which is likely resolved. 3. Stools not collected yet, but they have turned soften and there is no evidence of elevated white blood cell count. 4. History of paroxysmal atrial fibrillation. Anticoagulation is currently being held secondary to the recent bleed. 5. Nausea, but no vomiting. 6. History of mitral valve replacement. 7. Chronic kidney disease is stable. 8. Hyponatremia, improved. 9. Hypothyroidism. 10. Peripheral vascular disease, stable. 11. Diabetes mellitus type 2 with a hemoglobin and A1c of 7.0 Lantus. 12. He had suspected proctitis upon admission, and is now status post antibiotics for that. 13. Hiccups. SURGERIES AND PROCEDURES: 1. On 09/16/2019, laparoscopic evaluation and evacuation of intra-abdominal hematoma for hemoperitoneum. 2. On 09/10/2019, it looks like he had an EGD performed by Dr. Arthur, and what was found was mild reflux esophagitis in the distal esophagus. There were 2 polyps found in the gastric body. Those were removed with snare cautery. Otherwise, stomach was normal. CONSULTATIONS: 1. Dr. Arthur. 2. Dr. Orlando for hypothyroidism and amiodarone anticoagulation management. 3. Dr. Lebron Bee for hemoperitoneum. 4. Dr. Thompson for possible CVA. 5. Physical Therapy. 6. Occupational Therapy. 7. PICC line placement. HOSPITAL COURSE: On 09/08/2019, Mr. Isaias Marx is a 63-year-old male who recently underwent laparoscopic cholecystectomy with Dr. Bee on 09/02. It was performed as an outpatient therapy. He has been on Eliquis for atrial fibrillation, and mitral valve replacement,. On the the day prior to presenting to [facility], he resumed his Eliquis post surgery. Since then, he started having some abdominal pain, and had become worse since taking the Eliquis, and progressively got worse. It would radiate from the right side of his abdomen all the way to the left and around to his back, aching and cramping with nausea and vomiting. He did admit to having some tarry stools the morning he presented. He had been feeling dizzy and fatigued. His hemoglobin and hematocrit was found to be 6.8 and 20.5. He had some acute kidney injury on chronic kidney disease, and the creatinine had jumped up to a 5.6. CT performed showed hematoma formation adjacent to the gallbladder fossa with free blood in the pelvis. Fluid at the right subphrenic space that was also likely blood. Dr. Dang with General Surgery was consulted, and also Dr. Bee. He was placed NPO, and was given blood products including packed red blood cells and FFP. He was given Kcentra to help reverse the Eliquis, and was transferred to [facility]. Also, he was consulted with Gastroenterology, and on the Dr. Arthur did the EGD where he cauterized and snared 2 gastric body polyps, and was sent to Pathology. All anticoagulants were held. They continued the amiodarone, and stopped the aspirin as well. He remained hemodynamically stable. However, he kept having to receive blood products so he had continued withholding of his anticoagulants. Dr. Orlando was consulted to help with his assistance on that. His acute kidney injury resolved. He switched him from amiodarone to Multaq twice a day. They were okay with continuing to hold his anticoagulation and resume it as an outpatient after they see him in the office, or when it was okay for all other consultants. He had severe hypothyroidism and was quite uncontrolled so the levothyroxine was adjusted accordingly. Coreg was continued for his nonischemic cardiomyopathy. The polypectomy and biopsies showed hyperplastic polyps. Recommendation is to follow up with EGD in 1 year. The gastrointestinal services signed off on 09/13. On the , CT of the abdomen and pelvis with oral contrast only was performed, and it showed persistent hematoma adjacent to the gallbladder fossa that had increased markedly in sinus since the first CT. There was a decrease in the volume of free blood in the pelvis, and then it showed interval development of rectal and colonic wall diffuse thickening, consider colitis. He still had right-sided abdominal pain. Hemoglobin and hematocrit dropped which is why the CT was performed. On the , he had Dr. Bee perform the laparoscopic evacuation of intra-abdominal hematoma. Apparently on the , there was some decreased level of consciousness. It was probably secondary to having surgery, but he had a head CT that showed chronic ischemic changes and nothing acute. Looking at the nurses note for that day, apparently, family was in the room with him and called out for the nurse's help. Apparently, the patient's eyes had rolled back in his head, and had some visible shaking for a few seconds with some garbled speech and pinpoint pupils. That is when also that Dr. Thompson had been consulted as well. On the , an abdominal x-ray showed that the ileus versus partial small bowel obstruction, and the previous CT that had the colitis. I believe he was initiated on some antibiotics for that so he had an NG tube placed. Within 24 hours, he was resumed back on a diet. For the suspected acute proctocolitis, he was on ceftriaxone, metronidazole and Zosyn. PT/OT was consulted. The drain from the abdomen was removed. He was advanced on his diet, and finally started having bowel movements. They were loose and eventually just started improving on a daily basis. He still required the occasional blood transfusion, but thyroid function improved. Kidney function improved. Intestinal track improved. He had another abdominal x-ray that still showed persistent ileus or partial small bowel obstruction on the . They went ahead and did a chest, abdomen, and pelvis CT on the . NG tube had to be replaced at that point when they saw that, and the CT showed partial small bowel obstruction subphrenic and intraperitoneal hematoma with blood in the pelvis as well. There was really no big change in that. He had another head CT on the . There was no change on that. Because he was getting drowsy again, and apparently had the garbled speech and right sided facial drooping again. He was unable to smile or articulate his words. Left foot apparently was weak at that time. Pupils are equal and reactive so they called a code stroke. Head CT was no change. EKG had been performed during that Code stroke. It showed a QTc that was 507. I am not sure he was on telemetry prior to then. He had an EEG on the that was normal. On 09/22 is actually when Neurologic was consulted. Finally, on 09/23, his abdominal x-ray showed improvement in the abnormal distended small bowel. The NG tube was clamped on the . On the , he was initiated on a clear liquid diet. On the , his diet was advanced. There was no nausea or vomiting. On the , he started having the vomiting so diet was held. On the , he was started on Reglan to help wake up his stomach and increase motility. Apparently, he did have some generalized weakness and was receiving physical therapy and occupational therapy but he has refused rehab. Bowel movements is not a problem, and he continues to have those. At some point, he was actually started on peripheral nutrition. However, he was on p.o. liquid diet as well. Overall, he started to improve. He still had some nausea on and off, but he was continuing to improve on a daily basis by 10/02. Prior to discharge, they performed an upper GI and small bowel series which showed presbyesophagus, hiatal hernia, and reflux, but there were no more signs of small bowel obstruction. He was approved for discharge home. He was advanced to solid food prior to discharge, and then kept him on p.o. Reglan. DISCHARGE VITAL SIGNS: Temperature 98.8 degrees, heart rate 83, respiratory rate 16, blood pressure 137/64, and O2 saturation 98% on room air. DISCHARGE LABORATORY DATA: Hemoglobin 7.5 and hematocrit 23.7. Sodium 131, potassium 3.9, BUN 28, creatinine 2.2, glucose 160, and calcium 8.2. Last TSH on 09/30 was 24.52, but it started out at 68, and had even gone up to 81. MICROBIOLOGY: We did not do any cultures. The stool on 09/08 was positive for blood. Blood Bank: He had a total of 4 packed red blood cells and 1 fresh frozen plasma during this admission. DISCHARGE MEDICATIONS: 1. Allopurinol 300 mg p.o. nightly. 2. Multivitamin once nightly. 3. Apresoline 10 mg p.o. t.i.d. 4. Bydureon Bcise 2 mg subcutaneous every 7 days. 5. Calcitriol 0.25 mcg on Friday, Friday, and Fridays. 6. Coreg 12.5 mg p.o. twice daily. 7. Lipitor 80 mg p.o. nightly. 8. Aspirin 81 mg p.o. daily. 9. Bisacodyl 10 mg per rectum daily p.r.n. 10. Lasix 40 mg p.o. daily. 11. Multaq 400 mg p.o. twice daily. 12. Protonix 40 mg p.o. twice daily. 13. Reglan 5 mg p.o. t.i.d. before meals. 14. Synthroid 150 mcg p.o. daily. 15. Tylenol 650 mg p.o. every 6 hours p.r.n. DISCHARGE DIET: Diabetic. DISCHARGE ACTIVITY: No driving while taking pain medications. No heavy lifting. Activity as tolerated. Wound care. Keep incision clean and dry. No submersion of incision in water. DISCHARGE INSTRUCTIONS: If your condition changes, contact physician and/or return to the emergency department. Changes may include, but are not limited to shortness of breath, increased fatigue, excessive bleeding, unexplained weight loss or gain, unmanageable pain, signs or symptoms of infection. Please notify your physician for fever of 101 or above, foul smelling drainage from the incision, shortness of breath, chest pain, vomiting up blood, or coffee ground appearing material or blood in stool, or black tarry stools. PHYSICIAN FOLLOWUP: Dr. Orlando, Dr. Thompson, Dr. Arthur, and Dr. Bee. Your appointment with Dr. Bee is on 10/11 at 01:00 in the afternoon, and also follow up with the primary care provider Dr. Silvio So. DISCHARGE DISPOSITION: Home with home health. Dictated by CECELIA Young for Isael Persaud MD cc: CECELIA Young MD
== END 2019-10-05 11:32 | disposition home health service (06) | DRG 907 ==
LOC: ED 14:12 → EDIPHOLD 14:13 → SUATTDRO 14:13 → 2N 20:46 → 4N 09-11 17:29 → 2N 09-22 13:56 → 4N 09-30 15:17
PROVIDERS: ATTEND Internal Medicine
PROC: EN.HEAT (2019-09-10 11:23)